=== PATIENT | female | born 1945 | race Caucasian/White ===

== ENCOUNTER → 2017-04-26 15:13 | Outpatient (CLI) | payer MEDICARE, SELFPAY ==
[2017-04-26 17:08] LABS: Absolute Lymphocyte Count 1.93 X10^3/ul (0.83-4.51); Absolute Neutrophil Count 3.6 X10^3/uL (2.0-7.7); Basophil# 0.02 X10^3/uL; Basophil% 0.3 % (0-1); Eosinophil# 0.12 X10^3/uL; Eosinophils% 1.9 % (0-5); Hematocrit 41.2 % (37-47); Hemoglobin 12.5 g/dl (12.0-15.0); Lymphocyte # 1.93 X10^3/ul (4.0); Lymphocyte % 31.1 % (19-41); Mean Corp Hgb Conc 30.3 g/gl (32-36); Mean Corpuscular Hgb 29.1 pg (27.0-32.0); Mean Platelet Vol. 11.1 fl (6.2-12.0); Monocyte# 0.49 X10^3/uL; Monocyte% 7.9 % (0-10); Neutrophil # 3.64 X10^3/uL (2.7-7.7); Neutrophil % 58.6 % (47-70); Platelet Count 147 K/mm3 (150-450); RBC Distribution Width CV 15.1 % (11.6-14.6); RBC Distribution Width SD 50.7 fl (35.1-43.9); Red Blood Count 4.29 M/mm3 (4.2-5.4); White Blood Count 6.2 K/mm3 (4.4-11.0)
[2017-04-26 17:11] LABS: POSITIVE COUNT NO; POSITIVE DIFFERENTIAL NO; POSITIVE MORPHOLOGY NO
[2017-04-26 17:18] LABS: ALB/GLOB Ratio 0.7 RATIO (0.9-2.4); AST(SGOT) 33 U/L (15-37); Alanine Aminotransfer ALT/SGPT 32 U/L (13-56); Albumin, Serum 3.1 g/dL (3.2-5.0); Alkaline Phosphatase 99 U/L (45-117); Anion Gap 5 (5-15); BUN 15 mg/dL (7-18); BUN/Creat Ratio 15.2 RATIO (10-20); Calcium,Total 9.4 mg/dL (8.5-10.1); Chloride 100 mmol/L (98-107); Creatinine, Serum 0.99 mg/dL (0.55-1.02); EST Glomerular Filtration Rate 59 mL/min (>60); Est Glom Filt Rate - Afr Amer 71 mL/min (>60); Globulin 4.3 g/dL (2.2-4.2); Glucose 192 mg/dL (74-106); Potassium 4.3 mmol/L (3.5-5.1); Protein, Total 7.4 g/dL (6.4-8.2); Sodium Level 142 mmol/L (136-145); Thyroid Stim Hormone (TSH) 2.28 uIU/mL (0.358-3.74)
[2017-04-27 10:31] LABS: Vitamin D,25 Hydroxy 27.3 ng/mL (19.95-100.01)
== END ==
PROVIDERS: Family Provider Family Medicine Geriatric Medicine; PCP Family Medicine Geriatric Medicine; Visit Provider Family Medicine Geriatric Medicine
DX: E87.6 Hypokalemia (principal); E11.9 Type 2 diabetes mellitus without complications; I10 Essential (primary) hypertension; E55.9 Vitamin D deficiency, unspecified
CPT/HCPCS: 36415; 80053; 82306; 84443; 85025

== ENCOUNTER → 2017-07-18 13:57 | Outpatient (CLI) | payer MEDICARE, SELFPAY ==
--- NOTE | 2017-07-18 14:20 | RAD_ITS ---
STUDY: X-RAY - CERVICAL SPINE REASON FOR EXAM: Female, 71 years old. Pain TECHNIQUE: 3 view(s) of the cervical spine were obtained. COMPARISON: None FINDINGS: Normal anterior atlantoaxial articulation. Normal odontoid process. There is straightening of the normal cervical lordosis. There is multi-level endplate spondylosis. There is multi-level degenerative disc disease with multilevel disc space narrowing. The soft tissue structures are unremarkable. There is no demonstrated fracture of the cervical spine. RAD/Cerv Spine 2 or 3 Views IMPRESSION: Degenerative changes. No acute abnormality. Electronically Signed: Antonio Man MD at 15:14 EDT , Service support ,
== END ==
LOC: RAD 13:59
PROVIDERS: Family Provider Family Medicine Geriatric Medicine; PCP Family Medicine Geriatric Medicine; Visit Provider Anesthesiology Pain Medicine
DX: M54.2 Cervicalgia (principal)
CPT/HCPCS: 72040

== ENCOUNTER 2017-07-26 11:26 | Inpatient (IN) | payer MEDICARE, SELFPAY ==
[2017-07-26] VITALS (20 sets, daily range): BP systolic 93–136; BP diastolic 39–109; PULSE 84–128; RESP 12–26; TEMP 36.6–37.9; O2SAT 94–100; BMI 52.8; BMI 50.8
--- NOTE | 2017-07-26 11:51 | EKG12_ITS ---
Test Reason : SOB Blood Pressure : / mmHG Vent. Rate : 111 BPM Atrial Rate : 111 BPM P-R Int : 182 ms QRS Dur : 112 ms QT Int : 344 ms P-R-T Axes : 074 -62 062 degrees QTc Int : 467 ms Sinus tachycardia Left axis deviation Incomplete left bundle branch block Abnormal ECG Confirmed by SANTIAGO RODRIGUEZ, ADELAIDE ([id number]), communications editor RUTH JUAREZ ([id number]) on 08/01/2017 1:38:34 PM Referred By: MANUEL/LOLA Confirmed By:ADELAIDE HENDERSON MD
--- NOTE | 2017-07-26 11:52 | CT_ITS ---
STUDY: CT ABDOMEN AND PELVIS WITHOUT CONTRAST REASON FOR EXAM: Female, 71 years old. Right upper quadrant pain. Dyspnea. RADIATION DOSAGE (If Supplied By Facility): CTDIvol = ( 24.18 ) mGy, DLP = ( 1189.94 ) mGycm TECHNIQUE: Transaxial images were obtained from the dome of the diaphragm to the symphysis pubis without oral contrast, and without intravenous contrast. Sagittal and coronal images were reconstructed. Individualized dose optimization techniques were used for this CT. COMPARISON: X-ray chest 07/26/2017. FINDINGS: Body wall soft tissues: There is a healed ventral midline abdominal wall incision, infraumbilical. There is morbid obesity. Osseous structures: Kyphoplasty T12. Old mild central superior plate compression deformities of T10 and T11. Old compression deformity of L3 and L5 with mild wedging. Generalized osteopenia. Thoracal lumbar junction kyphosis. Mild lumbar scoliosis. No apparent high-grade lumbar stenosis. Inferior chest: Mild bibasilar atelectasis slightly greater on the right. Lung bases otherwise clear. There is mild cardiomegaly. No pericardial effusion. Coronary calcifications are present. Distal esophagus is normal. Hepatobiliary: There is evidence of hepatic steatosis with no significant hepatomegaly. Post cystectomy. Nondilated intrahepatic biliary tree. Minimal chronic-appearing ectasia of the common bile duct. Pancreas: Mild atrophy. Spleen: Normal. Adrenal glands: Normal. Urogenital: Unremarkable kidneys, collecting systems, ureters, urinary bladder. Uterus absent. No adnexal mass or cyst. Pelvic floor and sidewalls and retroperitoneum: No mass or adenopathy. Vasculature: Mild atherosclerosis. Stomach: No acute process. Small bowel and mesentery: No acute process. Large bowel: The appendix is not clearly visible. There are no acute inflammatory features in the region of the cecum. There is a moderately prominent stool burden distributed throughout the large bowel, not extreme, unlikely to represent constipation. Clinically correlate. No acute inflammatory features of the large bowel or rectum. No evidence of large bowel malignancy. Free fluid or free air: None. CT/Abdomen/Pelvis without Cont IMPRESSION: 1. No definitive acute intra-abdominal process is identified. 2. Bibasilar pulmonary atelectasis is greater on the right, which may reflect splinting greater on the right in the setting of right upper quadrant pain. 3. There is evidence of hepatic steatosis although not severe, and there is no urbano enlargement of the liver. The gallbladder surgically absent. No acute biliary process is evident. Etiology of the patient's discomfort is not apparent on the study. 4. Multiple chronic appearing compression fractures of the lower thoracic and lumbar spine. If spinal pathology is suspected, consider follow-up spinal CT scan or MRI for additional characterization. Electronically Signed: Ridge Dominguez, at 13:16 EDT Tel , Service support ,
--- NOTE | 2017-07-26 12:02 | ED.VISSUMM ---
- ER Visit Summary Date of Service: 07/26/17 Chief Complaint: [] Weakness, shortness of breath, abdominal pain History of Present Illness: The patient is a 71 F [] morbidly obese female complaining of generalized weakness, right upper quadrant abdominal pain, shortness of breath. Patient has a history of COPD on 2.5 L of nasal cannula oxygen at all times. Denies cough. Denies fevers. Denies nausea/vomiting. Denies chest pain. Reports increased weakness with difficulty performing ADLs. Patient reports previous history of appendectomy, cholecystectomy, hysterectomy. Physical Examination: [] Afebrile, vital signs stable. Morbidly obese elderly female no acute distress cardiovascular exam is tachycardic with regular rhythm. Lungs are clear to auscultation with diminished breath sounds globally. Abdomen is large/obese, soft, mild right upper quadrant tenderness. No guarding or rebound. No significant lower extremity edema. Test Results: [] CT abdomen/pelvis: Negative. Chest x-ray: Right hilar infiltrate. Labs: Normal CBC, BMP. INR 1.1. Troponin negative. ABG reveals a pH of 7.342 with a PCO2 of 72 and a bicarbonate level of 39.2. EKG: Normal sinus rhythm with rate of 111 with 1 PVC. Emergency Department Course and Treatment: [] Patient was evaluated for shortness of breath and weakness. X-ray reveals committee acquired pneumonia. Patient was given intravenous Rocephin and intravenous azithromycin. Blood cultures ?2 were obtained. Patient did receive morphine and Zofran upon arrival for symptomatic treatment. She also received a small normal saline bolus of 500 cc. Case discussed with the hospitalist. Patient will be admitted to the general medical floor for further treatment and evaluation of community-acquired pneumonia. Treatment Plan: [] Admit for intravenous antibiotics and further respiratory treatment. Disposition: [] Admit, general medical floor. Stable. Impression: [] Community acquired pneumonia This note was generated with [employer] ([employer]) dictation software. It may contain incorrect words, spelling, and punctuation that were not noted in review of the chart prior to signing ED Disposition - Plan for ED Patient: Chief Complaint: Shortness of Breath Referrals: Stanley Page Chi, MD [Primary Care Provider] -
[2017-07-26] MEDS: Morphine 2 MG/ML Syringe IV (12:11)
[2017-07-26] MEDS: Ondansetron 4 MG/2 ML Vial IV (12:13)
[2017-07-26 12:17] LABS: Absolute Lymphocyte Count 2.73 X10^3/ul (0.83-4.51); Absolute Neutrophil Count 6.2 X10^3/uL (2.0-7.7); Basophil# 0.02 X10^3/uL; Basophil% 0.2 % (0-1); Eosinophil# 0.06 X10^3/uL; Eosinophils% 0.6 % (0-5); Hematocrit 48.9 % (37-47); Hemoglobin 14.8 g/dl (12.0-15.0); Lymphocyte # 2.73 X10^3/ul (4.0); Lymphocyte % 28.2 % (19-41); Mean Corp Hgb Conc 30.3 g/gl (32-36); Mean Corpuscular Hgb 28.3 pg (27.0-32.0); Mean Corpuscular Volume 93.5 fL (81-99); Mean Platelet Vol. 10.6 fl (6.2-12.0); Monocyte# 0.69 X10^3/uL; Monocyte% 7.1 % (0-10); Neutrophil # 6.17 X10^3/uL (2.7-7.7); Neutrophil % 63.8 % (47-70); Platelet Count 134 K/mm3 (150-450); RBC Distribution Width CV 14.5 % (11.6-14.6); RBC Distribution Width SD 48.9 fl (35.1-43.9); Red Blood Count 5.23 M/mm3 (4.2-5.4); White Blood Count 9.7 K/mm3 (4.4-11.0)
--- NOTE | 2017-07-26 12:25 | RAD_ITS ---
STUDY: X-RAY CHEST REASON FOR EXAM: Female, 71 years old. Shortness of breath/dyspnea. TECHNIQUE: Single AP portable view of the chest. COMPARISON: Comparison is made with prior study dated August 30, 2016. FINDINGS: EKG electrodes are seen. Limited inspiratory effort. Possible right infrahilar infiltrate and/or atelectasis. There is no demonstrated pleural abnormality. There is mild cardiac enlargement. Normal mediastinum and radha. Normal visualized pulmonary arteries. There is atherosclerotic calcification of the aortic arch with tortuosity. There are diffuse degenerative changes of the visualized thoracic spine. There is degenerative osteoarthritis of the bilateral shoulders. There is no demonstrated abnormality of the visualized soft tissue structures of the upper abdomen. RAD/Chest 1 View (Portable) IMPRESSION: Focal right infrahilar infiltrate and/or atelectasis. Electronically Signed: Jose Montenegro MD at 12:48 EDT Tel [phone], Service support ,
[2017-07-26 12:26] LABS: POSITIVE COUNT NO; POSITIVE DIFFERENTIAL NO; POSITIVE MORPHOLOGY NO
[2017-07-26 12:29] LABS: ALB/GLOB Ratio 0.6 RATIO (0.9-2.4); AST(SGOT) 75 U/L (15-37); Alanine Aminotransfer ALT/SGPT 43 U/L (13-56); Albumin, Serum 3.3 g/dL (3.2-5.0); Alkaline Phosphatase 109 U/L (45-117); Anion Gap 7 (5-15); BUN 11 mg/dL (7-18); BUN/Creat Ratio 9.5 RATIO (10-20); Calcium,Total 9.1 mg/dL (8.5-10.1); Chloride 95 mmol/L (98-107); Creatinine, Serum 1.16 mg/dL (0.55-1.02); EST Glomerular Filtration Rate 49 mL/min (>60); Est Glom Filt Rate - Afr Amer 59 mL/min (>60); Estimated Creatinine Clearance 31.95 ml/min; Globulin 5.3 g/dL (2.2-4.2); Glucose 213 mg/dL (74-106); Lipase 61 U/L (73-393); Potassium 5.3 mmol/L (3.5-5.1); Protein, Total 8.6 g/dL (6.4-8.2); Sodium Level 138 mmol/L (136-145)
[2017-07-26 12:51] LABS: Allen Test POS; Base Excess 13 mmol/L (-2 to +2); Bicarbonate 39.2 mmol/L (22-26); Blood Gas Specimen Type ART; O2 Delivery Device Nasal Can; PO2 89 mmHG (75-100); SITE R Radial; SO2 96 % (95-99); Time Given 1234; Total Carbon Dioxide 41 mmol/L; pCO2 72.3 mmHg (35-45); pH 7.34 (7.35-7.45)
[2017-07-26 12:53] LABS: International Normalized Ratio 1.1; Prothrombin Time (Protime)PT. 14.1 SECONDS (11.7-14.9)
[2017-07-26 13:01] LABS: BNP,B-Type NATRIURETIC PEPTIDE 45.4 pg/mL (0-100)
--- NOTE | 2017-07-26 13:49 | PCM.HP.STD ---
Problem List (1) Chronic neck pain Status: Chronic (2) Morbid obesity Status: Chronic (3) HTN (hypertension) Status: Chronic Qualifiers: Hypertension type: essential hypertension Qualified Code(s): I10 - Essential (primary) hypertension (4) HLD (hyperlipidemia) Status: Chronic Qualifiers: Hyperlipidemia type: unspecified Qualified Code(s): E78.5 - Hyperlipidemia, unspecified (5) COPD (chronic obstructive pulmonary disease) Status: Chronic Qualifiers: COPD type: unspecified COPD Qualified Code(s): J44.9 - Chronic obstructive pulmonary disease, unspecified (6) SARAH (obstructive sleep apnea) Status: Chronic (7) Diabetes mellitus, type II Status: Chronic Qualifiers: Diabetes mellitus jail insulin use: without tank terminal gauger use Diabetes mellitus complication status: with unspecified complications Qualified Code(s): E11.8 - Type 2 diabetes mellitus with unspecified complications (8) Anxiety and depression Status: Chronic (9) Chronic respiratory failure with hypoxia Status: Acute (10) Acute respiratory failure with hypoxia and hypercapnia Status: Acute (11) COPD exacerbation Status: Acute (12) Pneumonia Status: Acute Qualifiers: Pneumonia type: due to unspecified organism Laterality: right Lung location: unspecified part of lung Qualified Code(s): J18.9 - Pneumonia, unspecified organism History of Present Illness Date of Admission: 07/26/17 Chief Complaint: Dyspnea The patient is a 71 y/o F w/ PMHx: Chronic neck pain following w/ Dr. Galeano, Morbid Obesity, SARAH, HTN, HLD, Former Tobacco use, Chronic COPD w/ Chronic Hypoxic Respiratory Failure (2.5L NC), Diabetes mellitus type II, Anxiety and Depression who presents to the [facility] ED on 07/26/17 with shortness of breath, mild BL UQ abdominal pain, mildly increased cough, increased weakness x 24-48 hours. does note that she has been wheezing and also notes that she has become more fatigued and sleepy over the last several hours. In the ED work-up included T 98, heart rate 128, BP 93/53, respiratory rate 19, 96% on 5 L nasal cannula, CBC with WBC 9.7, hemoglobin 14.8, platelet 134 without shift, unremarkable coags, ABG with pH 7.34, bicarb 39.2, oxygen saturation 13, PCO2 72.3, PO2 89 on 4 L nasal cannula, CMP with potassium 5.3, chloride 95, CO2 36, BUN/creatinine 11/1.16, glucose 213, lactic acid 2, AST/ALT 75/43, troponin less than 0.015, BNP 45.4, EKG with tachycardic, chest x-ray focal right infrahilar infiltrate and or atelectasis, CT abdomen and pelvis with no acute definitive intra-abdominal process, bibasilar pulmonary atelectasis greater on the right which may reflect splinting greater on the right in the setting of right upper quadrant pain, evidence of hepatic steatosis although not severe with no urbano enlargement of the liver, no acute biliary process noted, multiple chronic appearing compression fractures of the lower thoracic and lumbar spine. In the ED patient administered normal saline, Zofran, morphine, Rocephin, azithromycin. Past Medical History Past Medical History (Chronic Problems): Chronic Problems Chronic neck pain (Chronic) Morbid obesity (Chronic) HTN (hypertension) (Chronic) HLD (hyperlipidemia) (Chronic) COPD (chronic obstructive pulmonary disease) (Chronic) SARAH (obstructive sleep apnea) (Chronic) Diabetes mellitus, type II (Chronic) Anxiety and depression (Chronic) Allergies No Known Allergies Allergy (Verified 07/26/17 11:29) Home Medications: Ambulatory Orders Medication Instructions Recorded Duloxetine HCl 60 mg PO BID 03/28/16 Furosemide 40 mg PO DAILY 03/28/16 Meclizine HCl [Antivert] 25 mg PO BID 03/28/16 Memantine HCl/Donepezil HCl 1 each PO DAILY 03/28/16 [Namzaric 28 mg-10 mg Capsule] Morphine Sulfate [Morphine Sulfate 15 mg PO BID 03/28/16 ER] Multivitamin [Multiple Vitamins] 1 each PO DAILY 03/28/16 Trazodone HCl 100 mg PO QHS 03/28/16 Colchicine 0.6 mg PO DAILY 07/26/17 Metformin HCl [Glucophage] 500 mg PO BID 07/26/17 Potassium Chloride [K-Dur] 20 meq PO BID 07/26/17 Pravastatin Sodium [Pravastatin 40 mg PO QHS 07/26/17 Sodium] Surgical History: - - Appendectomy, Cholecystectomy, Hysterectomy, BL TKR. 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 Tobacco Use: Non-smoker Alcohol: None Drugs: None - *Family History Maternal History Items: Cancer Paternal History Items: Cancer Review of Systems Constitutional: Reports: Malaise, Weakness, Fatigue. Denies: Chills, Fever, Weight Change HEENT: Denies: Head Aches, Sinus Congestion, Sinus Drainage Cardiovascular: Denies: Chest Pain, Palpitations Respiratory: Reports: Cough, Shortness of Breath, Shortness of breath at rest, Shortness of breath upon exertion, Sputum production, Wheezing Gastrointestinal: Reports: Abdominal Pain. Denies: Nausea, Vomiting Genitourinary: Denies: Dysuria Musculoskeletal: Reports: Back Pain, Neck Pain. Denies: Joint Pain, Joint Tenderness Skin: Denies: Rash, Wounds Neurological: Denies: Numbness, Tingling, Focal weakness Psychiatric: Reports: Anxiety, Depression. Denies: Homicidal Ideations, Suicidal Ideations Hematologic/ Lymphatic: Denies: Easy Bruising, Easy Bleeding VTE Information - Inpt Only VTE Present on Admission: No VTE Mechan Device Prophylaxis: SCD's VTE Pharm Prophylaxis ordered?: Yes Patient Problems: Active and Suspected Problems Chronic respiratory failure with hypoxia (Acute) Acute respiratory failure with hypoxia and hypercapnia (Acute) COPD exacerbation (Acute) Pneumonia (Acute) Subjective: Seated upright in the ED bed, lethargic, falling asleep easily. Objective: Physical Examination: General: awakens to stimuli, not markedly alert, oriented to person, place, time, sluggish responses, cooperative, seated upright in the ED bed, improved since initial presentation, still accessory muscle usage, still increased RR. Skin: normal color, turgor, no icterus, cyanosis. HEENT: AT/NC, EOMI but difficult to assess with lethargy, PERRLA, dry MM, no carotid bruits or JVD noted; although difficult to assess with thickened neck. Lungs: Severely diffusely diminished, distant BS, notably decreased bases, occasional soft end expiratory wheeze, poor effort, increased RR, accessory muscle usage, lethargic. Heart: Tachycardic with regular rhythm; no gallop, rub audible. Abdomen: soft, morbidly obese, BL UQ TTP, ND, distant and hypoactive BS, no HSM; although difficult to assess w/ discomfort and habitus. Extremities: no cyanosis, clubbing, or edema. Neurological: awakens to stimuli, not markedly alert, oriented to person, place, time, sluggish responses; cognitive function not baseline intact; pupils equally reactive to light and accomodation; cranial nerves II-XII grossly normal, moving all 4 extremities but severely globally decreased secondary to acute presentation. Psychiatric: affect appears flat, fatigued lethargic, no acute evidence of depressive or anxiety feelings. - Physical Exam Vital Signs Temp Pulse Resp BP Pulse Ox 98 F 128 H 19 H 93/53 L 95 07/26/17 11:27 07/26/17 13:02 07/26/17 13:02 07/26/17 13:02 07/26/17 13:02 Oxygen Flow Rate (L/min) 4 Oxygen Delivery Method Nasal Cannula Weight: 270 lb 8.115 oz Body Mass Index (BMI) 52.8 Laboratory Tests Past 24 Hrs 07/26/17 07/26/17 07/26/17 11:30 11:30 11:30 WBC 9.7 RBC 5.23 Hgb 14.8 Hct 48.9 H MCV 93.5 MCH 28.3 MCHC 30.3 L RDW 14.5 RDW Differential 48.9 H Plt Count 134 L MPV 10.6 Immature Gran % (Auto) 0.100 Neut % (Auto) 63.8 Lymph % (Auto) 28.2 Mcdonald % (Auto) 7.1 Eos % (Auto) 0.6 Baso % (Auto) 0.2 Absolute Neuts (auto) 6.2 Absolute Lymphs (auto) 2.73 Total Counted Not Reportable PT 14.1 INR 1.1 Specimen Type Sample Site pH Bicarbonate Actual POC Total CO2 Base Excess O2 Saturation ABG pCO2 ABG pO2 Jassi Test O2 Delivery Device Liter Flow Blood Gas Notified Whom Blood Gas Notified Time Sodium 138 Potassium 5.3 H Chloride 95 L Carbon Dioxide 36.0 H Anion Gap 7 BUN 11 Creatinine 1.16 H Estim Creat Clear Calc 31.95 Est GFR (MDRD) Af Amer 59 L Est GFR (MDRD) Non-Af 49 L BUN/Creatinine Ratio 9.5 L Glucose 213 H Lactic Acid Calcium 9.1 Total Bilirubin 0.80 AST 75 H ALT 43 Alkaline Phosphatase 109 Troponin I < 0.015 B-Natriuretic Peptide Total Protein 8.6 H Albumin 3.3 Globulin 5.3 H Albumin/Globulin Ratio 0.6 L Lipase 61 L 0507/26/17 07/26/17 11:30 12:29 12:40 WBC RBC Hgb Hct MCV MCH MCHC RDW RDW Differential Plt Count MPV Immature Gran % (Auto) Neut % (Auto) Lymph % (Auto) Mcdonald % (Auto) Eos % (Auto) Baso % (Auto) Absolute Neuts (auto) Absolute Lymphs (auto) Total Counted PT INR Specimen Type ART Sample Site R Radial pH 7.34 L Bicarbonate Actual 39.2 H POC Total CO2 41 Base Excess 13 H O2 Saturation 96 ABG pCO2 72.3 H* ABG pO2 89 Jassi Test POS O2 Delivery Device Nasal Can Liter Flow 4.0 Blood Gas Notified Whom ED Blood Gas Notified Time 1234 Sodium Potassium Chloride Carbon Dioxide Anion Gap BUN Creatinine Estim Creat Clear Calc Est GFR (MDRD) Af Amer Est GFR (MDRD) Non-Af BUN/Creatinine Ratio Glucose Lactic Acid 2.0 Calcium Total Bilirubin AST ALT Alkaline Phosphatase Troponin I B-Natriuretic Peptide 45.4 Total Protein Albumin Globulin Albumin/Globulin Ratio Lipase Assessment/Plan Active and Suspected Problems Chronic respiratory failure with hypoxia (Acute) Acute respiratory failure with hypoxia and hypercapnia (Acute) COPD exacerbation (Acute) Pneumonia (Acute) The patient is a 71 y/o F w/ PMHx: Chronic neck pain following w/ Dr. Galeano, Morbid Obesity, SARAH, HTN, HLD, Former Tobacco use, Chronic COPD w/ Chronic Hypoxic Respiratory Failure (2.5L NC), Diabetes mellitus type II, Anxiety and Depression who presents to the [facility] ED on 07/26/17 with shortness of breath, mild BL UQ abdominal pain, mildly increased cough, increased weakness x 24-48 hours. does note that she has been wheezing and also notes that she has become more fatigued and sleepy over the last several hours. (1) Acute Encephalopathy secondary to Acute Hypoxic and Hypercarbic Respiratory Failure on Chronic Hypoxic Respiratory Failure secondary to Community Acquired Pneumonia and Acute on Chronic COPD Exacerbation: Will admit to [facility] w/ Telemetry, initiate BIPAP therapy given sedate presentation and ABG w/ hypercarbia, transition to oxygen NC once appropriate w/ wean as tolerated to home oxygen supplementation, continue ATC duonebs, PRN albuterol, maintained on IV, HOB, IS parameters w/ pending sputum cultures and urine antigens. Bld cx x 2 obtained in the ED. (2) Hyperkalemia: Admission potassium 5.3, not markedly elevated, repeat level in a.m. Hold potassium supplementation. (3) Diabetes mellitus type II: Hold metformin, hemoglobin A1c pending, n.p.o. status until improved and then transition to ADA diet, accu checks w/ ISS. (4) Hypertension: Continue home regimen including Lasix, PRN hydralazine. (5) Hyperlipidemia: Continue home statin regimen. (6) Dementia, Alzheimer's disease without behavioral disturbance history: Maintain on home regimen, frequent re-orientation as needed. (7) Morbid Obesity: Weight loss and lifestyle changes encouraged, nutrition consulted. (8) Chronic neck pain: Fall precautions, PT/OT assessment once improved, following w/ Dr. Galeano, position changes. Hold morphine chronic BID regimen until status improves then restart to avoid withdrawal. (9) Former tobacco use: Encouraged continued cessation. (10) Anxiety and Depression: Maintain on home cymbalta regimen. Hold trazodone until status improves. (12) SARAH: BiPAP currently as noted above. (13) DVT Prophylaxis: SCDs, renally dosed lovenox. (14) CODE status: Discussed CODE status at length including difference between FULL code, DNR-CCA and DNR-CC status. Following discussions about the differences in these status, requested FULL CODE status. Advanced Care Planning Face to Face Time: 17 minutes. Code Visit Inpatient E&M: 89617 Init Hosp L3 Procedures: 56266 Advncd Care Plan 30 Min
--- NOTE | 2017-07-26 13:57 | HP.PCM_ITS ---
Problem List (1) Chronic neck pain Status: Chronic (2) Morbid obesity Status: Chronic (3) HTN (hypertension) Status: Chronic Qualifiers: Hypertension type: essential hypertension Qualified Code(s): I10 - Essential (primary) hypertension (4) HLD (hyperlipidemia) Status: Chronic Qualifiers: Hyperlipidemia type: unspecified Qualified Code(s): E78.5 - Hyperlipidemia , unspecified (5) COPD (chronic obstructive pulmonary disease) Status: Chronic Qualifiers: COPD type: unspecified COPD Qualified Code(s): J44.9 - Chronic obstructive pulmonary disease, unspecified (6) SARAH (obstructive sleep apnea) Status: Chronic (7) Diabetes mellitus, type II Status: Chronic Qualifiers: Diabetes mellitus retirement insulin use: without retirement use Diabetes mellitus complication status: with unspecified complications Qualified Code(s) : E11.8 - Type 2 diabetes mellitus with unspecified complications (8) Anxiety and depression Status: Chronic (9) Chronic respiratory failure with hypoxia Status: Acute (10) Acute respiratory failure with hypoxia and hypercapnia Status: Acute (11) COPD exacerbation Status: Acute (12) Pneumonia Status: Acute Qualifiers: Pneumonia type: due to unspecified organism Laterality: right Lung location: unspecified part of lung Qualified Code(s): J18.9 - Pneumonia, unspecified organism History of Present Illness Date of Admission: 07/26/17 Chief Complaint: Dyspnea The patient is a 71 y/o F w/ PMHx: Chronic neck pain following w/ Dr. Galeano, Morbid Obesity, SARAH, HTN, HLD, Former Tobacco use, Chronic COPD w/ Chronic Hypoxic Respiratory Failure (2.5L NC), Diabetes mellitus type II, Anxiety and Depression who presents to the [facility] ED on 07/26/17 with shortness of breath, mild BL UQ abdominal pain, mildly increased cough, increased weakness x 24-48 hours. does note that she has been wheezing and also notes that she has become more fatigued and sleepy over the last several hours. In the ED work-up included T 98, heart rate 128, BP 93/53, respiratory rate 19, 96% on 5 L nasal cannula, CBC with WBC 9.7, hemoglobin 14.8, platelet 134 without shift, unremarkable coags, ABG with pH 7.34, bicarb 39.2, oxygen saturation 13, PCO2 72.3, PO2 89 on 4 L nasal cannula, CMP with potassium 5.3, chloride 95, CO2 36, BUN/creatinine 11/1.16, glucose 213, lactic acid 2, AST/ALT 75/43, troponin less than 0.015, BNP 45.4, EKG with tachycardic, chest x-ray focal right infrahilar infiltrate and or atelectasis, CT abdomen and pelvis with no acute definitive intra-abdominal process, bibasilar pulmonary atelectasis greater on the right which may reflect splinting greater on the right in the setting of right upper quadrant pain, evidence of hepatic steatosis although not severe with no urbano enlargement of the liver, no acute biliary process noted, multiple chronic appearing compression fractures of the lower thoracic and lumbar spine. In the ED patient administered normal saline, Zofran, morphine, Rocephin, azithromycin. Past Medical History Past Medical History (Chronic Problems): Chronic Problems Chronic neck pain (Chronic) Morbid obesity (Chronic) HTN (hypertension) (Chronic) HLD (hyperlipidemia) (Chronic) COPD (chronic obstructive pulmonary disease) (Chronic) SARAH (obstructive sleep apnea) (Chronic) Diabetes mellitus, type II (Chronic) Anxiety and depression (Chronic) Allergies No Known Allergies Allergy (Verified 07/26/17 11:29) Home Medications: Ambulatory Orders Medication Instructions Recorded Duloxetine HCl 60 mg PO BID 03/28/16 Furosemide 40 mg PO DAILY 03/28/16 Meclizine HCl [Antivert] 25 mg PO BID 03/28/16 Memantine HCl/Donepezil HCl 1 each PO DAILY 03/28/16 [Namzaric 28 mg-10 mg Capsule] Morphine Sulfate [Morphine Sulfate 15 mg PO BID 03/28/16 ER] Multivitamin [Multiple Vitamins] 1 each PO DAILY 03/28/16 Trazodone HCl 100 mg PO QHS 03/28/16 Colchicine 0.6 mg PO DAILY 07/26/17 Metformin HCl [Glucophage] 500 mg PO BID 07/26/17 Potassium Chloride [K-Dur] 20 meq PO BID 07/26/17 Pravastatin Sodium [Pravastatin 40 mg PO QHS 07/26/17 Sodium] Surgical History: - - Appendectomy, Cholecystectomy, Hysterectomy, BL TKR. Psychiatric History: Anxiety, Depression PROCESS LEAD History: No pertinent PROCESS LEAD history Lives: Spouse/ Significant Other Smoking Status: Former smoker - Quit ~ 20 years prior, at least 1 ppd. Tobacco Use: Non-smoker Alcohol: None Drugs: None - *Family History Maternal History Items: Cancer Paternal History Items: Cancer Review of Systems Constitutional: Reports: Malaise, Weakness, Fatigue. Denies: Chills, Fever, Weight Change HEENT: Denies: Head Aches, Sinus Congestion, Sinus Drainage Cardiovascular: Denies: Chest Pain, Palpitations Respiratory: Reports: Cough, Shortness of Breath, Shortness of breath at rest, Shortness of breath upon exertion, Sputum production, Wheezing Gastrointestinal: Reports: Abdominal Pain. Denies: Nausea, Vomiting Genitourinary: Denies: Dysuria Musculoskeletal: Reports: Back Pain, Neck Pain. Denies: Joint Pain, Joint Tenderness Skin: Denies: Rash, Wounds Neurological: Denies: Numbness, Tingling, Focal weakness Psychiatric: Reports: Anxiety, Depression. Denies: Homicidal Ideations, Suicidal Ideations Hematologic/ Lymphatic: Denies: Easy Bruising, Easy Bleeding VTE Information - Inpt Only VTE Present on Admission: No VTE Mechan Device Prophylaxis: SCD's VTE Pharm Prophylaxis ordered?: Yes Patient Problems: Active and Suspected Problems Chronic respiratory failure with hypoxia (Acute) Acute respiratory failure with hypoxia and hypercapnia (Acute) COPD exacerbation (Acute) Pneumonia (Acute) Subjective: Seated upright in the ED bed, lethargic, falling asleep easily. Objective: Physical Examination: General: awakens to stimuli, not markedly alert, oriented to person, place, time , sluggish responses, cooperative, seated upright in the ED bed, improved since initial presentation, still accessory muscle usage, still increased RR. Skin: normal color, turgor, no icterus, cyanosis. HEENT: AT/NC, EOMI but difficult to assess with lethargy, PERRLA, dry MM, no carotid bruits or JVD noted; although difficult to assess with thickened neck. Lungs: Severely diffusely diminished, distant BS, notably decreased bases, occasional soft end expiratory wheeze, poor effort, increased RR, accessory muscle usage, lethargic. Heart: Tachycardic with regular rhythm; no gallop, rub audible. Abdomen: soft, morbidly obese, BL UQ TTP, ND, distant and hypoactive BS, no HSM ; although difficult to assess w/ discomfort and habitus. Extremities: no cyanosis, clubbing, or edema. Neurological: awakens to stimuli, not markedly alert, oriented to person, place , time, sluggish responses; cognitive function not baseline intact; pupils equally reactive to light and accomodation; cranial nerves II-XII grossly normal , moving all 4 extremities but severely globally decreased secondary to acute presentation. Psychiatric: affect appears flat, fatigued lethargic, no acute evidence of depressive or anxiety feelings. - Physical Exam Vital Signs Temp Pulse Resp BP Pulse Ox 98 F 128 H 19 H 93/53 L 95 07/26/17 11:27 07/26/17 13:02 07/26/17 13:02 07/26/17 13:02 07/26/17 13:02 Oxygen Flow Rate (L/min) 4 Oxygen Delivery Method Nasal Cannula Weight: 270 lb 8.115 oz Body Mass Index (BMI) 52.8 Laboratory Tests Past 24 Hrs 07/26/17 07/26/17 07/26/17 11:30 11:30 11:30 WBC 9.7 RBC 5.23 Hgb 14.8 Hct 48.9 H MCV 93.5 MCH 28.3 MCHC 30.3 L RDW 14.5 RDW Differential 48.9 H Plt Count 134 L MPV 10.6 Immature Gran % (Auto) 0.100 Neut % (Auto) 63.8 Lymph % (Auto) 28.2 [place] % (Auto) 7.1 Eos % (Auto) 0.6 Baso % (Auto) 0.2 Absolute Neuts (auto) 6.2 Absolute Lymphs (auto) 2.73 Total Counted Not Reportable PT 14.1 INR 1.1 Specimen Type Sample Site pH Bicarbonate Actual POC Total CO2 Base Excess O2 Saturation ABG pCO2 ABG pO2 Jassi Test O2 Delivery Device Liter Flow Blood Gas Notified Whom Blood Gas Notified Time Sodium 138 Potassium 5.3 H Chloride 95 L Carbon Dioxide 36.0 H Anion Gap 7 BUN 11 Creatinine 1.16 H Estim Creat Clear Calc 31.95 Est GFR (MDRD) Af Amer 59 L Est GFR (MDRD) Non-Af 49 L BUN/Creatinine Ratio 9.5 L Glucose 213 H Lactic Acid Calcium 9.1 Total Bilirubin 0.80 AST 75 H ALT 43 Alkaline Phosphatase 109 Troponin I < 0.015 B-Natriuretic Peptide Total Protein 8.6 H Albumin 3.3 Globulin 5.3 H Albumin/Globulin Ratio 0.6 L Lipase 61 L 0507/26/17 07/26/17 11:30 12:29 12:40 WBC RBC Hgb Hct MCV MCH MCHC RDW RDW Differential Plt Count MPV Immature Gran % (Auto) Neut % (Auto) Lymph % (Auto) [place] % (Auto) Eos % (Auto) Baso % (Auto) Absolute Neuts (auto) Absolute Lymphs (auto) Total Counted PT INR Specimen Type ART Sample Site R Radial pH 7.34 L Bicarbonate Actual 39.2 H POC Total CO2 41 Base Excess 13 H O2 Saturation 96 ABG pCO2 72.3 H* ABG pO2 89 Jassi Test POS O2 Delivery Device Nasal Can Liter Flow 4.0 Blood Gas Notified Whom ED Blood Gas Notified Time 1234 Sodium Potassium Chloride Carbon Dioxide Anion Gap BUN Creatinine Estim Creat Clear Calc Est GFR (MDRD) Af Amer Est GFR (MDRD) Non-Af BUN/Creatinine Ratio Glucose Lactic Acid 2.0 Calcium Total Bilirubin AST ALT Alkaline Phosphatase Troponin I B-Natriuretic Peptide 45.4 Total Protein Albumin Globulin Albumin/Globulin Ratio Lipase Assessment/Plan Active and Suspected Problems Chronic respiratory failure with hypoxia (Acute) Acute respiratory failure with hypoxia and hypercapnia (Acute) COPD exacerbation (Acute) Pneumonia (Acute) The patient is a 71 y/o F w/ PMHx: Chronic neck pain following w/ Dr. Galeano, Morbid Obesity, SARAH, HTN, HLD, Former Tobacco use, Chronic COPD w/ Chronic Hypoxic Respiratory Failure (2.5L NC), Diabetes mellitus type II, Anxiety and Depression who presents to the [facility] ED on 07/26/17 with shortness of breath, mild BL UQ abdominal pain, mildly increased cough, increased weakness x 24-48 hours. does note that she has been wheezing and also notes that she has become more fatigued and sleepy over the last several hours. (1) Acute Encephalopathy secondary to Acute Hypoxic and Hypercarbic Respiratory Failure on Chronic Hypoxic Respiratory Failure secondary to Community Acquired Pneumonia and Acute on Chronic COPD Exacerbation: Will admit to [facility] w/ Telemetry , initiate BIPAP therapy given sedate presentation and ABG w/ hypercarbia, transition to oxygen NC once appropriate w/ wean as tolerated to home oxygen supplementation, continue ATC duonebs, PRN albuterol, maintained on IV, HOB, IS parameters w/ pending sputum cultures and urine antigens. Bld cx x 2 obtained in the ED. (2) Hyperkalemia: Admission potassium 5.3, not markedly elevated, repeat level in a.m. Hold potassium supplementation. (3) Diabetes mellitus type II: Hold metformin, hemoglobin A1c pending, n.p.o. status until improved and then transition to ADA diet, accu checks w/ ISS. (4) Hypertension: Continue home regimen including Lasix, PRN hydralazine. (5) Hyperlipidemia: Continue home statin regimen. (6) Dementia, Alzheimer's disease without behavioral disturbance history: Maintain on home regimen, frequent re-orientation as needed. (7) Morbid Obesity: Weight loss and lifestyle changes encouraged, nutrition consulted. (8) Chronic neck pain: Fall precautions, PT/OT assessment once improved, following w/ Dr. Galeano, position changes. Hold morphine chronic BID regimen until status improves then restart to avoid withdrawal. (9) Former tobacco use: Encouraged continued cessation. (10) Anxiety and Depression: Maintain on home cymbalta regimen. Hold trazodone until status improves. (12) SARAH: BiPAP currently as noted above. (13) DVT Prophylaxis: SCDs, renally dosed lovenox. (14) CODE status: Discussed CODE status at length including difference between FULL code, DNR-CCA and DNR-CC status. Following discussions about the differences in these status, requested FULL CODE status. Advanced Care Planning Face to Face Time: 17 minutes. Code Visit Inpatient E&M: 82445 Init Hosp L3 Procedures: 58518 Advncd Care Plan 30 Min
[2017-07-26] MEDS: Ceftriaxone 1 GM/50 ML BAG IV (14:14)
[2017-07-26 15:16] LABS: Magnesium 2.1 mg/dL (1.6-2.6)
[2017-07-26] MEDS: Ipratropium/Albuterol Sulfate 3 ML AMPUL.NEB INHALATION ×3 (16:14→22:48)
[2017-07-26 16:23] LABS: Hemoglobin A1c 7.1 % (4.2-6.3)
[2017-07-26] MEDS: 0.9% Normal Saline 1,000 ML 100 ML IV (16:25)
[2017-07-26 16:34] LABS: Reflex Lactate? Y
--- NOTE | 2017-07-26 16:40 | NURSING ---
into pt's room as heard bipap alarming. pt found to be confused with legs over side of bed attempting to get up. pt uncooperative unable to reorient and had bipap off as well as attempting to pull iv out. workers compensation manager x2 to assist. attempted to reorient patient to place on bedpan and replace bipap. again pt restistant. called primary RN to room. shoeshiner to call family (unsure of baseline of confusion) spo2 checked 38% on ra, primary RN placed 6l up to 50's. pt hands held while placed back on bipap without o2. spo2 back up to 90's. Dr. melchor paged poly operator respiratory therapist paged. pt repositioned higher in bed. aware per shoeshiner stated pt is normally confused and that he's the only one that can calm her down so he is on his way in. see physician's notification charting. workers compensation manager now to be sitter. visual supervisor notified.
--- NOTE | 2017-07-26 16:48 | NURSING ---
Recieved call from TERRAZZO POLISHER who stated can you quickly come too room 325. Upon entering room, found pt attempting to crawl oob, pt was confusing, resisting care. x2 counterintelligence agent and [employer] ii inspector also in room. Pt appeared blue, did not appear to be in resp distress, pt refused to put bipap on was hitting at staff, x2 staff had to hold pts hands to check oxygen level which was 37% RA, pt again would not put bipap on. This RN quickly obtained 02 and while other 2 nurses help pts hands was able to place 6L via nasal canula on pt which brought 02 up to 56%, hairspring ii inspector called for Respiratory therapy and asked that TERRAZZO POLISHER obtain wrist restraints. Was able to get bipap on pt and 02 returned to 94% and was stable when resp therapy entered room. Call placed to to inquire abt pts baseline, he states pt is always confused and has dementia, he is usually the only person who can calm her down. on his way into hospital at this time. Continuous 02 monitor placed on pt and md notifed
[2017-07-26] MEDS: Haloperidol Lactate 5 MG/ML Vial IV (17:13)
--- NOTE | 2017-07-26 17:21 | NURSING ---
left another message for requesting his return call regarding transfer to icu and confusion
[2017-07-26 17:59] LABS: Lactic Acid 2.4 mmol/L (0.4-2.0)
[2017-07-26] MEDS: MethylPREDNISolone 125 MG/2 ML Vial IV (18:24)
[2017-07-26 18:26] LABS: Bedside Glucose 180 mg/dL (70-110)
[2017-07-26 19:01] LABS: Allen Test POS; Base Excess 16 mmol/L (-2 to +2); Bicarbonate 41.3 mmol/L (22-26); Blood Gas Specimen Type ART; EPAP 8; FI02 40; IPAP 12; PO2 78 mmHG (75-100); RR 12; SITE L Radial; SO2 94 % (95-99); Time Given 1845; Total Carbon Dioxide 44 mmol/L; pCO2 76.2 mmHg (35-45); pH 7.34 (7.35-7.45)
[2017-07-26] MEDS: Insulin Lispro 100 UNIT/ML INSULN.PEN SC (21:28)
[2017-07-26 21:31] LABS: Bedside Glucose 205 mg/dL (70-110)
[2017-07-27] VITALS (34 sets, daily range): BP systolic 91–152; BP diastolic 37–89; PULSE 83–131; RESP 11–26; TEMP 36.4–36.9; O2SAT 91–100
[2017-07-27] MEDS: Ipratropium/Albuterol Sulfate 3 ML AMPUL.NEB INHALATION ×6 (02:10→22:40)
--- NOTE | 2017-07-27 03:03 | CPS ---
decreased FIO2 to 35%
[2017-07-27] MEDS: 0.9% Normal Saline 1,000 ML 100 ML IV (03:59)
[2017-07-27] MEDS: CHLORHEXIDINE GLUC 2% CLOTH 1 EACH TOWELETTE TOPICAL (04:10)
[2017-07-27 04:25] LABS: Absolute Lymphocyte Count 0.54 X10^3/ul (0.83-4.51); Absolute Neutrophil Count 4.9 X10^3/uL (2.0-7.7); Basophil# 0.01 X10^3/uL; Basophil% 0.2 % (0-1); Hematocrit 41.1 % (37-47); Hemoglobin 12.4 g/dl (12.0-15.0); Lymphocyte # 0.54 X10^3/ul (4.0); Lymphocyte % 9.8 % (19-41); Mean Corp Hgb Conc 30.2 g/gl (32-36); Mean Corpuscular Hgb 28.4 pg (27.0-32.0); Mean Corpuscular Volume 94.1 fL (81-99); Mean Platelet Vol. 10.6 fl (6.2-12.0); Monocyte# 0.08 X10^3/uL; Monocyte% 1.5 % (0-10); Neutrophil # 4.86 X10^3/uL (2.7-7.7); Neutrophil % 88.3 % (47-70); Platelet Count 120 K/mm3 (150-450); RBC Distribution Width CV 14.3 % (11.6-14.6); RBC Distribution Width SD 47.1 fl (35.1-43.9); Red Blood Count 4.37 M/mm3 (4.2-5.4); White Blood Count 5.5 K/mm3 (4.4-11.0)
[2017-07-27 04:26] LABS: Differential Indicated SCAN CRITERIA MET; POSITIVE COUNT NO; POSITIVE DIFFERENTIAL YES; POSITIVE MORPHOLOGY NO
[2017-07-27 04:33] LABS: ALB/GLOB Ratio 0.6 RATIO (0.9-2.4); AST(SGOT) 26 U/L (15-37); Alanine Aminotransfer ALT/SGPT 28 U/L (13-56); Albumin, Serum 2.5 g/dL (3.2-5.0); Alkaline Phosphatase 84 U/L (45-117); Anion Gap 7 (5-15); BUN 13 mg/dL (7-18); BUN/Creat Ratio 12.9 RATIO (10-20); Calcium,Total 8.1 mg/dL (8.5-10.1); Chloride 99 mmol/L (98-107); Creatinine, Serum 1.01 mg/dL (0.55-1.02); EST Glomerular Filtration Rate 57 mL/min (>60); Est Glom Filt Rate - Afr Amer 69 mL/min (>60); Globulin 4.3 g/dL (2.2-4.2); Glucose 289 mg/dL (74-106); Potassium 4.1 mmol/L (3.5-5.1); Protein, Total 6.8 g/dL (6.4-8.2); Sodium Level 141 mmol/L (136-145)
[2017-07-27] MEDS: Insulin Lispro 100 UNIT/ML INSULN.PEN SC ×4 (06:04→21:54)
[2017-07-27 06:16] LABS: Bedside Glucose 288 mg/dL (70-110)
--- NOTE | 2017-07-27 07:04 | CON.PCM_ITS ---
Reason for Consult Date of Consultation: 07/27/17 Reason for Consultation: Respiratory failure History of Present Illness: The patient is a 71-year-old female, with a history as outlined below, who presented to the emergency department on July 26 with complaints of generalized weakness, cough, abdominal pain and shortness of breath. Only limited history could be obtained from the patient, she is a relatively poor historian and remains confused this morning. The patient does endorse a history of COPD and chronic hypoxemic respiratory failure, for which she utilizes 3 L/min of supplemental oxygen at her baseline. The patient also reportedly has a history of obstructive sleep apnea. However, it is unclear what her home Pap settings are or if she is compliant with the use of nocturnal Pap therapy at all. The patient does report a prior heavy smoking history, but states that she quit approximately 20 years ago. On presentation to the emergency department, the patient was noted to be afebrile hemodynamically stable. She was maintaining appropriate oxygen saturations on 5 L/min. Laboratory evaluation revealed no evidence of a leukocytosis. Coagulation profile is within normal limits. Chemistry profile was notable for a potassium of 5.3, chloride of 95 and serum bicarbonate of 36. There was evidence of acute kidney injury with a creatinine 1.16. Serum lactate was normal at 2.0. AST was mildly elevated at 75. CT abdomen/pelvis revealed bibasilar pulmonary atelectasis, hepatic steatosis along with multiple chronic appearing compression fractures of the lower thoracic and lumbar spine. Plain film chest x-ray revealed a focal right infrahilar infiltrate. The patient was placed on antibiotics. Due to the patient's tenuous respiratory status, BiPAP was initiated. The patient was subsequently transferred to the medical intensive care unit for ongoing management. Past Medical History Past Medical History (Chronic Problems): Chronic Problems Chronic neck pain (Chronic) Morbid obesity (Chronic) HTN (hypertension) (Chronic) HLD (hyperlipidemia) (Chronic) COPD (chronic obstructive pulmonary disease) (Chronic) SARAH (obstructive sleep apnea) (Chronic) Diabetes mellitus, type II (Chronic) Anxiety and depression (Chronic) Allergies No Known Allergies Allergy (Verified 07/26/17 11:29) Home Medications: Ambulatory Orders Medication Instructions Recorded Duloxetine HCl 60 mg PO BID 03/28/16 Furosemide 40 mg PO DAILY 03/28/16 Meclizine HCl [Antivert] 25 mg PO BID 03/28/16 Memantine HCl/Donepezil HCl 1 each PO DAILY 03/28/16 [Namzaric 28 mg-10 mg Capsule] Morphine Sulfate [Morphine Sulfate 15 mg PO BID 03/28/16 ER] Multivitamin [Multiple Vitamins] 1 each PO DAILY 03/28/16 Trazodone HCl 100 mg PO QHS 03/28/16 Colchicine 0.6 mg PO DAILY 07/26/17 Metformin HCl [Glucophage] 500 mg PO BID 07/26/17 Potassium Chloride [K-Dur] 20 meq PO BID 07/26/17 Pravastatin Sodium [Pravastatin 40 mg PO QHS 07/26/17 Sodium] Surgical History: - - Appendectomy, Cholecystectomy, Hysterectomy, BL TKR. Psychiatric History: Anxiety, Depression [employer] History: No pertinent [employer] history Lives: Spouse/ Significant Other Smoking Status: Former smoker - Quit ~ 20 years prior, at least 1 ppd. Tobacco Use: Non-smoker Alcohol: None Drugs: None - *Family History Maternal History Items: Cancer Paternal History Items: Cancer Review of Systems Constitutional: Reports: Malaise, Weakness. Denies: Chills, Fever Eyes: Denies: Blurred vision, Double vision HEENT: Denies: Head Aches, Sinus Congestion, Sinus Drainage Cardiovascular: Denies: Chest Pain, Palpitations Respiratory: Reports: Cough, Shortness of Breath, Wheezing Gastrointestinal: Reports: Abdominal Pain Genitourinary: Denies: Dysuria Musculoskeletal: Reports: Back Pain Skin: Denies: Rash, Wounds Neurological: Denies: Numbness, Tingling, Focal weakness Psychiatric: Reports: Anxiety, Depression Hematologic/ Lymphatic: Denies: Easy Bruising, Easy Bleeding Patient Problems: Active and Suspected Problems Chronic respiratory failure with hypoxia (Acute) Acute respiratory failure with hypoxia and hypercapnia (Acute) COPD exacerbation (Acute) Pneumonia (Acute) Objective: The patient's most recent lab work, culture data and imaging studies have all been personally reviewed. Strep and urine Legionella antigens were both negative. Blood cultures are pending. - Physical Exam General: Alert, Cooperative, No apparent distress, Confused, Disoriented, - - Currently tolerating BiPAP without issue. HEENT: Atraumatic, PERRLA, Normocephalic Oral: Dry Mucosa Neck: Supple, No Nodes, Trachea Midline, - - Large neck circumference with redundant soft tissue. Lungs: No rhonchi, No wheeze, No rales, Diminished Cardiovascular: Regular rate, Regular Rhythm, Normal S1, Normal S2, No murmurs Abdomen: Bowel Sounds Present, Soft, Hypoactive Bowel Sounds, Obese, Tender Extremities: No clubbing, No cyanosis, No edema Skin: No rashes, No breakdown Musculoskeletal: No Muscle Wasting Lymphatic: No Cervical, Supraclavicular, or Inguinal Adenopathy Neurological: - - No focal neurological deficits. Psych/Mental Status: Flat Affect, Restless Vital Signs Temp Pulse Resp BP Pulse Ox 97.5 F L 86 13 93/42 L 95 07/27/17 06:00 07/27/17 06:00 07/27/17 06:00 07/27/17 06:00 07/27/17 06:00 Oxygen Flow Rate (L/min) 4 Oxygen Delivery Method Bi-pap Weight: 261 lb 7.492 oz Body Mass Index (BMI) 50.8 Intake and Output for Last 24 Hours 07/25/17 07/26/17 07/27/17 23:59 23:59 23:59 Intake Total 992 / 992 553 / 553 Output Total 325 / 325 150 / 150 Balance 667 / 667 403 / 403 Microbiology Past 72 Hours 07/26/17 15:30 Streptococcus pneumoniae Antigen (M - Final Urine, Clean Catch 07/26/17 15:30 Legionella Antigen - Final Urine, Clean Catch Laboratory Tests Past 24 Hrs 07/26/17 07/26/17 07/26/17 15:10 17:09 18:49 WBC RBC Hgb Hct MCV MCH MCHC RDW RDW Differential Plt Count MPV Immature Gran % (Auto) Neut % (Auto) Lymph % (Auto) [place] % (Auto) Eos % (Auto) Baso % (Auto) Absolute Neuts (auto) Absolute Lymphs (auto) Total Counted Specimen Type ART Sample Site L Radial pH 7.34 L Bicarbonate Actual 41.3 H POC Total CO2 44 Base Excess 16 H O2 Saturation 94 L O2 % 40 ABG pCO2 76.2 H* ABG pO2 78 Jassi Test POS Respiration Rate 12 O2 Delivery Device Bi / C PAP EPAP 8 IPAP 12 Blood Gas Notified Whom HOSP Blood Gas Notified Time 1845 Sodium Potassium Chloride Carbon Dioxide Anion Gap BUN Creatinine Estim Creat Clear Calc Est GFR (MDRD) Af Amer Est GFR (MDRD) Non-Af BUN/Creatinine Ratio Glucose Hemoglobin A1c 7.1 H Lactic Acid 2.4 H Calcium Total Bilirubin AST ALT Alkaline Phosphatase Total Protein Albumin Globulin Albumin/Globulin Ratio 07/27/17 07/27/17 04:05 04:05 WBC 5.5 RBC 4.37 Hgb 12.4 Hct 41.1 MCV 94.1 MCH 28.4 MCHC 30.2 L RDW 14.3 RDW Differential 47.1 H Plt Count 120 L MPV 10.6 Immature Gran % (Auto) 0.200 Neut % (Auto) 88.3 H Lymph % (Auto) 9.8 L [place] % (Auto) 1.5 Eos % (Auto) 0.0 Baso % (Auto) 0.2 Absolute Neuts (auto) 4.9 Absolute Lymphs (auto) 0.54 L Total Counted Not Reportable Specimen Type Sample Site pH Bicarbonate Actual POC Total CO2 Base Excess O2 Saturation O2 % ABG pCO2 ABG pO2 Jassi Test Respiration Rate O2 Delivery Device EPAP IPAP Blood Gas Notified Whom Blood Gas Notified Time Sodium 141 Potassium 4.1 Chloride 99 Carbon Dioxide 35.0 H Anion Gap 7 BUN 13 Creatinine 1.01 Estim Creat Clear Calc 36.70 Est GFR (MDRD) Af Amer 69 Est GFR (MDRD) Non-Af 57 L BUN/Creatinine Ratio 12.9 Glucose 289 H Hemoglobin A1c Lactic Acid Calcium 8.1 L Total Bilirubin 0.50 AST 26 ALT 28 Alkaline Phosphatase 84 Total Protein 6.8 Albumin 2.5 L Globulin 4.3 H Albumin/Globulin Ratio 0.6 L POC Glucose 07/27/17 07/26/17 07/26/17 06:04 21:24 18:21 POC Glucose 288 H 205 H 180 H Clinical Impression(s) from Imaging Studies Abdomen/Pelvis CT 07/26/17 11:52 IMPRESSION: 1. No definitive acute intra-abdominal process is identified. 2. Bibasilar pulmonary atelectasis is greater on the right, which may reflect splinting greater on the right in the setting of right upper quadrant pain. 3. There is evidence of hepatic steatosis although not severe, and there is no urbano enlargement of the liver. The gallbladder surgically absent. No acute biliary process is evident. Etiology of the patient's discomfort is not apparent on the study. 4. Multiple chronic appearing compression fractures of the lower thoracic and lumbar spine. If spinal pathology is suspected, consider follow-up spinal CT scan or MRI for additional characterization. Electronically Signed: Ridge Angelica, at 13:16 EDT Tel , Service support , Chest X-Ray 07/26/17 12:25 IMPRESSION: Focal right infrahilar infiltrate and/or atelectasis. Electronically Signed: Jose Montenegro MD at 12:48 EDT Tel [phone], Service support , Assessment/Plan Active and Suspected Problems Chronic respiratory failure with hypoxia (Acute) Acute respiratory failure with hypoxia and hypercapnia (Acute) COPD exacerbation (Acute) Pneumonia (Acute) RECOMMENDATIONS: 1. Wean patient from BiPAP as tolerated. 2. Maintain oxygen saturations 88-92%, to prevent paradoxical CO2 retention. 3. Continue to hold sedating medications. 4. Continue scheduled aerosol treatments, along with antibiotics, pending finalized infectious workup. 5. Transition from IV steroids to prednisone 40 mg daily by mouth. 6. Encourage incentive spirometer use and mobilize patient as tolerated. IMPRESSIONS: 1. Acute on chronic hypoxemic and hypercarbic respiratory failure 2/2 presumed COPD with exacerbation due to CAP The patient presented to the hospital with CO2 retention, which appears to be chronic, requiring the initiation of BiPAP support. Her mentation has subsequently improved. She will remain on broad-spectrum antibiotics, pending infectious workup. Scheduled aerosol treatments along with steroids will be continued. 2. Hypercarbic encephalopathy The patient CO2 retention was likely the consequence of her underlying lung disease, in combination with #3 along with the use of multiple sedating medications in her home environment. Her mentation has improved with the use of BiPAP. Sedating medications are currently on hold. Her COPD exacerbation is being addressed as noted above. Recommend continuing BiPAP therapy with naps and nightly as ordered. 3. Obstructive sleep apnea/alveolar hypoventilation secondary to super morbid obesity The patient does endorse a history of SARAH. However, her compliance with use of nocturnal Pap therapy is not known. It is highly recommended that given her CO2 retention, that she be on BiPAP therapy with naps and nightly. She will be at high risk for future CO2 retention with the use of sedating medications, including opiate pain meds. 4. Chronic pain syndrome/diabetes/hypertension/hyperlipidemia/dementia/tobacco dependence in remission/anxiety and depression Complicates care, management, recovery and prognosis. Continue to hold pain medications at the current time. Okay to advance diet from my perspective. Recommend physical therapy evaluation. This note was generated with CME dictation software. It may contain incorrect words, spelling, and punctuation that were not noted in checking the note before signing. Code Visit Inpatient E&M: 84911 Init Hosp L3
--- NOTE | 2017-07-27 08:35 | PCM.PROGNOTE ---
Patient Problems: Active and Suspected Problems Chronic respiratory failure with hypoxia (Acute) Acute respiratory failure with hypoxia and hypercapnia (Acute) COPD exacerbation (Acute) Pneumonia (Acute) Subjective: She is somnolent, but arousable with tactile stimuli. Confused / disoriented still. - Physical Exam General: Confused, Disoriented, Lethargic HEENT: Atraumatic, PERRLA Oral: Moist Mucosa Neck: Supple, No JVD Lungs: Diminished Cardiovascular: Regular rate, Regular Rhythm, Normal S1, Normal S2, No murmurs, No Ectopic Activity Abdomen: Bowel Sounds Present, Soft, Non Tender, Non-Distended, No Hepato-splenomegaly, Obese Extremities: No clubbing, No cyanosis, No edema Skin: No rashes, No breakdown Musculoskeletal: No Tenderness to Palpation of Joints or Extremities, No Muscle Wasting Lymphatic: No Cervical, Supraclavicular, or Inguinal Adenopathy Neurological: Cranial nerves II-XII grossly intact, Neuro grossly intact Psych/Mental Status: - - Somnolent. Vital Signs Temp Pulse Resp BP Pulse Ox 97.5 F L 94 17 113/55 L 97 07/27/17 08:00 07/27/17 08:00 07/27/17 08:00 07/27/17 08:00 07/27/17 08:00 Oxygen Flow Rate (L/min) 4 Oxygen Delivery Method Bi-pap Weight: 261 lb 7.492 oz Body Mass Index (BMI) 50.8 Intake and Output for Last 24 Hours 07/25/17 07/26/17 07/27/17 23:59 23:59 23:59 Intake Total 992 / 992 553 / 553 Output Total 325 / 325 150 / 150 Balance 667 / 667 403 / 403 Microbiology Past 72 Hours 07/26/17 15:30 Streptococcus pneumoniae Antigen (M - Final Urine, Clean Catch 07/26/17 15:30 Legionella Antigen - Final Urine, Clean Catch Laboratory Tests Past 24 Hrs 07/26/17 07/26/17 07/26/17 15:10 17:09 18:49 WBC RBC Hgb Hct MCV MCH MCHC RDW RDW Differential Plt Count MPV Immature Gran % (Auto) Neut % (Auto) Lymph % (Auto) [place] % (Auto) Eos % (Auto) Baso % (Auto) Absolute Neuts (auto) Absolute Lymphs (auto) Total Counted Specimen Type ART Sample Site L Radial pH 7.34 L Bicarbonate Actual 41.3 H POC Total CO2 44 Base Excess 16 H O2 Saturation 94 L O2 % 40 ABG pCO2 76.2 H* ABG pO2 78 Jassi Test POS Respiration Rate 12 O2 Delivery Device Bi / C PAP EPAP 8 IPAP 12 Blood Gas Notified Whom [facility] Blood Gas Notified Time 1845 Sodium Potassium Chloride Carbon Dioxide Anion Gap BUN Creatinine Estim Creat Clear Calc Est GFR (MDRD) Af Amer Est GFR (MDRD) Non-Af BUN/Creatinine Ratio Glucose Hemoglobin A1c 7.1 H Lactic Acid 2.4 H Calcium Total Bilirubin AST ALT Alkaline Phosphatase Total Protein Albumin Globulin Albumin/Globulin Ratio 07/27/17 07/27/17 04:05 04:05 WBC 5.5 RBC 4.37 Hgb 12.4 Hct 41.1 MCV 94.1 MCH 28.4 MCHC 30.2 L RDW 14.3 RDW Differential 47.1 H Plt Count 120 L MPV 10.6 Immature Gran % (Auto) 0.200 Neut % (Auto) 88.3 H Lymph % (Auto) 9.8 L [place] % (Auto) 1.5 Eos % (Auto) 0.0 Baso % (Auto) 0.2 Absolute Neuts (auto) 4.9 Absolute Lymphs (auto) 0.54 L Total Counted Not Reportable Specimen Type Sample Site pH Bicarbonate Actual POC Total CO2 Base Excess O2 Saturation O2 % ABG pCO2 ABG pO2 Jassi Test Respiration Rate O2 Delivery Device EPAP IPAP Blood Gas Notified Whom Blood Gas Notified Time Sodium 141 Potassium 4.1 Chloride 99 Carbon Dioxide 35.0 H Anion Gap 7 BUN 13 Creatinine 1.01 Estim Creat Clear Calc 36.70 Est GFR (MDRD) Af Amer 69 Est GFR (MDRD) Non-Af 57 L BUN/Creatinine Ratio 12.9 Glucose 289 H Hemoglobin A1c Lactic Acid Calcium 8.1 L Total Bilirubin 0.50 AST 26 ALT 28 Alkaline Phosphatase 84 Total Protein 6.8 Albumin 2.5 L Globulin 4.3 H Albumin/Globulin Ratio 0.6 L POC Glucose 07/27/17 07/26/17 07/26/17 06:04 21:24 18:21 POC Glucose 288 H 205 H 180 H Diagnostic Data Abdomen/Pelvis CT 07/26/17 11:52 IMPRESSION: 1. No definitive acute intra-abdominal process is identified. 2. Bibasilar pulmonary atelectasis is greater on the right, which may reflect splinting greater on the right in the setting of right upper quadrant pain. 3. There is evidence of hepatic steatosis although not severe, and there is no urbano enlargement of the liver. The gallbladder surgically absent. No acute biliary process is evident. Etiology of the patient's discomfort is not apparent on the study. 4. Multiple chronic appearing compression fractures of the lower thoracic and lumbar spine. If spinal pathology is suspected, consider follow-up spinal CT scan or MRI for additional characterization. Electronically Signed: Ridge Dominguez, at 13:16 EDT Tel , Service support , Chest X-Ray 07/26/17 12:25 IMPRESSION: Focal right infrahilar infiltrate and/or atelectasis. Electronically Signed: Jose Montenegro MD at 12:48 EDT Tel [phone], Service support , Medical Necessity - Tobacco Use Smoking Status: Former smoker - Quit ~ 20 years prior, at least 1 ppd. Tobacco Use: Non-smoker Assessment/Plan Active and Suspected Problems Chronic respiratory failure with hypoxia (Acute) Acute respiratory failure with hypoxia and hypercapnia (Acute) COPD exacerbation (Acute) Pneumonia (Acute) Patient is a 71 years old female, who presents with increasing shortness of breath, admitted on 07/26/17. She presents with respiratory failure with hypoxia and hypercapnia with underling COPD and chronic respiratory failure with home oxygen. She was found to have right infrahilar infiltrate. WBC was normal and she was afebrile. Oxygen saturation was 96% with NC 5 liter. Her baseline is 2.5 liter at home. She was initially admitted to medical floor with BiPAP, but she became very agitated, unable to maintain BiPAP apparatus. She was transferred to ICU. #1 Acute on chronic combined hypoxic and hypercapnic respiratory failure. With underling pneumonia and COPD exacerbation. Started on BiPAP, continue. Bronchodilator: DuoNeb + albuterol [place]. Antibiotics: ceftriaxone / azithromycin. Solu-Medrol 40 mg IVP Q8. Pulmonary consultation appreciated. Patient is improving. Continue current care as above. #2 Pneumonia, bacterial. Antibiotics as above. Legionella / pneumococcus urine Ag negative. Blood culture negative to date. Continue current antibiotics. #3 Confusion with metabolic encephalopathy. Due to infectious process and acute respiratory failure. She has underling dementia. She is doing better today. #4 DM II. Hold oral hypoglycemic agent. Continue sliding scale insulin. #5 Hyperkalemia. Potassium 5.3. K+ supplement on hold. IVF hydration. Monitor BMP. #6 Chronic neck pain. Morphine on hold. Resume when she is more awake. #7 Dementia. Alzheimer type, chronic. #8 SARAH. #9 Morbid obesity. BMI 51.1. #10 Essential hypertension. Blood pressure is adequate. VTE prophylaxis: Lovenox / SCD. GI prophylaxis: PPI po. She is full code. Disposition: Home when stable. Code Visit Inpatient E&M: 08864 Subs Hosp L3
--- NOTE | 2017-07-27 08:38 | PN_ITS ---
Patient Problems: Active and Suspected Problems Chronic respiratory failure with hypoxia (Acute) Acute respiratory failure with hypoxia and hypercapnia (Acute) COPD exacerbation (Acute) Pneumonia (Acute) Subjective: She is somnolent, but arousable with tactile stimuli. Confused / disoriented still. - Physical Exam General: Confused, Disoriented, Lethargic HEENT: Atraumatic, PERRLA Oral: Moist Mucosa Neck: Supple, No JVD Lungs: Diminished Cardiovascular: Regular rate, Regular Rhythm, Normal S1, Normal S2, No murmurs, No Ectopic Activity Abdomen: Bowel Sounds Present, Soft, Non Tender, Non-Distended, No Hepato- splenomegaly, Obese Extremities: No clubbing, No cyanosis, No edema Skin: No rashes, No breakdown Musculoskeletal: No Tenderness to Palpation of Joints or Extremities, No Muscle Wasting Lymphatic: No Cervical, Supraclavicular, or Inguinal Adenopathy Neurological: Cranial nerves II-XII grossly intact, Neuro grossly intact Psych/Mental Status: - - Somnolent. Vital Signs Temp Pulse Resp BP Pulse Ox 97.5 F L 94 17 113/55 L 97 07/27/17 08:00 07/27/17 08:00 07/27/17 08:00 07/27/17 08:00 07/27/17 08:00 Oxygen Flow Rate (L/min) 4 Oxygen Delivery Method Bi-pap Weight: 261 lb 7.492 oz Body Mass Index (BMI) 50.8 Intake and Output for Last 24 Hours 07/25/17 07/26/17 07/27/17 23:59 23:59 23:59 Intake Total 992 / 992 553 / 553 Output Total 325 / 325 150 / 150 Balance 667 / 667 403 / 403 Microbiology Past 72 Hours 07/26/17 15:30 Streptococcus pneumoniae Antigen (M - Final Urine, Clean Catch 07/26/17 15:30 Legionella Antigen - Final Urine, Clean Catch Laboratory Tests Past 24 Hrs 07/26/17 07/26/17 07/26/17 15:10 17:09 18:49 WBC RBC Hgb Hct MCV MCH MCHC RDW RDW Differential Plt Count MPV Immature Gran % (Auto) Neut % (Auto) Lymph % (Auto) [place] % (Auto) Eos % (Auto) Baso % (Auto) Absolute Neuts (auto) Absolute Lymphs (auto) Total Counted Specimen Type ART Sample Site L Radial pH 7.34 L Bicarbonate Actual 41.3 H POC Total CO2 44 Base Excess 16 H O2 Saturation 94 L O2 % 40 ABG pCO2 76.2 H* ABG pO2 78 Jassi Test POS Respiration Rate 12 O2 Delivery Device Bi / C PAP EPAP 8 IPAP 12 Blood Gas Notified Whom [facility] Blood Gas Notified Time 1845 Sodium Potassium Chloride Carbon Dioxide Anion Gap BUN Creatinine Estim Creat Clear Calc Est GFR (MDRD) Af Amer Est GFR (MDRD) Non-Af BUN/Creatinine Ratio Glucose Hemoglobin A1c 7.1 H Lactic Acid 2.4 H Calcium Total Bilirubin AST ALT Alkaline Phosphatase Total Protein Albumin Globulin Albumin/Globulin Ratio 07/27/17 07/27/17 04:05 04:05 WBC 5.5 RBC 4.37 Hgb 12.4 Hct 41.1 MCV 94.1 MCH 28.4 MCHC 30.2 L RDW 14.3 RDW Differential 47.1 H Plt Count 120 L MPV 10.6 Immature Gran % (Auto) 0.200 Neut % (Auto) 88.3 H Lymph % (Auto) 9.8 L [place] % (Auto) 1.5 Eos % (Auto) 0.0 Baso % (Auto) 0.2 Absolute Neuts (auto) 4.9 Absolute Lymphs (auto) 0.54 L Total Counted Not Reportable Specimen Type Sample Site pH Bicarbonate Actual POC Total CO2 Base Excess O2 Saturation O2 % ABG pCO2 ABG pO2 Jassi Test Respiration Rate O2 Delivery Device EPAP IPAP Blood Gas Notified Whom Blood Gas Notified Time Sodium 141 Potassium 4.1 Chloride 99 Carbon Dioxide 35.0 H Anion Gap 7 BUN 13 Creatinine 1.01 Estim Creat Clear Calc 36.70 Est GFR (MDRD) Af Amer 69 Est GFR (MDRD) Non-Af 57 L BUN/Creatinine Ratio 12.9 Glucose 289 H Hemoglobin A1c Lactic Acid Calcium 8.1 L Total Bilirubin 0.50 AST 26 ALT 28 Alkaline Phosphatase 84 Total Protein 6.8 Albumin 2.5 L Globulin 4.3 H Albumin/Globulin Ratio 0.6 L POC Glucose 07/27/17 07/26/17 07/26/17 06:04 21:24 18:21 POC Glucose 288 H 205 H 180 H Diagnostic Data Abdomen/Pelvis CT 07/26/17 11:52 IMPRESSION: 1. No definitive acute intra-abdominal process is identified. 2. Bibasilar pulmonary atelectasis is greater on the right, which may reflect splinting greater on the right in the setting of right upper quadrant pain. 3. There is evidence of hepatic steatosis although not severe, and there is no urbano enlargement of the liver. The gallbladder surgically absent. No acute biliary process is evident. Etiology of the patient's discomfort is not apparent on the study. 4. Multiple chronic appearing compression fractures of the lower thoracic and lumbar spine. If spinal pathology is suspected, consider follow-up spinal CT scan or MRI for additional characterization. Electronically Signed: Ridge Dominguez, at 13:16 EDT Tel , Service support , Chest X-Ray 07/26/17 12:25 IMPRESSION: Focal right infrahilar infiltrate and/or atelectasis. Electronically Signed: Jose Montenegro MD at 12:48 EDT Tel [phone], Service support , Medical Necessity - Tobacco Use Smoking Status: Former smoker - Quit ~ 20 years prior, at least 1 ppd. Tobacco Use: Non-smoker Assessment/Plan Active and Suspected Problems Chronic respiratory failure with hypoxia (Acute) Acute respiratory failure with hypoxia and hypercapnia (Acute) COPD exacerbation (Acute) Pneumonia (Acute) Patient is a 71 years old female, who presents with increasing shortness of breath, admitted on 07/26/17. She presents with respiratory failure with hypoxia and hypercapnia with underling COPD and chronic respiratory failure with home oxygen. She was found to have right infrahilar infiltrate. WBC was normal and she was afebrile. Oxygen saturation was 96% with NC 5 liter. Her baseline is 2.5 liter at home. She was initially admitted to medical floor with BiPAP, but she became very agitated, unable to maintain BiPAP apparatus. She was transferred to ICU. #1 Acute on chronic combined hypoxic and hypercapnic respiratory failure. With underling pneumonia and COPD exacerbation. Started on BiPAP, continue. Bronchodilator: DuoNeb + albuterol MN. Antibiotics: ceftriaxone / azithromycin. Solu-Medrol 40 mg IVP Q8. Pulmonary consultation appreciated. Patient is improving. Continue current care as above. #2 Pneumonia, bacterial. Antibiotics as above. Legionella / pneumococcus urine Ag negative. Blood culture negative to date. Continue current antibiotics. #3 Confusion with metabolic encephalopathy. Due to infectious process and acute respiratory failure. She has underling dementia. She is doing better today. #4 DM II. Hold oral hypoglycemic agent. Continue sliding scale insulin. #5 Hyperkalemia. Potassium 5.3. K+ supplement on hold. IVF hydration. Monitor BMP. #6 Chronic neck pain. Morphine on hold. Resume when she is more awake. #7 Dementia. Alzheimer type, chronic. #8 SARAH. #9 Morbid obesity. BMI 51.1. #10 Essential hypertension. Blood pressure is adequate. VTE prophylaxis: Lovenox / SCD. GI prophylaxis: PPI po. She is full code. Disposition: Home when stable. Code Visit Inpatient E&M: 12080 Subs Hosp L3
--- NOTE | 2017-07-27 09:55 | CASEMGMT ---
Addendum entered by Jarad Hart 07/27/17 11:36: -Call to . He was able to clarify Home Health Agency and Oxygen company. [facility] (RN/AIDE, no PT/OT currently, but can be added through this agency on dc if needed) PH: [phone] FX: [phone] [facility] PH (weekend/holiday#) FX: -EDMUNDO ALAMO called to [facility]. Per Aline, oxygen script is for @ night only-no portability is available. IF continuous oxygen is needed, new oxygen testing and script will need to be sent to [facility]. See GREEN SHEET ON CHART Original Note: See EDMUNDO ALAMO Assessment Link. DC PLAN: undetermined PT is sleepy, answers questions, but unable to give details- unsure which oxygen company she uses, stated she has someone come into home to assist but could not give details re: home health vs private pay. -EDMUNDO ALAMO will attempt to speak with when he comes to see pt, or will call to further discuss DC planning needs. Zoila DARBY RN ACM
[2017-07-27] MEDS: Furosemide 40 MG Tablet PO (10:29)
[2017-07-27] MEDS: Memantine Hydrochloride 10 MG Tablet PO ×2 (10:29→21:55)
[2017-07-27] MEDS: Glucerna Shake 120 ML LIQUID PO ×3 (10:29→21:54)
[2017-07-27] MEDS: DULoxetine Hcl 60 MG Capsule PO ×2 (10:29→21:54)
[2017-07-27] MEDS: guaiFENesin 1,200 MG Tablet 1200 MG PO ×2 (10:30→21:55)
[2017-07-27] MEDS: Ceftriaxone 1 GM/50 ML BAG IV (11:26)
[2017-07-27] MEDS: Enoxaparin 30 MG/0.3 ML Syringe SC (11:26)
[2017-07-27] MEDS: Pantoprazole Sodium 20 MG Tablet PO (11:26)
[2017-07-27] MEDS: Senna/Docusate Sodium 1 Tablet 2 TABLET PO ×2 (11:26→21:55)
--- NOTE | 2017-07-27 11:54 | CASEMGMT ---
Intro role of CM to in room as he has arrived to visit pt. Discussed plan for home with hhs vs SNF on dc. would like to take pt home if possible. Discussed oxygen through [facility]- may need continuous oxygen and then portable tanks to be delivered, and resuming HHS if goes home. Recommend PT/OT be added to RN/aide for home. and pt are agreeable. Questions answered. -If SNF is recommended, would need prior authorization and pt would need to stay over weekend to have precert initiated on 07/30/17. Zoila CHRISTINEN RN AC
[2017-07-27 16:36] LABS: Bedside Glucose 325 mg/dL (70-110)
[2017-07-27 16:41] LABS: Bedside Glucose 435 mg/dL (70-110)
[2017-07-27 17:27] LABS: M R Staph aureus DNA By PCR Negative (Negative); Probe Check PASS; Specimen Processing Control PASS
[2017-07-27] MEDS: Donepezil HCl 10 MG Tablet PO (21:54)
[2017-07-27] MEDS: Pravastatin 40 MG Tablet PO (21:55)
[2017-07-27 22:26] LABS: Bedside Glucose 359 mg/dL (70-110)
[2017-07-28] VITALS (29 sets, daily range): BP systolic 106–141; BP diastolic 48–89; PULSE 84–103; RESP 12–21; TEMP 36.6–37.2; O2SAT 92–100
[2017-07-28 04:39] LABS: Absolute Lymphocyte Count 1.59 X10^3/ul (0.83-4.51); Absolute Neutrophil Count 8.4 X10^3/uL (2.0-7.7); Basophil# 0.01 X10^3/uL; Basophil% 0.1 % (0-1); Eosinophil# 0.01 X10^3/uL; Eosinophils% 0.1 % (0-5); Hematocrit 41.9 % (37-47); Hemoglobin 12.8 g/dl (12.0-15.0); Lymphocyte # 1.59 X10^3/ul (4.0); Lymphocyte % 14.8 % (19-41); Mean Corp Hgb Conc 30.5 g/gl (32-36); Mean Corpuscular Hgb 28.8 pg (27.0-32.0); Mean Corpuscular Volume 94.2 fL (81-99); Mean Platelet Vol. 10.5 fl (6.2-12.0); Monocyte# 0.76 X10^3/uL; Monocyte% 7.1 % (0-10); Neutrophil # 8.38 X10^3/uL (2.7-7.7); Neutrophil % 77.7 % (47-70); Platelet Count 133 K/mm3 (150-450); RBC Distribution Width CV 14.2 % (11.6-14.6); RBC Distribution Width SD 47.1 fl (35.1-43.9); Red Blood Count 4.45 M/mm3 (4.2-5.4); White Blood Count 10.8 K/mm3 (4.4-11.0)
[2017-07-28 04:42] LABS: POSITIVE COUNT NO; POSITIVE DIFFERENTIAL NO; POSITIVE MORPHOLOGY NO
[2017-07-28 04:52] LABS: Anion Gap 6 (5-15); BUN 27 mg/dL (7-18); BUN/Creat Ratio 27.6 RATIO (10-20); Calcium,Total 9.1 mg/dL (8.5-10.1); Chloride 100 mmol/L (98-107); Creatinine, Serum 0.98 mg/dL (0.55-1.02); EST Glomerular Filtration Rate 59 mL/min (>60); Est Glom Filt Rate - Afr Amer 72 mL/min (>60); Estimated Creatinine Clearance 37.82 ml/min; Glucose 194 mg/dL (74-106); Potassium 4.1 mmol/L (3.5-5.1); Sodium Level 142 mmol/L (136-145)
[2017-07-28] MEDS: Ipratropium/Albuterol Sulfate 3 ML AMPUL.NEB INHALATION ×4 (06:29→23:00)
[2017-07-28] MEDS: Insulin Lispro 100 UNIT/ML INSULN.PEN SC ×4 (06:32→21:06)
[2017-07-28 06:36] LABS: Bedside Glucose 170 mg/dL (70-110)
--- NOTE | 2017-07-28 06:37 | PN_ITS ---
Subjective: The patient was seen and examined at the bedside this morning. Events from the last 24 hours have been reviewed. The patient is currently afebrile, hemodynamically stable and maintaining appropriate oxygen saturations on 4 L/ min via nasal cannula. Patient did tolerate BiPAP overnight. She reports the presence of a mild cough, but denies shortness of breath. Objective: The patient's most recent lab work, culture data and imaging studies have all been personally reviewed. CT abdomen/pelvis revealed bibasilar pulmonary atelectasis, hepatic steatosis along with multiple chronic appearing compression fractures of the lower thoracic and lumbar spine. Plain film chest x-ray revealed a focal right infrahilar infiltrate. Strep and urine Legionella antigens were both negative. Blood cultures are pending. General: Alert, Cooperative, No apparent distress HEENT: Atraumatic, PERRLA, Normocephalic Oral: No Gingival or Mucosal Lesions/ Ulcerations Neck: Supple, No Nodes, Trachea Midline Lungs: No rhonchi, No wheeze, No rales, Diminished Cardiovascular: Regular rate, Regular Rhythm, Normal S1, Normal S2, No murmurs Abdomen: Bowel Sounds Present, Soft, Non Tender, Obese Extremities: No clubbing, No cyanosis, No edema Skin: No breakdown Musculoskeletal: No Muscle Wasting Lymphatic: No Cervical, Supraclavicular, or Inguinal Adenopathy Neurological: Neuro grossly intact Psych/Mental Status: Flat Affect Vital Signs Temp Pulse Resp BP Pulse Ox 98.0 F 84 18 129/67 H 100 07/28/17 06:00 07/28/17 06:29 07/28/17 06:29 07/28/17 06:00 07/28/17 06:00 Oxygen Flow Rate (L/min) 4 Oxygen Delivery Method Nasal Cannula Weight: 264 lb 15.93 oz Body Mass Index (BMI) 50.8 Intake and Output for Last 24 Hours 07/26/17 07/27/17 07/28/17 23:59 23:59 23:59 Intake Total 992 / 992 1193 / 1193 0 / 0 Output Total 325 / 325 1000 / 1000 250 / 250 Balance 667 / 667 193 / 193 -250 / -250 Labs (Last 48 Hours) 07/26/17 07/26/17 07/26/17 15:10 17:09 18:21 WBC RBC Hgb Hct MCV MCH MCHC RDW RDW Differential Plt Count MPV Immature Gran % (Auto) Neut % (Auto) Lymph % (Auto) [place] % (Auto) Eos % (Auto) Baso % (Auto) Absolute Neuts (auto) Absolute Lymphs (auto) Total Counted Specimen Type Sample Site pH Bicarbonate Actual POC Total CO2 Base Excess O2 Saturation O2 % ABG pCO2 ABG pO2 Jassi Test Respiration Rate O2 Delivery Device EPAP IPAP Blood Gas Notified Whom Blood Gas Notified Time Sodium Potassium Chloride Carbon Dioxide Anion Gap BUN Creatinine Estim Creat Clear Calc Est GFR (MDRD) Af Amer Est GFR (MDRD) Non-Af BUN/Creatinine Ratio Glucose Hemoglobin A1c 7.1 H Lactic Acid 2.4 H Calcium Total Bilirubin AST ALT Alkaline Phosphatase Total Protein Albumin Globulin Albumin/Globulin Ratio MRSA (PCR) POC Glucose 180 H 07/26/17 07/26/17 07/27/17 18:49 21:24 04:05 WBC 5.5 RBC 4.37 Hgb 12.4 Hct 41.1 MCV 94.1 MCH 28.4 MCHC 30.2 L RDW 14.3 RDW Differential 47.1 H Plt Count 120 L MPV 10.6 Immature Gran % (Auto) 0.200 Neut % (Auto) 88.3 H Lymph % (Auto) 9.8 L [place] % (Auto) 1.5 Eos % (Auto) 0.0 Baso % (Auto) 0.2 Absolute Neuts (auto) 4.9 Absolute Lymphs (auto) 0.54 L Total Counted Not Reportable Specimen Type ART Sample Site L Radial pH 7.34 L Bicarbonate Actual 41.3 H POC Total CO2 44 Base Excess 16 H O2 Saturation 94 L O2 % 40 ABG pCO2 76.2 H* ABG pO2 78 Jassi Test POS Respiration Rate 12 O2 Delivery Device Bi / C PAP EPAP 8 IPAP 12 Blood Gas Notified Whom [facility] Blood Gas Notified Time 1845 Sodium Potassium Chloride Carbon Dioxide Anion Gap BUN Creatinine Estim Creat Clear Calc Est GFR (MDRD) Af Amer Est GFR (MDRD) Non-Af BUN/Creatinine Ratio Glucose Hemoglobin A1c Lactic Acid Calcium Total Bilirubin AST ALT Alkaline Phosphatase Total Protein Albumin Globulin Albumin/Globulin Ratio MRSA (PCR) POC Glucose 205 H 07/27/17 07/27/17 07/27/17 04:05 06:04 11:40 WBC RBC Hgb Hct MCV MCH MCHC RDW RDW Differential Plt Count MPV Immature Gran % (Auto) Neut % (Auto) Lymph % (Auto) [place] % (Auto) Eos % (Auto) Baso % (Auto) Absolute Neuts (auto) Absolute Lymphs (auto) Total Counted Specimen Type Sample Site pH Bicarbonate Actual POC Total CO2 Base Excess O2 Saturation O2 % ABG pCO2 ABG pO2 Jassi Test Respiration Rate O2 Delivery Device EPAP IPAP Blood Gas Notified Whom Blood Gas Notified Time Sodium 141 Potassium 4.1 Chloride 99 Carbon Dioxide 35.0 H Anion Gap 7 BUN 13 Creatinine 1.01 Estim Creat Clear Calc 36.70 Est GFR (MDRD) Af Amer 69 Est GFR (MDRD) Non-Af 57 L BUN/Creatinine Ratio 12.9 Glucose 289 H Hemoglobin A1c Lactic Acid Calcium 8.1 L Total Bilirubin 0.50 AST 26 ALT 28 Alkaline Phosphatase 84 Total Protein 6.8 Albumin 2.5 L Globulin 4.3 H Albumin/Globulin Ratio 0.6 L MRSA (PCR) POC Glucose 288 H 325 H 07/27/17 07/27/17 07/27/17 16:00 16:32 21:53 WBC RBC Hgb Hct MCV MCH MCHC RDW RDW Differential Plt Count MPV Immature Gran % (Auto) Neut % (Auto) Lymph % (Auto) [place] % (Auto) Eos % (Auto) Baso % (Auto) Absolute Neuts (auto) Absolute Lymphs (auto) Total Counted Specimen Type Sample Site pH Bicarbonate Actual POC Total CO2 Base Excess O2 Saturation O2 % ABG pCO2 ABG pO2 Jassi Test Respiration Rate O2 Delivery Device EPAP IPAP Blood Gas Notified Whom Blood Gas Notified Time Sodium Potassium Chloride Carbon Dioxide Anion Gap BUN Creatinine Estim Creat Clear Calc Est GFR (MDRD) Af Amer Est GFR (MDRD) Non-Af BUN/Creatinine Ratio Glucose Hemoglobin A1c Lactic Acid Calcium Total Bilirubin AST ALT Alkaline Phosphatase Total Protein Albumin Globulin Albumin/Globulin Ratio MRSA (PCR) Negative POC Glucose 435 H 359 H 07/28/17 07/28/17 07/28/17 04:15 04:15 06:30 WBC 10.8 RBC 4.45 Hgb 12.8 Hct 41.9 MCV 94.2 MCH 28.8 MCHC 30.5 L RDW 14.2 RDW Differential 47.1 H Plt Count 133 L MPV 10.5 Immature Gran % (Auto) 0.200 Neut % (Auto) 77.7 H Lymph % (Auto) 14.8 L Cameron % (Auto) 7.1 Eos % (Auto) 0.1 Baso % (Auto) 0.1 Absolute Neuts (auto) 8.4 H Absolute Lymphs (auto) 1.59 Total Counted Not Reportable Specimen Type Sample Site pH Bicarbonate Actual POC Total CO2 Base Excess O2 Saturation O2 % ABG pCO2 ABG pO2 Jassi Test Respiration Rate O2 Delivery Device EPAP IPAP Blood Gas Notified Whom Blood Gas Notified Time Sodium 142 Potassium 4.1 Chloride 100 Carbon Dioxide 36.0 H Anion Gap 6 BUN 27 H Creatinine 0.98 Estim Creat Clear Calc 37.82 Est GFR (MDRD) Af Amer 72 Est GFR (MDRD) Non-Af 59 L BUN/Creatinine Ratio 27.6 H Glucose 194 H Hemoglobin A1c Lactic Acid Calcium 9.1 Total Bilirubin AST ALT Alkaline Phosphatase Total Protein Albumin Globulin Albumin/Globulin Ratio MRSA (PCR) POC Glucose Pending Microbiology 07/26/17 15:30 Urine, Clean Catch Streptococcus pneumoniae Antigen (M - Final 07/26/17 15:30 Urine, Clean Catch Legionella Antigen - Final Clinical Impression(s) from Imaging Studies Abdomen/Pelvis CT 07/26/17 11:52 IMPRESSION: 1. No definitive acute intra-abdominal process is identified. 2. Bibasilar pulmonary atelectasis is greater on the right, which may reflect splinting greater on the right in the setting of right upper quadrant pain. 3. There is evidence of hepatic steatosis although not severe, and there is no urbano enlargement of the liver. The gallbladder surgically absent. No acute biliary process is evident. Etiology of the patient's discomfort is not apparent on the study. 4. Multiple chronic appearing compression fractures of the lower thoracic and lumbar spine. If spinal pathology is suspected, consider follow-up spinal CT scan or MRI for additional characterization. Electronically Signed: Ridge Dominguez, at 13:16 EDT Tel , Service support , Chest X-Ray 07/26/17 12:25 IMPRESSION: Focal right infrahilar infiltrate and/or atelectasis. Electronically Signed: Jose Montenegro MD at 12:48 EDT Tel [phone], Service support , Medical Necessity - Tobacco Use Smoking Status: Former smoker - Quit ~ 20 years prior, at least 1 ppd. Tobacco Use: Non-smoker Assessment/Plan Active and Suspected Problems Chronic respiratory failure with hypoxia (Acute) Acute respiratory failure with hypoxia and hypercapnia (Acute) COPD exacerbation (Acute) Pneumonia (Acute) RECOMMENDATIONS: 1. Continue BiPAP with naps and nightly 2. Maintain oxygen saturations 88-92%, to prevent paradoxical CO2 retention. 3. Continue to hold sedating medications. 4. Continue scheduled aerosol treatments, along with antibiotics. 5. Continue prednisone 40 mg daily by mouth. 6. Encourage incentive spirometer use and mobilize patient as tolerated. IMPRESSIONS: 1. Acute on chronic hypoxemic and hypercarbic respiratory failure 2/2 presumed COPD with exacerbation due to CAP The patient presented to the hospital with CO2 retention, which appears to be chronic, requiring the initiation of BiPAP support. Her mentation has subsequently improved. She will remain on broad-spectrum antibiotics, pending infectious workup. Scheduled aerosol treatments along with steroids will be continued. 2. Hypercarbic encephalopathy The patient CO2 retention was likely the consequence of her underlying lung disease, in combination with #3 along with the use of multiple sedating medications in her home environment. Her mentation has improved with the use of BiPAP. Sedating medications are currently on hold. Her COPD exacerbation is being addressed as noted above. Recommend continuing BiPAP therapy with naps and nightly as ordered. 3. Obstructive sleep apnea/alveolar hypoventilation secondary to super morbid obesity The patient does endorse a history of SARAH. However, her compliance with use of nocturnal Pap therapy is not known. It is highly recommended that given her CO2 retention, that she be on BiPAP therapy with naps and nightly. She will be at high risk for future CO2 retention with the use of sedating medications, including opiate pain meds. 4. Chronic pain syndrome/diabetes/hypertension/hyperlipidemia/dementia/tobacco dependence in remission/anxiety and depression Complicates care, management, recovery and prognosis. Continue to hold pain medications at the current time. Okay to advance diet from my perspective. Recommend physical therapy evaluation. This note was generated with [employer] software. It may contain incorrect words, spelling, and punctuation that were not noted in checking the note before signing. DISPOSITION: Patient is medically stable for transfer out of the intensive care unit. Code Visit Inpatient E&M: 50612 Subs Hosp L3
[2017-07-28] MEDS: Memantine Hydrochloride 10 MG Tablet PO ×2 (09:14→21:06)
[2017-07-28] MEDS: predniSONE 20 MG Tablet 40 MG PO (09:14)
[2017-07-28] MEDS: Senna/Docusate Sodium 1 Tablet 2 TABLET PO ×2 (09:15→21:06)
[2017-07-28] MEDS: DULoxetine Hcl 60 MG Capsule PO ×2 (09:15→21:06)
[2017-07-28] MEDS: Furosemide 40 MG Tablet PO (09:16)
[2017-07-28] MEDS: Pantoprazole Sodium 20 MG Tablet PO (09:16)
[2017-07-28] MEDS: Enoxaparin 30 MG/0.3 ML Syringe SC (09:16)
[2017-07-28] MEDS: guaiFENesin 1,200 MG Tablet 1200 MG PO ×2 (09:16→21:06)
[2017-07-28] MEDS: CHLORHEXIDINE GLUC 2% CLOTH 1 EACH TOWELETTE TOPICAL (09:31)
[2017-07-28] MEDS: Ceftriaxone 1 GM/50 ML BAG IV (09:31)
[2017-07-28] MEDS: Glucerna Shake 120 ML LIQUID PO ×2 (09:31→21:06)
[2017-07-28 12:00] LABS: Bedside Glucose 322 mg/dL (70-110)
[2017-07-28 16:26] LABS: Bedside Glucose 334 mg/dL (70-110)
--- NOTE | 2017-07-28 19:26 | PN_ITS ---
Patient Problems: Active and Suspected Problems Chronic respiratory failure with hypoxia (Acute) Acute respiratory failure with hypoxia and hypercapnia (Acute) COPD exacerbation (Acute) Pneumonia (Acute) Subjective: She is doing well this morning with NC only. Awake, Alert, oriented. Objective: - Physical Exam General: Awake, alert, oriented. HEENT: Atraumatic, PERRLA Oral: Moist Mucosa Neck: Supple, No JVD Lungs: Diminished Cardiovascular: Regular rate, Regular Rhythm, Normal S1, Normal S2, No murmurs, No Ectopic Activity Abdomen: Bowel Sounds Present, Soft, Non Tender, Non-Distended, No Hepato- splenomegaly, Obese Extremities: No clubbing, No cyanosis, No edema Skin: No rashes, No breakdown Musculoskeletal: No Tenderness to Palpation of Joints or Extremities, No Muscle Wasting Lymphatic: No Cervical, Supraclavicular, or Inguinal Adenopathy Neurological: Cranial nerves II-XII grossly intact, Neuro grossly intact Psych/Mental Status: - Normal affect. - Physical Exam Vital Signs Temp Pulse Resp BP Pulse Ox 98.0 F 91 16 121/58 H 95 07/28/17 16:10 07/28/17 16:40 07/28/17 16:10 07/28/17 16:10 07/28/17 16:10 Oxygen Flow Rate (L/min) 2 Oxygen Delivery Method Nasal Cannula Weight: 264 lb 15.93 oz Body Mass Index (BMI) 50.8 Intake and Output for Last 24 Hours 07/26/17 07/27/17 07/28/17 23:59 23:59 23:59 Intake Total 992 / 992 1193 / 1193 630 / 630 Output Total 325 / 325 1000 / 1000 1500 / 1500 Balance 667 / 667 193 / 193 -870 / -870 Microbiology Past 72 Hours 07/26/17 14:05 Blood Culture - Preliminary Blood Culture (Wb) - Anticubital Left No growth in 48 hours. 07/26/17 15:30 Streptococcus pneumoniae Antigen (M - Final Urine, Clean Catch 07/26/17 15:30 Legionella Antigen - Final Urine, Clean Catch Laboratory Tests Past 24 Hrs 07/28/17 07/28/17 04:15 04:15 WBC 10.8 RBC 4.45 Hgb 12.8 Hct 41.9 MCV 94.2 MCH 28.8 MCHC 30.5 L RDW 14.2 RDW Differential 47.1 H Plt Count 133 L MPV 10.5 Immature Gran % (Auto) 0.200 Neut % (Auto) 77.7 H Lymph % (Auto) 14.8 L [place] % (Auto) 7.1 Eos % (Auto) 0.1 Baso % (Auto) 0.1 Absolute Neuts (auto) 8.4 H Absolute Lymphs (auto) 1.59 Total Counted Not Reportable Sodium 142 Potassium 4.1 Chloride 100 Carbon Dioxide 36.0 H Anion Gap 6 BUN 27 H Creatinine 0.98 Estim Creat Clear Calc 37.82 Est GFR (MDRD) Af Amer 72 Est GFR (MDRD) Non-Af 59 L BUN/Creatinine Ratio 27.6 H Glucose 194 H Calcium 9.1 POC Glucose 07/28/17 07/28/17 07/28/17 16:06 11:47 06:30 POC Glucose 334 H 322 H 170 H 07/27/17 21:53 POC Glucose 359 H Medical Necessity - Tobacco Use Smoking Status: Former smoker - Quit ~ 20 years prior, at least 1 ppd. Tobacco Use: Non-smoker Assessment/Plan Active and Suspected Problems Chronic respiratory failure with hypoxia (Acute) Acute respiratory failure with hypoxia and hypercapnia (Acute) COPD exacerbation (Acute) Pneumonia (Acute) Patient is a 71 years old female, who presents with increasing shortness of breath, admitted on 07/26/17. She presents with respiratory failure with hypoxia and hypercapnia with underling COPD and chronic respiratory failure with home oxygen. She was found to have right infrahilar infiltrate. WBC was normal and she was afebrile. Oxygen saturation was 96% with NC 5 liter. Her baseline is 2.5 liter at home. She was initially admitted to medical floor with BiPAP, but she became very agitated, unable to maintain BiPAP apparatus. She was transferred to ICU. #1 Acute on chronic combined hypoxic and hypercapnic respiratory failure. With underling pneumonia and COPD exacerbation. Started on BiPAP, continue. Bronchodilator: DuoNeb + albuterol MN. Antibiotics: ceftriaxone / azithromycin. Solu-Medrol 40 mg IVP Q8. Pulmonary consultation appreciated. Patient is improving. She is out of ICU on 07/28/17. #2 Pneumonia, bacterial. Antibiotics as above. Legionella / pneumococcus urine Ag negative. Blood culture negative to date. Continue current antibiotics. #3 Confusion with metabolic encephalopathy. Due to infectious process and acute respiratory failure. She has underling dementia. She is doing better today. #4 DM II. Hold oral hypoglycemic agent. Continue sliding scale insulin. #5 Hyperkalemia. Potassium 5.3. K+ supplement on hold. IVF hydration. Monitor BMP. #6 Chronic neck pain. Morphine on hold. Resume when she is more awake. #7 Dementia. Alzheimer type, chronic. #8 SARAH. #9 Morbid obesity. BMI 51.1. #10 Essential hypertension. Blood pressure is adequate. VTE prophylaxis: Lovenox / SCD. GI prophylaxis: PPI po. She is full code. Disposition: Home when stable. Code Visit Inpatient E&M: 50333 Subs Hosp L2
[2017-07-28] MEDS: Pravastatin 40 MG Tablet PO (21:06)
[2017-07-28] MEDS: Donepezil HCl 10 MG Tablet PO (21:06)
[2017-07-28 21:16] LABS: Bedside Glucose 347 mg/dL (70-110)
[2017-07-29] VITALS (14 sets, daily range): BP systolic 135–139; BP diastolic 60–88; PULSE 78–105; RESP 12–22; TEMP 36.6–36.8; O2SAT 91–98
--- NOTE | 2017-07-29 00:28 | NURSING ---
PATIENT REFUSING BIPAP, WORE IT FOR ABOUT AN HOUR. TRY TO EDUCATE PATIENT ON WEARING IT, GET FRUSTRATED AND STILL REFUSING
[2017-07-29] MEDS: oxyCODONE 5 MG Tablet PO (00:54)
--- NOTE | 2017-07-29 00:57 | NURSING ---
WAS ABLE TO GET PATIENT TO PUT BIPAP BACK ON FOR NOW, WILL CONTINUE TO MONITOR.
[2017-07-29] MEDS: Ipratropium/Albuterol Sulfate 3 ML AMPUL.NEB INHALATION ×4 (02:58→15:18)
[2017-07-29 06:55] LABS: Bedside Glucose 194 mg/dL (70-110)
[2017-07-29] MEDS: Insulin Lispro 100 UNIT/ML INSULN.PEN SC ×2 (07:39→11:33)
[2017-07-29] MEDS: predniSONE 20 MG Tablet 40 MG PO (07:40)
--- NOTE | 2017-07-29 08:48 | PCM.PROGNOTE ---
Patient Problems: Active and Suspected Problems Chronic respiratory failure with hypoxia (Acute) Acute respiratory failure with hypoxia and hypercapnia (Acute) COPD exacerbation (Acute) Pneumonia (Acute) Subjective: The patient was seen and examined at the bedside this morning. Events from the last 24 hours have been reviewed. The patient is currently afebrile, hemodynamically stable and maintaining appropriate oxygen saturations on 1 L/min via nasal cannula. The patient reports interval improvement in both her shortness of breath and cough related complaints. She has been tolerant of nocturnal BiPAP utilization. Objective: The patient's most recent lab work, culture data and imaging studies have all been personally reviewed. CT abdomen/pelvis revealed bibasilar pulmonary atelectasis, hepatic steatosis along with multiple chronic appearing compression fractures of the lower thoracic and lumbar spine. Plain film chest x-ray revealed a focal right infrahilar infiltrate. Strep and urine Legionella antigens were both negative. Blood cultures have been unrevealing to date. - Physical Exam General: Alert, Cooperative, No apparent distress HEENT: Atraumatic, PERRLA, Normocephalic Oral: No Gingival or Mucosal Lesions/ Ulcerations Neck: Supple, No Nodes, Trachea Midline Lungs: No rhonchi, No wheeze, No rales, Diminished Cardiovascular: Regular rate, Regular Rhythm, Normal S1, Normal S2, No murmurs Abdomen: Bowel Sounds Present, Soft, Non Tender, Obese Extremities: No clubbing, No cyanosis, No edema Skin: No breakdown Musculoskeletal: No Muscle Wasting Lymphatic: No Cervical, Supraclavicular, or Inguinal Adenopathy Neurological: Neuro grossly intact Psych/Mental Status: Normal Affect, Appropriate Vital Signs Temp Pulse Resp BP Pulse Ox 97.9 F 88 20 H 135/60 H 96 07/29/17 05:00 07/29/17 07:03 07/29/17 07:03 07/29/17 05:00 07/29/17 07:03 Oxygen Flow Rate (L/min) 1 Oxygen Delivery Method Nasal Cannula Weight: 263 lb 0.183 oz Body Mass Index (BMI) 50.8 Intake and Output for Last 24 Hours 07/27/17 07/28/17 07/29/17 23:59 23:59 23:59 Intake Total 1193 / 1193 630 / 630 340 / 340 Output Total 1000 / 1000 1500 / 1500 900 / 900 Balance 193 / 193 -870 / -870 -560 / -560 Microbiology Past 72 Hours 07/26/17 14:05 Blood Culture - Preliminary Blood Culture (Wb) - Anticubital Left No growth in 48 hours. 07/26/17 15:30 Streptococcus pneumoniae Antigen (M - Final Urine, Clean Catch 07/26/17 15:30 Legionella Antigen - Final Urine, Clean Catch POC Glucose 07/29/17 07/28/17 07/28/17 06:49 21:02 16:06 POC Glucose 194 H 347 H 334 H 07/28/17 11:47 POC Glucose 322 H Clinical Impression(s) from Imaging Studies Abdomen/Pelvis CT 07/26/17 11:52 IMPRESSION: 1. No definitive acute intra-abdominal process is identified. 2. Bibasilar pulmonary atelectasis is greater on the right, which may reflect splinting greater on the right in the setting of right upper quadrant pain. 3. There is evidence of hepatic steatosis although not severe, and there is no urbano enlargement of the liver. The gallbladder surgically absent. No acute biliary process is evident. Etiology of the patient's discomfort is not apparent on the study. 4. Multiple chronic appearing compression fractures of the lower thoracic and lumbar spine. If spinal pathology is suspected, consider follow-up spinal CT scan or MRI for additional characterization. Electronically Signed: Ridge Dominguez at 13:16 EDT Tel , Service support , Chest X-Ray 07/26/17 12:25 IMPRESSION: Focal right infrahilar infiltrate and/or atelectasis. Electronically Signed: Jose Montenegro MD at 12:48 EDT Tel [phone], Service support , Medical Necessity - Tobacco Use Smoking Status: Former smoker - Quit ~ 20 years prior, at least 1 ppd. Tobacco Use: Non-smoker Assessment/Plan Active and Suspected Problems Chronic respiratory failure with hypoxia (Acute) Acute respiratory failure with hypoxia and hypercapnia (Acute) COPD exacerbation (Acute) Pneumonia (Acute) RECOMMENDATIONS: 1. Continue BiPAP with naps and nightly 2. Maintain oxygen saturations 88-92%, to prevent paradoxical CO2 retention. 3. Continue to hold sedating medications. 4. Continue scheduled aerosol treatments, along with antibiotics (plan to complete 7 day treatment course) 5. Continue prednisone 40 mg daily by mouth. Recommend taper at discharge. 6. Encourage incentive spirometer use and mobilize patient as tolerated. IMPRESSIONS: 1. Acute on chronic hypoxemic and hypercarbic respiratory failure 2/2 presumed COPD with exacerbation due to CAP The patient presented to the hospital with CO2 retention, which appears to be chronic, requiring the initiation of BiPAP support. Her mentation subsequently improved. She will complete a 7 day treatment course in treatment for community-acquired pneumonia. Scheduled aerosol treatments along with steroids will be continued. Wean supplemental oxygen as tolerated. Encourage incentive spirometer use and mobilize patient as tolerated. 2. Hypercarbic encephalopathy Resolved. The patient CO2 retention was likely the consequence of her underlying lung disease, in combination with #3 along with the use of multiple sedating medications in her home environment. Her mentation has improved with the use of BiPAP. Sedating medications are currently on hold. Her COPD exacerbation is being addressed as noted above. Recommend continuing BiPAP therapy with naps and nightly as ordered. 3. Obstructive sleep apnea/alveolar hypoventilation secondary to super morbid obesity The patient does endorse a history of SARAH. However, her compliance with use of nocturnal Pap therapy is not known. It is highly recommended that given her CO2 retention, that she be on BiPAP therapy with naps and nightly. She will be at high risk for future CO2 retention with the use of sedating medications, including opiate pain medications. 4. Chronic pain syndrome/diabetes/hypertension/hyperlipidemia/dementia/tobacco dependence in remission/anxiety and depression Complicates care, management, recovery and prognosis. Continue to hold pain medications at the current time. Continue work with physical therapy. This note was generated with [employer] dictation software. It may contain incorrect words, spelling, and punctuation that were not noted in checking the note before signing. Code Visit Inpatient E&M: 77803 Subs Hosp L2
--- NOTE | 2017-07-29 08:53 | PN_ITS ---
Patient Problems: Active and Suspected Problems Chronic respiratory failure with hypoxia (Acute) Acute respiratory failure with hypoxia and hypercapnia (Acute) COPD exacerbation (Acute) Pneumonia (Acute) Subjective: The patient was seen and examined at the bedside this morning. Events from the last 24 hours have been reviewed. The patient is currently afebrile, hemodynamically stable and maintaining appropriate oxygen saturations on 1 L/ min via nasal cannula. The patient reports interval improvement in both her shortness of breath and cough related complaints. She has been tolerant of nocturnal BiPAP utilization. Objective: The patient's most recent lab work, culture data and imaging studies have all been personally reviewed. CT abdomen/pelvis revealed bibasilar pulmonary atelectasis, hepatic steatosis along with multiple chronic appearing compression fractures of the lower thoracic and lumbar spine. Plain film chest x-ray revealed a focal right infrahilar infiltrate. Strep and urine Legionella antigens were both negative. Blood cultures have been unrevealing to date. - Physical Exam General: Alert, Cooperative, No apparent distress HEENT: Atraumatic, PERRLA, Normocephalic Oral: No Gingival or Mucosal Lesions/ Ulcerations Neck: Supple, No Nodes, Trachea Midline Lungs: No rhonchi, No wheeze, No rales, Diminished Cardiovascular: Regular rate, Regular Rhythm, Normal S1, Normal S2, No murmurs Abdomen: Bowel Sounds Present, Soft, Non Tender, Obese Extremities: No clubbing, No cyanosis, No edema Skin: No breakdown Musculoskeletal: No Muscle Wasting Lymphatic: No Cervical, Supraclavicular, or Inguinal Adenopathy Neurological: Neuro grossly intact Psych/Mental Status: Normal Affect, Appropriate Vital Signs Temp Pulse Resp BP Pulse Ox 97.9 F 88 20 H 135/60 H 96 07/29/17 05:00 07/29/17 07:03 07/29/17 07:03 07/29/17 05:00 07/29/17 07:03 Oxygen Flow Rate (L/min) 1 Oxygen Delivery Method Nasal Cannula Weight: 263 lb 0.183 oz Body Mass Index (BMI) 50.8 Intake and Output for Last 24 Hours 07/27/17 07/28/17 07/29/17 23:59 23:59 23:59 Intake Total 1193 / 1193 630 / 630 340 / 340 Output Total 1000 / 1000 1500 / 1500 900 / 900 Balance 193 / 193 -870 / -870 -560 / -560 Microbiology Past 72 Hours 07/26/17 14:05 Blood Culture - Preliminary Blood Culture (Wb) - Anticubital Left No growth in 48 hours. 07/26/17 15:30 Streptococcus pneumoniae Antigen (M - Final Urine, Clean Catch 07/26/17 15:30 Legionella Antigen - Final Urine, Clean Catch POC Glucose 07/29/17 07/28/17 07/28/17 06:49 21:02 16:06 POC Glucose 194 H 347 H 334 H 07/28/17 11:47 POC Glucose 322 H Clinical Impression(s) from Imaging Studies Abdomen/Pelvis CT 07/26/17 11:52 IMPRESSION: 1. No definitive acute intra-abdominal process is identified. 2. Bibasilar pulmonary atelectasis is greater on the right, which may reflect splinting greater on the right in the setting of right upper quadrant pain. 3. There is evidence of hepatic steatosis although not severe, and there is no urbano enlargement of the liver. The gallbladder surgically absent. No acute biliary process is evident. Etiology of the patient's discomfort is not apparent on the study. 4. Multiple chronic appearing compression fractures of the lower thoracic and lumbar spine. If spinal pathology is suspected, consider follow-up spinal CT scan or MRI for additional characterization. Electronically Signed: Ridge Dominguez at 13:16 EDT Tel , Service support , Chest X-Ray 07/26/17 12:25 IMPRESSION: Focal right infrahilar infiltrate and/or atelectasis. Electronically Signed: Jose Montenegro MD at 12:48 EDT Tel [phone], Service support , Medical Necessity - Tobacco Use Smoking Status: Former smoker - Quit ~ 20 years prior, at least 1 ppd. Tobacco Use: Non-smoker Assessment/Plan Active and Suspected Problems Chronic respiratory failure with hypoxia (Acute) Acute respiratory failure with hypoxia and hypercapnia (Acute) COPD exacerbation (Acute) Pneumonia (Acute) RECOMMENDATIONS: 1. Continue BiPAP with naps and nightly 2. Maintain oxygen saturations 88-92%, to prevent paradoxical CO2 retention. 3. Continue to hold sedating medications. 4. Continue scheduled aerosol treatments, along with antibiotics (plan to complete 7 day treatment course) 5. Continue prednisone 40 mg daily by mouth. Recommend taper at discharge. 6. Encourage incentive spirometer use and mobilize patient as tolerated. IMPRESSIONS: 1. Acute on chronic hypoxemic and hypercarbic respiratory failure 2/2 presumed COPD with exacerbation due to CAP The patient presented to the hospital with CO2 retention, which appears to be chronic, requiring the initiation of BiPAP support. Her mentation subsequently improved. She will complete a 7 day treatment course in treatment for community -acquired pneumonia. Scheduled aerosol treatments along with steroids will be continued. Wean supplemental oxygen as tolerated. Encourage incentive spirometer use and mobilize patient as tolerated. 2. Hypercarbic encephalopathy Resolved. The patient CO2 retention was likely the consequence of her underlying lung disease, in combination with #3 along with the use of multiple sedating medications in her home environment. Her mentation has improved with the use of BiPAP. Sedating medications are currently on hold. Her COPD exacerbation is being addressed as noted above. Recommend continuing BiPAP therapy with naps and nightly as ordered. 3. Obstructive sleep apnea/alveolar hypoventilation secondary to super morbid obesity The patient does endorse a history of SARAH. However, her compliance with use of nocturnal Pap therapy is not known. It is highly recommended that given her CO2 retention, that she be on BiPAP therapy with naps and nightly. She will be at high risk for future CO2 retention with the use of sedating medications, including opiate pain medications. 4. Chronic pain syndrome/diabetes/hypertension/hyperlipidemia/dementia/tobacco dependence in remission/anxiety and depression Complicates care, management, recovery and prognosis. Continue to hold pain medications at the current time. Continue work with physical therapy. This note was generated with [employer] dictation software. It may contain incorrect words, spelling, and punctuation that were not noted in checking the note before signing. Code Visit Inpatient E&M: 57704 Subs Hosp L2
[2017-07-29] MEDS: Ceftriaxone 1 GM/50 ML BAG IV (10:04)
[2017-07-29] MEDS: 0.9% NaCl Peripheral Flush Adult/Peds IV (10:05)
[2017-07-29] MEDS: Enoxaparin 30 MG/0.3 ML Syringe SC (10:17)
[2017-07-29] MEDS: Pantoprazole Sodium 20 MG Tablet PO (10:17)
[2017-07-29] MEDS: DULoxetine Hcl 60 MG Capsule PO (10:18)
[2017-07-29] MEDS: Memantine Hydrochloride 10 MG Tablet PO (10:18)
[2017-07-29] MEDS: Furosemide 40 MG Tablet PO (10:18)
[2017-07-29] MEDS: guaiFENesin 1,200 MG Tablet 1200 MG PO (10:18)
[2017-07-29 11:47] LABS: Bedside Glucose 354 mg/dL (70-110)
--- NOTE | 2017-07-29 16:25 | PCM.DC ---
- Discharge Diagnoses Current Active Problems: Current Active and Chronic Problems Chronic neck pain (Chronic) Morbid obesity (Chronic) HTN (hypertension) (Chronic) HLD (hyperlipidemia) (Chronic) COPD (chronic obstructive pulmonary disease) (Chronic) SARAH (obstructive sleep apnea) (Chronic) Diabetes mellitus, type II (Chronic) Anxiety and depression (Chronic) Chronic respiratory failure with hypoxia (Acute) Acute respiratory failure with hypoxia and hypercapnia (Acute) COPD exacerbation (Acute) Pneumonia (Acute) You will use the following diet at home:: Calorie/Carbohydrate Controlled (specify 1200, 1400, etc) Your food should be the consistency of: Regular Discharge Activity: Return to Normal Activity - as tolerated. Allergies/Adverse Reactions: Allergies No Known Allergies Allergy (Verified 07/26/17 11:29) Medications to take at Discharge Duloxetine HCl 60 mg PO BID 03/28/16 Furosemide 40 mg PO DAILY 03/28/16 Meclizine HCl [Antivert] 25 mg PO BID 03/28/16 Memantine HCl/Donepezil HCl [Namzaric 28 mg-10 mg Capsule] 1 each PO DAILY 03/28/16 Morphine Sulfate [Morphine Sulfate ER] 15 mg PO BID 03/28/16 Multivitamin [Multiple Vitamins] 1 each PO DAILY 03/28/16 Trazodone HCl 100 mg PO QHS 03/28/16 Colchicine 0.6 mg PO DAILY 07/26/17 Metformin HCl [Glucophage] 500 mg PO BID 07/26/17 Potassium Chloride [K-Dur] 20 meq PO BID 07/26/17 Pravastatin Sodium 40 mg PO QHS 07/26/17 Cefdinir 600 mg PO DAILY #10 cap 07/29/17 Prednisone 10 mg PO DAILY #30 tab 07/29/17 The following prescriptions were given: Cefdinir 600 mg PO DAILY #10 cap Prednisone 10 mg PO DAILY #30 tab Primary Care Physician: Stanley Page Chi, MD [Primary Care Provider] - Please follow up with your Primary Care Physician in: 5 to 7 days. Please Follow Up With: Subhash Flores DO When: in 2 to 3 weeks
--- NOTE | 2017-07-29 16:28 | DCINST_ITS ---
- Discharge Diagnoses Current Active Problems: Current Active and Chronic Problems Chronic neck pain (Chronic) Morbid obesity (Chronic) HTN (hypertension) (Chronic) HLD (hyperlipidemia) (Chronic) COPD (chronic obstructive pulmonary disease) (Chronic) SARAH (obstructive sleep apnea) (Chronic) Diabetes mellitus, type II (Chronic) Anxiety and depression (Chronic) Chronic respiratory failure with hypoxia (Acute) Acute respiratory failure with hypoxia and hypercapnia (Acute) COPD exacerbation (Acute) Pneumonia (Acute) You will use the following diet at home:: Calorie/Carbohydrate Controlled ( specify 1200, 1400, etc) Your food should be the consistency of: Regular Discharge Activity: Return to Normal Activity - as tolerated. Allergies/Adverse Reactions: Allergies No Known Allergies Allergy (Verified 07/26/17 11:29) Medications to take at Discharge Duloxetine HCl 60 mg PO BID 03/28/16 Furosemide 40 mg PO DAILY 03/28/16 Meclizine HCl [Antivert] 25 mg PO BID 03/28/16 Memantine HCl/Donepezil HCl [Namzaric 28 mg-10 mg Capsule] 1 each PO DAILY 03/28 Morphine Sulfate [Morphine Sulfate ER] 15 mg PO BID 03/28/16 Multivitamin [Multiple Vitamins] 1 each PO DAILY 03/28/16 Trazodone HCl 100 mg PO QHS 03/28/16 Colchicine 0.6 mg PO DAILY 07/26/17 Metformin HCl [Glucophage] 500 mg PO BID 07/26/17 Potassium Chloride [K-Dur] 20 meq PO BID 07/26/17 Pravastatin Sodium 40 mg PO QHS 07/26/17 Cefdinir 600 mg PO DAILY #10 cap 07/29/17 Prednisone 10 mg PO DAILY #30 tab 07/29/17 The following prescriptions were given: Cefdinir 600 mg PO DAILY #10 cap Prednisone 10 mg PO DAILY #30 tab Primary Care Physician: Stanley Page Chi, MD [Primary Care Provider] - Please follow up with your Primary Care Physician in: 5 to 7 days. Please Follow Up With: Subhash Flores DO When: in 2 to 3 weeks
--- NOTE | 2017-07-29 16:28 | PCM.DC.SUM ---
Discharge Date and Diagnosis - Problem List Patient Problems: Active and Suspected Problems Chronic respiratory failure with hypoxia (Acute) Acute respiratory failure with hypoxia and hypercapnia (Acute) COPD exacerbation (Acute) Pneumonia (Acute) Date of Admission: 07/26/17 Date of Discharge: 07/29/17 - Primary Discharge Diagnosis Active and Suspected Problems Chronic respiratory failure with hypoxia (Acute) Acute respiratory failure with hypoxia and hypercapnia (Acute) COPD exacerbation (Acute) Pneumonia (Acute) - Secondary Discharge Diagnosis Chronic Problems Chronic neck pain (Chronic) Morbid obesity (Chronic) HTN (hypertension) (Chronic) HLD (hyperlipidemia) (Chronic) COPD (chronic obstructive pulmonary disease) (Chronic) SARAH (obstructive sleep apnea) (Chronic) Diabetes mellitus, type II (Chronic) Anxiety and depression (Chronic) Hospital Course and Treatment Imaging Results: Diagnostic Data Abdomen/Pelvis CT 07/26/17 11:52 IMPRESSION: 1. No definitive acute intra-abdominal process is identified. 2. Bibasilar pulmonary atelectasis is greater on the right, which may reflect splinting greater on the right in the setting of right upper quadrant pain. 3. There is evidence of hepatic steatosis although not severe, and there is no urbano enlargement of the liver. The gallbladder surgically absent. No acute biliary process is evident. Etiology of the patient's discomfort is not apparent on the study. 4. Multiple chronic appearing compression fractures of the lower thoracic and lumbar spine. If spinal pathology is suspected, consider follow-up spinal CT scan or MRI for additional characterization. Electronically Signed: Ridge Dominguez at 13:16 EDT Tel , Service support , Chest X-Ray 07/26/17 12:25 IMPRESSION: Focal right infrahilar infiltrate and/or atelectasis. Electronically Signed: Jose Montenegro MD at 12:48 EDT Tel [phone], Service support , [facility]UM [facility]ENENS: Dr. Flores, critical care / pulmonary. Operations: None Procedures: None Summary of Care Provided: Patient is a 71 years old female, who presents with increasing shortness of breath, admitted on 07/26/17. She presents with respiratory failure with hypoxia and hypercapnia with underling COPD and chronic respiratory failure with home oxygen. She was found to have right infrahilar infiltrate. WBC was normal and she was afebrile. Oxygen saturation was 96% with NC 5 liter. Her baseline is 2.5 liter at home. She was initially admitted to medical floor with BiPAP, but she became very agitated, unable to maintain BiPAP apparatus. She was transferred to ICU. #1 Acute on chronic combined hypoxic and hypercapnic respiratory failure. With underling pneumonia and COPD exacerbation. Started on BiPAP, continue. Bronchodilator: DuoNeb + albuterol MN. Antibiotics: ceftriaxone / azithromycin. Solu-Medrol 40 mg IVP Q8. Pulmonary consultation appreciated. Patient is improving. She is out of ICU on 07/28/17. She is doing well. OK to discharge with prednisone tapering dose, 40 mg po qd x 3d, 30 mg po qd x 3d, 20 mg po qd x 3d, then 10 mg po qd for 3d. #2 Pneumonia, bacterial. Antibiotics as above. Legionella / pneumococcus urine Ag negative. Blood culture negative to date. Continue abx for 7 days total. Discharge with Cefdinir 600 mg po qd for 5 more dahs. #3 Confusion with metabolic encephalopathy. Due to infectious process and acute respiratory failure. She has underling dementia. She is doing better today. #4 DM II. Hold oral hypoglycemic agent. Continue sliding scale insulin. #5 Hyperkalemia. Potassium 5.3. K+ supplement on hold. IVF hydration. Monitor BMP. #6 Chronic neck pain. Morphine on hold. Resume when she is more awake. #7 Dementia. Alzheimer type, chronic. #8 SARAH. #9 Morbid obesity. BMI 51.1. #10 Essential hypertension. Blood pressure is adequate. VTE prophylaxis: Lovenox / SCD. GI prophylaxis: PPI po. She is full code. Disposition: Home with home care. Discharge Diet: - - Cardiac Discharge Activity: Return to Normal Activity - as tolerated. Home Medications: Medications to take at Discharge Duloxetine HCl 60 mg PO BID 03/28/16 Furosemide 40 mg PO DAILY 03/28/16 Meclizine HCl [Antivert] 25 mg PO BID 03/28/16 Memantine HCl/Donepezil HCl [Namzaric 28 mg-10 mg Capsule] 1 each PO DAILY 03/28/16 Morphine Sulfate [Morphine Sulfate ER] 15 mg PO BID 03/28/16 Multivitamin [Multiple Vitamins] 1 each PO DAILY 03/28/16 Trazodone HCl 100 mg PO QHS 03/28/16 Colchicine 0.6 mg PO DAILY 07/26/17 Metformin HCl [Glucophage] 500 mg PO BID 07/26/17 Potassium Chloride [K-Dur] 20 meq PO BID 07/26/17 Pravastatin Sodium 40 mg PO QHS 07/26/17 Cefdinir 600 mg PO DAILY #10 cap 07/29/17 Prednisone 10 mg PO DAILY #30 tab 07/29/17 Following Prescrptions Were Given to Patient: Cefdinir 600 mg PO DAILY #10 cap Prednisone 10 mg PO DAILY #30 tab Primary Care Physician: Stanley Page Chi, MD [Primary Care Provider] - Please follow up with your Primary Care Physician in: 5 to 7 days. Please Follow Up With: Subhash Flores DO When: in 2 to 3 weeks Disposition: Home with Home Health Patient Condition:: Good Medical Necessity - Tobacco Use Smoking Status: Former smoker - Quit ~ 20 years prior, at least 1 ppd. Tobacco Use: Non-smoker Meaningful Use Info Meaningful Use Diagnoses (Choose all that apply): None applicable Code Visit Inpatient E&M: 93150 Disch Hosp
--- NOTE | 2017-07-29 16:32 | DS.PCM_ITS ---
Discharge Date and Diagnosis - Problem List Patient Problems: Active and Suspected Problems Chronic respiratory failure with hypoxia (Acute) Acute respiratory failure with hypoxia and hypercapnia (Acute) COPD exacerbation (Acute) Pneumonia (Acute) Date of Admission: 07/26/17 Date of Discharge: 07/29/17 - Primary Discharge Diagnosis Active and Suspected Problems Chronic respiratory failure with hypoxia (Acute) Acute respiratory failure with hypoxia and hypercapnia (Acute) COPD exacerbation (Acute) Pneumonia (Acute) - Secondary Discharge Diagnosis Chronic Problems Chronic neck pain (Chronic) Morbid obesity (Chronic) HTN (hypertension) (Chronic) HLD (hyperlipidemia) (Chronic) COPD (chronic obstructive pulmonary disease) (Chronic) SARAH (obstructive sleep apnea) (Chronic) Diabetes mellitus, type II (Chronic) Anxiety and depression (Chronic) Hospital Course and Treatment Imaging Results: Diagnostic Data Abdomen/Pelvis CT 07/26/17 11:52 IMPRESSION: 1. No definitive acute intra-abdominal process is identified. 2. Bibasilar pulmonary atelectasis is greater on the right, which may reflect splinting greater on the right in the setting of right upper quadrant pain. 3. There is evidence of hepatic steatosis although not severe, and there is no urbano enlargement of the liver. The gallbladder surgically absent. No acute biliary process is evident. Etiology of the patient's discomfort is not apparent on the study. 4. Multiple chronic appearing compression fractures of the lower thoracic and lumbar spine. If spinal pathology is suspected, consider follow-up spinal CT scan or MRI for additional characterization. Electronically Signed: Ridge Dominguez at 13:16 EDT Tel , Service support , Chest X-Ray 07/26/17 12:25 IMPRESSION: Focal right infrahilar infiltrate and/or atelectasis. Electronically Signed: Jose Montenegro MD at 12:48 EDT Tel [phone], Service support , JAPANESE TUTOR: Dr. Flores, critical care / pulmonary. Operations: None Procedures: None Summary of Care Provided: Patient is a 71 years old female, who presents with increasing shortness of breath, admitted on 07/26/17. She presents with respiratory failure with hypoxia and hypercapnia with underling COPD and chronic respiratory failure with home oxygen. She was found to have right infrahilar infiltrate. WBC was normal and she was afebrile. Oxygen saturation was 96% with NC 5 liter. Her baseline is 2.5 liter at home. She was initially admitted to medical floor with BiPAP, but she became very agitated, unable to maintain BiPAP apparatus. She was transferred to ICU. #1 Acute on chronic combined hypoxic and hypercapnic respiratory failure. With underling pneumonia and COPD exacerbation. Started on BiPAP, continue. Bronchodilator: DuoNeb + albuterol MN. Antibiotics: ceftriaxone / azithromycin. Solu-Medrol 40 mg IVP Q8. Pulmonary consultation appreciated. Patient is improving. She is out of ICU on 07/28/17. She is doing well. OK to discharge with prednisone tapering dose, 40 mg po qd x 3d, 30 mg po qd x 3d, 20 mg po qd x 3d, then 10 mg po qd for 3d. #2 Pneumonia, bacterial. Antibiotics as above. Legionella / pneumococcus urine Ag negative. Blood culture negative to date. Continue abx for 7 days total. Discharge with Cefdinir 600 mg po qd for 5 more dahs. #3 Confusion with metabolic encephalopathy. Due to infectious process and acute respiratory failure. She has underling dementia. She is doing better today. #4 DM II. Hold oral hypoglycemic agent. Continue sliding scale insulin. #5 Hyperkalemia. Potassium 5.3. K+ supplement on hold. IVF hydration. Monitor BMP. #6 Chronic neck pain. Morphine on hold. Resume when she is more awake. #7 Dementia. Alzheimer type, chronic. #8 SARAH. #9 Morbid obesity. BMI 51.1. #10 Essential hypertension. Blood pressure is adequate. VTE prophylaxis: Lovenox / SCD. GI prophylaxis: PPI po. She is full code. Disposition: Home with home care. Discharge Diet: - - Cardiac Discharge Activity: Return to Normal Activity - as tolerated. Home Medications: Medications to take at Discharge Duloxetine HCl 60 mg PO BID 03/28/16 Furosemide 40 mg PO DAILY 03/28/16 Meclizine HCl [Antivert] 25 mg PO BID 03/28/16 Memantine HCl/Donepezil HCl [Namzaric 28 mg-10 mg Capsule] 1 each PO DAILY 03/28 Morphine Sulfate [Morphine Sulfate ER] 15 mg PO BID 03/28/16 Multivitamin [Multiple Vitamins] 1 each PO DAILY 03/28/16 Trazodone HCl 100 mg PO QHS 03/28/16 Colchicine 0.6 mg PO DAILY 07/26/17 Metformin HCl [Glucophage] 500 mg PO BID 07/26/17 Potassium Chloride [K-Dur] 20 meq PO BID 07/26/17 Pravastatin Sodium 40 mg PO QHS 07/26/17 Cefdinir 600 mg PO DAILY #10 cap 07/29/17 Prednisone 10 mg PO DAILY #30 tab 07/29/17 Following Prescrptions Were Given to Patient: Cefdinir 600 mg PO DAILY #10 cap Prednisone 10 mg PO DAILY #30 tab Primary Care Physician: Stanley Page Chi, MD [Primary Care Provider] - Please follow up with your Primary Care Physician in: 5 to 7 days. Please Follow Up With: Subhash Flores DO When: in 2 to 3 weeks Disposition: Home with Home Health Patient Condition:: Good Medical Necessity - Tobacco Use Smoking Status: Former smoker - Quit ~ 20 years prior, at least 1 ppd. Tobacco Use: Non-smoker Meaningful Use Info Meaningful Use Diagnoses (Choose all that apply): None applicable Code Visit Inpatient E&M: 93262 Disch Hosp
== END 2017-07-29 17:50 | disposition home health service (06) | DRG 193 ==
LOC: ED 13:34 → MS3 14:39 → ICU 17:30 → PCU 07-28 15:56
PROVIDERS: Internal Medicine Critical Care Medicine; Admitting Provider Family Medicine; Emergency Provider Emergency Medicine; Family Provider Family Medicine Geriatric Medicine; PCP Family Medicine Geriatric Medicine; Visit Provider Hospitalist
DX: J15.9 Unspecified bacterial pneumonia (principal); J96.21 Acute and chronic respiratory failure with hypoxia; J96.22 Acute and chronic respiratory failure with hypercapnia; G93.41 Metabolic encephalopathy; J44.0 Chronic obstructive pulmonary disease with (acute) lower respiratory infection; J44.1 Chronic obstructive pulmonary disease with (acute) exacerbation; Z68.43 Body mass index [BMI] 50.0-59.9, adult; E87.2 Acidosis; E66.2 Morbid (severe) obesity with alveolar hypoventilation; E87.5 Hyperkalemia; G30.9 Alzheimer's disease, unspecified; F02.80 Dementia in other diseases classified elsewhere, unspecified severity, without behavioral disturbance, psychotic disturbance, mood disturbance, and anxiety; E11.9 Type 2 diabetes mellitus without complications; I10 Essential (primary) hypertension; E78.5 Hyperlipidemia, unspecified; M54.2 Cervicalgia; G89.4 Chronic pain syndrome; F32.9 Major depressive disorder, single episode, unspecified; F41.9 Anxiety disorder, unspecified; Z96.653 Presence of artificial knee joint, bilateral; Z78.1 Physical restraint status; Z99.81 Dependence on supplemental oxygen; Z79.84 Long term (current) use of oral hypoglycemic drugs; Z79.899 Other long term (current) drug therapy; Z87.891 Personal history of nicotine dependence
CPT/HCPCS: 36600; 71045; 74176; 80048; 80053; 82803; 82962; 83036; 83605; 83690; 83735; 83880; 84484; 85025; 85610; 87040; 87449; 87641; 93005; 94002; 94003; 94640; 97110; 97116; 97162; 97165; 97530; 97535; 97802; 99285; J7030; J7040; A4216; J2405

== ENCOUNTER 2017-10-09 12:12 | Emergency (ER) | payer MEDICARE, SELFPAY ==
[2017-10-09 12:14] VITALS: BP 123/91; PULSE 99; RESP 22; TEMP 35.9; O2SAT 87; BMI 50.5
[2017-10-09 12:30] VITALS: BP 103/56; PULSE 97; RESP 17; O2SAT 87
--- NOTE | 2017-10-09 12:42 | CT_ITS ---
STUDY: CT ABDOMEN AND PELVIS WITHOUT CONTRAST REASON FOR EXAM: Female, 72 years old. Lower abdominal pain. History of cholecystectomy, appendectomy, hysterectomy. RADIATION DOSAGE (If Supplied By Facility): CTDIvol = ( 24.07 ) mGy, DLP = ( 1244.76 ) mGycm TECHNIQUE: Transaxial images were obtained from the dome of the diaphragm to the symphysis pubis without oral contrast, and without intravenous contrast. Sagittal and coronal images were reconstructed. Individualized dose optimization techniques were used for this CT. COMPARISON: CT abdomen and pelvis 07/26/2017 FINDINGS: Body wall soft tissues: Healed ventral midline abdominal wall incision. Osseous structures: Scoliosis, osteopenia, kyphoplasty T12, chronic-appearing wedge compression deformity superior endplate L3. Stable compared to recent prior imaging. Mild symmetric endplate compression deformity of L5 also stable. Multilevel lumbar spondylosis. Inferior chest: Lung bases are clear. The distal esophagus is normal. Cardiac base is normal in size without effusion. Coronary calcifications are present. Hepatobiliary: Hepatic steatosis without significant hepatomegaly, greatest craniocaudal dimension of the liver approximately 18 cm. Very minimally nodular contour the liver. Hypertrophy of the caudate lobe of the liver. Potentially reflecting cirrhosis but not entirely convincing. Cholecystectomy with normal biliary tree. Pancreas: Moderate pancreatic atrophy. Spleen: Borderline splenomegaly, craniocaudal 13.2 cm. Adrenal glands: Normal. Urogenital: Normal kidneys, collecting systems, ureters, urinary bladder. Hysterectomy. Ovaries not visible. No adnexal mass or cyst. Pelvic floor and sidewalls and retroperitoneum: No mass or adenopathy. Vasculature: No acute process. Stomach: No acute process. Small bowel and mesentery: No acute process. Large bowel: No acute process. Free fluid or free air: None. CT/Abdomen/Pelvis without Cont IMPRESSION: No definitive acute intra-abdominal process is evident. Electronically Signed: Ridge Dominguez, at 13:46 EDT Tel , Service support ,
--- NOTE | 2017-10-09 12:50 | RAD_ITS ---
STUDY: X-RAY CHEST REASON FOR EXAM: Female, 72 years old. Chest pain, cough, dyspnea. TECHNIQUE: Portable upright AP chest COMPARISON: 07/26/2017. FINDINGS: No significant cardiac Madeley. Normal mediastinal silhouette, radha and pleural margins. Low inspiratory volume with consequent compressive hypoventilatory changes of the interstitium. Accounting for this, no infiltrate is suspected. No significant vascular congestion. There is no effusion or pneumothorax. RAD/Chest 1 View (Portable) IMPRESSION: Low inspiratory effort. No acute cardiac pulmonary process is otherwise evident. Electronically Signed: Ridge Dominguez, at 13:31 EDT Tel , Service support ,
[2017-10-09 13:19] LABS: Absolute Lymphocyte Count 1.72 X10^3/ul (0.83-4.51); Absolute Neutrophil Count 5.5 X10^3/uL (2.0-7.7); Basophil# 0.01 X10^3/uL; Basophil% 0.1 % (0-1); Eosinophil# 0.07 X10^3/uL; Eosinophils% 0.9 % (0-5); Hematocrit 42.1 % (37-47); Lymphocyte # 1.72 X10^3/ul (4.0); Lymphocyte % 21.7 % (19-41); Mean Corp Hgb Conc 30.9 g/gl (32-36); Mean Corpuscular Hgb 28.7 pg (27.0-32.0); Mean Corpuscular Volume 92.9 fL (81-99); Mean Platelet Vol. 10.2 fl (6.2-12.0); Monocyte# 0.63 X10^3/uL; Neutrophil # 5.48 X10^3/uL (2.7-7.7); Neutrophil % 69.2 % (47-70); POSITIVE COUNT NO; POSITIVE DIFFERENTIAL NO; POSITIVE MORPHOLOGY NO; Platelet Count 131 K/mm3 (150-450); RBC Distribution Width CV 14.9 % (11.6-14.6); RBC Distribution Width SD 50.5 fl (35.1-43.9); Red Blood Count 4.53 M/mm3 (4.2-5.4); White Blood Count 7.9 K/mm3 (4.4-11.0)
[2017-10-09 13:36] LABS: Anion Gap 2 (5-15); BUN 16 mg/dL (7-18); BUN/Creat Ratio 14.3 RATIO (10-20); Calcium,Total 9.1 mg/dL (8.5-10.1); Chloride 99 mmol/L (98-107); Creatinine, Serum 1.12 mg/dL (0.55-1.02); EST Glomerular Filtration Rate 51 mL/min (>60); Est Glom Filt Rate - Afr Amer 62 mL/min (>60); Estimated Creatinine Clearance 81.28 ml/min; Glucose 219 mg/dL (74-106); Potassium 4.1 mmol/L (3.5-5.1); Sodium Level 138 mmol/L (136-145)
[2017-10-09] MEDS: Morphine 4 MG/ML Syringe IV (14:35)
[2017-10-09 14:36] VITALS: BP 132/52; PULSE 91; RESP 18; O2SAT 97
[2017-10-09] MEDS: Ondansetron 4 MG/2 ML Vial IV (14:36)
[2017-10-09 15:08] LABS: Bacteria 0 SEEN /hpf (None Seen); Mucous, Urine 0 SEEN /hpf (<or=2+); Red Blood Cells-Urine 0 SEEN /hpf (0-5)
[2017-10-09 15:10] LABS: Color, Urine Yellow (Yellow); Glucose, Dipstick Normal (Normal); Ketone-Dipstick Negative (Negative); Leukocyte Esterase-Dipstick 25 /ul (Negative); Nitrite-Dipstick Negative (Negative); Occult Blood-Urine Negative /ul (Negative); Protein-Dipstick 15 mg/dl (Negative); Urine Bilirubin Dipstick Negative (Negative); Urine Clarity Sl. Cloudy (Clear); Urine Urobilinogen Normal (Normal)
[2017-10-09 15:23] LABS: Squamous Epithelial Cells - UA 0-5 SEEN /hpf (5-10); White Blood Cells 0-5 SEEN /hpf (0-5)
[2017-10-09 16:52] VITALS: BP 100/54; PULSE 94; RESP 16; O2SAT 95
--- NOTE | 2017-10-09 17:16 | ED.VISSUMM ---
- ER Visit Summary Date of Service: 10/09/17 Chief Complaint: Pain all over History of Present Illness: The patient is a 72 F with pain all over that started today. It came on gradually. She complains of pain in her head, chest, back, abdomen, arms and legs. She denies any injury. She does have chronic back pain and takes morphine and hydrocodone at home. She has been taking that with no relief. She denies any other symptoms like fever, nausea, vomiting, shortness of breath. Physical Examination: Vital signs are unremarkable. Patient was triaged as 87% on room air. She was sleeping at the time. Head and neck atraumatic. HEENT exam unremarkable. Heart regular. Lungs clear. Abdomen diffusely tender to palpation. Back is diffusely tender to palpation with light touch. Skin appears normal. No focal or lateralizing neurologic abnormalities. Test Results: EKG showed sinus rhythm at a rate of 98. Left anterior fascicular block. No acute changes. Platelets 131, otherwise CBC normal. CO2 37, glucose 219, creatinine 1.12. Urinalysis unremarkable. Troponin normal. Chest x-ray normal. CT abdomen pelvis normal. Emergency Department Course and Treatment: Patient presents with nonspecific and diffuse pain. She was triaged as hypoxic. I evaluated her several times in the room. She had a normal pulse ox on room air during my evaluations. She was awake. Workup is unremarkable. Vitals are otherwise unremarkable. Nothing to explain diffuse pain over her whole body. Some of this may be from tolerance due to her chronic opioid use. She requested discharge. She did receive an additional dose of fentanyl before discharge. She was instructed to follow-up with her doctors. Return for any new or worsening issues. Treatment Plan: As above Disposition: Discharged Impression: 1. Chronic pain This note was generated with [employer] dictation software. It may contain incorrect words, spelling, and punctuation that were not noted in review of the chart prior to signing ED Disposition - Plan for ED Patient: Chief Complaint: General Illness Referrals: Stanley Page Chi, MD [Primary Care Provider] -
[2017-10-09] MEDS: fentaNYL 100 MCG/2 ML Ampul 25 MCG IV (17:28)
--- NOTE | 2017-10-09 17:29 | ED.RN ---
PT WAS SLEEPING AND HAD TO BE AWAKENED TO MEDICATE THEN PT REPORTED PAIN BETWEEN 8-10 AND MY LEFT ARM HURTS, I HAVE A HEADACHE
--- NOTE | 2017-10-09 17:30 | ED.DCSUM_ITS ---
- ER Visit Summary Date of Service: 10/09/17 Chief Complaint: Pain all over History of Present Illness: The patient is a 72 F with pain all over that started today. It came on gradually. She complains of pain in her head, chest , back, abdomen, arms and legs. She denies any injury. She does have chronic back pain and takes morphine and hydrocodone at home. She has been taking that with no relief. She denies any other symptoms like fever, nausea, vomiting, shortness of breath. Physical Examination: Vital signs are unremarkable. Patient was triaged as 87% on room air. She was sleeping at the time. Head and neck atraumatic. HEENT exam unremarkable. Heart regular. Lungs clear. Abdomen diffusely tender to palpation. Back is diffusely tender to palpation with light touch. Skin appears normal. No focal or lateralizing neurologic abnormalities. Test Results: EKG showed sinus rhythm at a rate of 98. Left anterior fascicular block. No acute changes. Platelets 131, otherwise CBC normal. CO2 37, glucose 219, creatinine 1.12. Urinalysis unremarkable. Troponin normal. Chest x-ray normal. CT abdomen pelvis normal. Emergency Department Course and Treatment: Patient presents with nonspecific and diffuse pain. She was triaged as hypoxic. I evaluated her several times in the room. She had a normal pulse ox on room air during my evaluations. She was awake. Workup is unremarkable. Vitals are otherwise unremarkable. Nothing to explain diffuse pain over her whole body. Some of this may be from tolerance due to her chronic opioid use. She requested discharge. She did receive an additional dose of fentanyl before discharge. She was instructed to follow-up with her doctors. Return for any new or worsening issues. Treatment Plan: As above Disposition: Discharged Impression: 1. Chronic pain This note was generated with [employer] dictation software. It may contain incorrect words, spelling, and punctuation that were not noted in review of the chart prior to signing ED Disposition - Plan for ED Patient: Chief Complaint: General Illness Referrals: Stanley Page Chi, MD [Primary Care Provider] -
--- NOTE | 2017-10-09 17:30 | ED.DEP ---
ED Disposition - Plan for ED Patient: Chief Complaint: General Illness Instructions: ED Chronic Pain Management Referrals: Stanley Page Chi, MD [Primary Care Provider] -
[2017-10-09 17:31] VITALS: BP 98/60; PULSE 91; RESP 16; O2SAT 96
[2017-10-09 18:03] VITALS: BP 121/76; PULSE 88; RESP 20; O2SAT 96
== END 2017-10-09 18:10 | disposition home or self-care (01) ==
PROVIDERS: Emergency Provider Emergency Medicine; Family Provider Family Medicine Geriatric Medicine; PCP Family Medicine Geriatric Medicine
DX: G89.29 Other chronic pain (principal); M54.2 Cervicalgia; R07.9 Chest pain, unspecified; R10.9 Unspecified abdominal pain; M79.1 Myalgia; R51 Headache; M54.9 Dorsalgia, unspecified; J44.9 Chronic obstructive pulmonary disease, unspecified; I44.4 Left anterior fascicular block; E11.9 Type 2 diabetes mellitus without complications; E66.9 Obesity, unspecified; Z87.891 Personal history of nicotine dependence; Z79.84 Long term (current) use of oral hypoglycemic drugs; Z79.891 Long term (current) use of opiate analgesic; Z79.899 Other long term (current) drug therapy
CPT/HCPCS: 71045; 74176; 80048; 81001; 84484; 85025; 93005; 96361; 96374; 96375; 99284; J7030; J7040; P9612; A4216; J2405

== ENCOUNTER → 2017-11-01 15:14 | Outpatient (CLI) | payer MEDICARE, SELFPAY ==
[2017-11-01 17:52] LABS: ALB/GLOB Ratio 0.8 RATIO (0.9-2.4); AST(SGOT) 53 U/L (15-37); Alanine Aminotransfer ALT/SGPT 47 U/L (13-56); Albumin, Serum 3.4 g/dL (3.2-5.0); Alkaline Phosphatase 106 U/L (45-117); Anion Gap 9 (5-15); BUN 15 mg/dL (7-18); BUN/Creat Ratio 11.5 RATIO (10-20); Calcium,Total 9.5 mg/dL (8.5-10.1); Chloride 101 mmol/L (98-107); Creatinine, Serum 1.31 mg/dL (0.55-1.02); EST Glomerular Filtration Rate 42 mL/min (>60); Est Glom Filt Rate - Afr Amer 51 mL/min (>60); Globulin 4.2 g/dL (2.2-4.2); Glucose 146 mg/dL (74-106); Potassium 4.8 mmol/L (3.5-5.1); Protein, Total 7.6 g/dL (6.4-8.2); Sodium Level 141 mmol/L (136-145); Thyroid Stim Hormone (TSH) 1.61 uIU/mL (0.358-3.74)
[2017-11-01 18:00] LABS: Absolute Lymphocyte Count 2.31 X10^3/ul (0.83-4.51); Absolute Neutrophil Count 3.5 X10^3/uL (2.0-7.7); Basophil# 0.02 X10^3/uL; Basophil% 0.3 % (0-1); Differential Indicated SCAN CRITERIA MET; Eosinophil# 0.13 X10^3/uL; Eosinophils% 2.1 % (0-5); Hematocrit 45.3 % (37-47); Lymphocyte # 2.31 X10^3/ul (4.0); Lymphocyte % 37.2 % (19-41); Mean Corp Hgb Conc 30.9 g/gl (32-36); Mean Corpuscular Hgb 28.8 pg (27.0-32.0); Mean Corpuscular Volume 93.2 fL (81-99); Mean Platelet Vol. 11.2 fl (6.2-12.0); Monocyte# 0.29 X10^3/uL; Monocyte% 4.7 % (0-10); Neutrophil # 3.46 X10^3/uL (2.7-7.7); Neutrophil % 55.7 % (47-70); POSITIVE COUNT YES; POSITIVE DIFFERENTIAL NO; POSITIVE MORPHOLOGY YES; Platelet Count 141 K/mm3 (150-450); RBC Distribution Width CV 13.9 % (11.6-14.6); RBC Distribution Width SD 47.3 fl (35.1-43.9); Red Blood Count 4.86 M/mm3 (4.2-5.4); White Blood Count 6.2 K/mm3 (4.4-11.0)
[2017-11-01 18:13] LABS: Platelet Estimate ADEQUATE (ADEQ)
[2017-11-02 09:10] LABS: Vitamin D,25 Hydroxy 17.9 ng/mL (29.95-100.01)
== END ==
LOC: POLAB3 15:15
PROVIDERS: Family Provider Family Medicine Geriatric Medicine; PCP Family Medicine Geriatric Medicine; Visit Provider Family Medicine Geriatric Medicine
DX: E11.9 Type 2 diabetes mellitus without complications (principal); I10 Essential (primary) hypertension; E55.9 Vitamin D deficiency, unspecified
CPT/HCPCS: 36415; 80053; 82306; 84443; 85025

== ENCOUNTER → 2017-12-31 14:44 | Outpatient (CLI) | payer MEDICARE, SELFPAY ==
--- NOTE | 2017-12-31 14:49 | RAD_ITS ---
STUDY: X-RAY CHEST REASON FOR EXAM: Female, 72 years old. Chronic bronchitis and shortness of breath TECHNIQUE: PA and lateral views of the chest. COMPARISON: 10/09/2017 FINDINGS: Metallic ring noted in the upper abdominal region, likely overlapping artifact. The lungs are mildly hypoinflated. Lungs are essentially clear. There is no demonstrated pleural abnormality. Normal size heart. Normal mediastinum and radha. Normal visualized pulmonary arteries. There is atherosclerotic tortuosity of the aortic arch and descending thoracic aorta. There are diffuse degenerative changes of the visualized thoracic spine. Normal visualized ribs, clavicles, and shoulders. There is no demonstrated abnormality of the visualized soft tissue structures of the upper abdomen. RAD/Chest PA and Lateral IMPRESSION: No acute cardiopulmonary disease. Electronically Signed: Kamlesh Castelan DO at 15:11 EDT Tel , Service support ,
== END ==
PROVIDERS: Family Provider Family Medicine Geriatric Medicine; PCP Family Medicine Geriatric Medicine; Referring Provider Family Medicine Geriatric Medicine; Visit Provider Family Medicine Geriatric Medicine
DX: J41.0 Simple chronic bronchitis (principal); R68.83 Chills (without fever)
CPT/HCPCS: 71046; 87633

== ENCOUNTER → 2018-01-21 14:34 | Outpatient (CLI) | payer MEDICARE, SELFPAY ==
[2018-01-21 17:33] LABS: AST(SGOT) 45 U/L (15-37); Alanine Aminotransfer ALT/SGPT 46 U/L (13-56); Albumin, Serum 3.3 g/dL (3.2-5.0); Alkaline Phosphatase 102 U/L (45-117); Anion Gap 12 (5-15); BUN 20 mg/dL (7-18); BUN/Creat Ratio 16.1 RATIO (10-20); Calcium,Total 9.4 mg/dL (8.5-10.1); Chloride 100 mmol/L (98-107); Creatinine, Serum 1.24 mg/dL (0.55-1.02); EST Glomerular Filtration Rate 45 mL/min (>60); Est Glom Filt Rate - Afr Amer 55 mL/min (>60); Globulin 3.4 g/dL (2.2-4.2); Glucose 300 mg/dL (74-106); Potassium 4.2 mmol/L (3.5-5.1); Protein, Total 6.7 g/dL (6.4-8.2); Sodium Level 144 mmol/L (136-145); Thyroid Stim Hormone (TSH) 1.08 uIU/mL (0.358-3.74)
[2018-01-21 18:36] LABS: Absolute Lymphocyte Count 2.08 X10^3/ul (0.83-4.51); Absolute Neutrophil Count 3.8 X10^3/uL (2.0-7.7); Basophil# 0.02 X10^3/uL; Basophil% 0.3 % (0-1); Eosinophil# 0.16 X10^3/uL; Eosinophils% 2.5 % (0-5); Hematocrit 43.6 % (37-47); Hemoglobin 13.5 g/dl (12.0-15.0); Lymphocyte # 2.08 X10^3/ul (4.0); Lymphocyte % 32.4 % (19-41); Mean Corpuscular Volume 93.8 fL (81-99); Mean Platelet Vol. 11.4 fl (6.2-12.0); Monocyte% 6.2 % (0-10); Neutrophil # 3.75 X10^3/uL (2.7-7.7); Neutrophil % 58.4 % (47-70); Platelet Count 108 K/mm3 (150-450); RBC Distribution Width CV 14.3 % (11.6-14.6); RBC Distribution Width SD 48.4 fl (35.1-43.9); Red Blood Count 4.65 M/mm3 (4.2-5.4); White Blood Count 6.4 K/mm3 (4.4-11.0)
[2018-01-21 18:40] LABS: Differential Indicated SCAN CRITERIA MET; POSITIVE COUNT YES; POSITIVE DIFFERENTIAL NO; POSITIVE MORPHOLOGY YES
[2018-01-21 22:12] LABS: Differential Comment SCANNED
== END ==
LOC: POLAB3 14:34
PROVIDERS: Family Provider Family Medicine Geriatric Medicine; PCP Family Medicine Geriatric Medicine; Visit Provider Family Medicine Geriatric Medicine
DX: E11.9 Type 2 diabetes mellitus without complications (principal); I10 Essential (primary) hypertension; E55.9 Vitamin D deficiency, unspecified
CPT/HCPCS: 36415; 80053; 82306; 84443; 85025

== ENCOUNTER → 2018-03-14 11:08 | Outpatient (CLI) | payer MEDICARE, SELFPAY ==
--- NOTE | 2018-03-14 11:13 | BI_ITS ---
MAMMOGRAPHY - BILATERAL SCREENING REASON FOR EXAM: Female, 72 years old. Routine annual screening examination. PERTINENT HISTORY: Daughter with breast cancer. TECHNIQUE: Digital bilateral breast efren (3D mammographic acquisition) in the CC and MLO projections. 2-D mediolateral oblique (MLO) and craniocaudad (CC) views of both breasts were obtained. CAD: Full Field Digital Mammography with Computer Added Detection was performed. COMPARISON: Comparison is made with prior study dated February 03, 2015 and February 17, 2016. FINDINGS: Breast Composition: The breasts are almost entirely fatty. There are no dominant masses or suspicious calcifications. No other significant abnormalities are identified. There has been no significant change since the prior study. BI/SCREENING MAMM (CAD), BILAT IMPRESSION: Stable bilateral screening mammogram. Yearly follow-up mammogram recommended. (A) ASSESSMENT CATEGORY: BIRADS Category 1: Negative. A letter regarding these results will be sent to the patient by the facility within 30 days. Approximately 10% of breast cancers are not detected by mammography. A normal mammogram should not delay biopsy of a clinically suspicious abnormality. [id number] Electronically Signed: Jose Montenegro MD at 14:07 EST Tel [phone], Service support ,
== END ==
PROVIDERS: Family Provider Family Medicine Geriatric Medicine; PCP Family Medicine Geriatric Medicine; Referring Provider Family Medicine Geriatric Medicine; Visit Provider Family Medicine Geriatric Medicine
DX: Z12.31 Encounter for screening mammogram for malignant neoplasm of breast (principal); R68.83 Chills (without fever)
CPT/HCPCS: 77063; 77067; 87633

== ENCOUNTER → 2018-04-22 14:51 | Outpatient (CLI) | payer MEDICARE, SELFPAY ==
[2018-04-22 17:21] LABS: AST(SGOT) 31 U/L (15-37); Alanine Aminotransfer ALT/SGPT 31 U/L (13-56); Albumin, Serum 3.5 g/dL (3.2-5.0); Alkaline Phosphatase 75 U/L (45-117); Anion Gap 11 (5-15); BUN 14 mg/dL (7-18); BUN/Creat Ratio 14.5 RATIO (10-20); Calcium,Total 9.3 mg/dL (8.5-10.1); Chloride 103 mmol/L (98-107); Creatinine, Serum 0.97 mg/dL (0.55-1.02); EST Glomerular Filtration Rate 60 mL/min (>60); Est Glom Filt Rate - Afr Amer 73 mL/min (>60); Globulin 3.5 g/dL (2.2-4.2); Glucose 110 mg/dL (74-106); Sodium Level 142 mmol/L (136-145); Uric Acid 7.8 mg/dL (2.6-6.0)
== END ==
LOC: POLAB3 14:52
PROVIDERS: Family Provider Family Medicine Geriatric Medicine; PCP Family Medicine Geriatric Medicine; Visit Provider Family Medicine Geriatric Medicine
DX: E11.9 Type 2 diabetes mellitus without complications (principal); E55.9 Vitamin D deficiency, unspecified; I10 Essential (primary) hypertension; M10.9 Gout, unspecified
CPT/HCPCS: 36415; 80053; 82306; 84443; 84550

== ENCOUNTER → 2018-07-23 14:53 | Outpatient (CLI) | payer MEDICARE, SELFPAY ==
[2018-07-23 17:35] LABS: Absolute Lymphocyte Count 1.95 X10^3/ul (0.83-4.51); Absolute Neutrophil Count 3.8 X10^3/uL (2.0-7.7); Basophil# 0.02 X10^3/uL; Basophil% 0.3 % (0-1); Eosinophil# 0.12 X10^3/uL; Eosinophils% 1.9 % (0-5); Hematocrit 43.6 % (37-47); Hemoglobin 13.4 g/dl (12.0-15.0); Lymphocyte # 1.95 X10^3/ul (4.0); Lymphocyte % 31.2 % (19-41); Mean Corp Hgb Conc 30.7 g/gl (32-36); Mean Corpuscular Hgb 27.6 pg (27.0-32.0); Mean Corpuscular Volume 89.7 fL (81-99); Mean Platelet Vol. 11.2 fl (6.2-12.0); Monocyte# 0.38 X10^3/uL; Monocyte% 6.1 % (0-10); Neutrophil # 3.77 X10^3/uL (2.7-7.7); Neutrophil % 60.3 % (47-70); Platelet Count 155 K/mm3 (150-450); RBC Distribution Width SD 45.4 fl (35.1-43.9); Red Blood Count 4.86 M/mm3 (4.2-5.4); White Blood Count 6.3 K/mm3 (4.4-11.0)
[2018-07-23 18:00] LABS: POSITIVE COUNT NO; POSITIVE DIFFERENTIAL NO; POSITIVE MORPHOLOGY NO
[2018-07-23 18:01] LABS: Vitamin D,25 Hydroxy 38.2 ng/mL (29.95-100.01)
[2018-07-23 18:13] LABS: ALB/GLOB Ratio 0.8 RATIO (0.9-2.4); AST(SGOT) 46 U/L (15-37); Alanine Aminotransfer ALT/SGPT 36 U/L (13-56); Albumin, Serum 3.4 g/dL (3.2-5.0); Alkaline Phosphatase 70 U/L (45-117); Anion Gap 10 (5-15); BUN 15 mg/dL (7-18); BUN/Creat Ratio 10.2 RATIO (10-20); Calcium,Total 9.5 mg/dL (8.5-10.1); Chloride 103 mmol/L (98-107); Creatinine, Serum 1.47 mg/dL (0.55-1.02); EST Glomerular Filtration Rate 37 mL/min (>60); Est Glom Filt Rate - Afr Amer 45 mL/min (>60); Globulin 4.3 g/dL (2.2-4.2); Glucose 140 mg/dL (74-106); Potassium 3.7 mmol/L (3.5-5.1); Protein, Total 7.7 g/dL (6.4-8.2); Sodium Level 143 mmol/L (136-145); Thyroid Stim Hormone (TSH) 2.64 uIU/mL (0.358-3.74); Uric Acid 9.2 mg/dL (2.6-6.0)
== END ==
LOC: POLAB3 14:54
PROVIDERS: Family Provider Family Medicine Geriatric Medicine; PCP Family Medicine Geriatric Medicine; Visit Provider Family Medicine Geriatric Medicine
DX: E11.9 Type 2 diabetes mellitus without complications (principal); I10 Essential (primary) hypertension; E55.9 Vitamin D deficiency, unspecified; M10.9 Gout, unspecified
CPT/HCPCS: 36415; 80053; 82306; 84443; 84550; 85025

== ENCOUNTER → 2018-10-22 09:10 | Outpatient (CLI) | payer MEDICARE, SELFPAY ==
[2018-10-22 16:16] LABS: Absolute Lymphocyte Count 2.25 X10^3/uL (0.83-4.51); Absolute Neutrophil Count 4.3 X10^3/uL (2.0-7.7); Basophil# 0.03 X10^3/uL; Basophil% 0.4 % (0-1); Eosinophil# 0.15 X10^3/uL; Eosinophils% 2.1 % (0-5); Hematocrit 42.4 % (37-47); Hemoglobin 13.1 g/dL (12.0-15.0); Lymphocyte # 2.25 X10^3/ul (4.0); Lymphocyte % 31.1 % (19-41); Mean Corp Hgb Conc 30.9 g/dL (32-36); Mean Corpuscular Hgb 28.4 pg (27.0-32.0); Mean Corpuscular Volume 91.8 fL (81-99); Mean Platelet Vol. 10.2 fl (6.2-12.0); Monocyte# 0.49 X10^3/uL; Monocyte% 6.8 % (0-10); NRBC Flagged by Analyzer 0 % (0-5); Neutrophil # 4.29 X10^3/uL (2.7-7.7); Neutrophil % 59.3 % (47-70); Platelet Count 159 K/mm3 (150-450); RBC Distribution Width CV 13.5 % (11.6-14.6); RBC Distribution Width SD 45.3 fl (35.1-43.9); Red Blood Count 4.62 M/mm3 (4.2-5.4); White Blood Count 7.2 K/mm3 (4.4-11.0)
[2018-10-22 16:36] LABS: Vitamin D,25 Hydroxy 23.8 ng/mL (29.95-100.01)
[2018-10-22 16:39] LABS: ALB/GLOB Ratio 0.8 RATIO (0.9-2.4); AST(SGOT) 38 U/L (15-37); Alanine Aminotransfer ALT/SGPT 37 U/L (13-56); Albumin, Serum 3.3 g/dL (3.2-5.0); Alkaline Phosphatase 91 U/L (45-117); Anion Gap 6 (5-15); BUN 14 mg/dL (7-18); BUN/Creat Ratio 10.1 RATIO (10-20); Calcium,Total 9.5 mg/dL (8.5-10.1); Chloride 103 mmol/L (98-107); Creatinine, Serum 1.38 mg/dL (0.55-1.02); EST Glomerular Filtration Rate 40 mL/min (>60); Est Glom Filt Rate - Afr Amer 48 mL/min (>60); Globulin 4.4 g/dL (2.2-4.2); Glucose 181 mg/dL (74-106); Protein, Total 7.7 g/dL (6.4-8.2); Sodium Level 141 mmol/L (136-145); Thyroid Stim Hormone (TSH) 1.78 uIU/mL (0.358-3.74); Uric Acid 7.6 mg/dL (2.6-6.0)
== END ==
LOC: POLAB3 09:11
PROVIDERS: Family Provider Family Medicine Geriatric Medicine; PCP Family Medicine Geriatric Medicine; Visit Provider Family Medicine Geriatric Medicine
DX: E11.9 Type 2 diabetes mellitus without complications (principal); I10 Essential (primary) hypertension; E55.9 Vitamin D deficiency, unspecified; M10.9 Gout, unspecified
CPT/HCPCS: 36415; 80053; 82306; 84443; 84550; 85025

== ENCOUNTER 2019-01-15 09:36 | Observation (INO) | payer MEDICARE, SELFPAY ==
[2019-01-15] VITALS (7 sets, daily range): BP systolic 109–137; BP diastolic 59–94; PULSE 82–96; RESP 16–18; TEMP 36.7–37.2; O2SAT 89–98; BMI 39.0; BMI 47.1
--- NOTE | 2019-01-15 09:57 | CT_ITS ---
STUDY: CT CERVICAL SPINE WITHOUT CONTRAST REASON FOR EXAM: Female, 73 years old. Fall secondary to a syncopal episode. RADIATION DOSAGE (If Supplied By Facility): CTDIvol = ( 42.91 ) mGy, DLP = ( 860.00 ) mGycm TECHNIQUE: High resolution transaxial imaging was performed without contrast material. Sagittal and coronal images were reconstructed. Individualized dose optimization techniques were used for this CT. COMPARISON: None FINDINGS: Normal craniovertebral junction. There are degenerative changes of the anterior atlantoaxial articulation. Normal odontoid process. There is straightening of the normal cervical lordosis. Normal vertebral bodies and posterior osseous elements. C2-3: Normal endplates. Normal disc height and morphology. Normal central canal and intervertebral neuroforamina. C3-4: Facet joint osteoarthritis and hypertrophy worse on the right side. No significant stenosis is seen. C4-5: Moderate degree of disc space narrowing and spondylosis. Uncovertebral arthrosis. Mild degree of bilateral neural foraminal stenosis. C5-6: Moderate degree of disc space narrowing with spondylosis. Uncovertebral arthrosis. No significant stenosis seen. C6-7: Moderate degree of disc space narrowing with spondylosis and uncovertebral arthrosis. No fracture is seen. Normal visualized soft tissue structures. CT/Spine Cervical without Contras IMPRESSION: Multilevel degenerative changes, as described above. Electronically Signed: Jose Montenegro, at 12:34 EST , Service support ,
--- NOTE | 2019-01-15 09:57 | CT_ITS ---
STUDY: CT BRAIN WITHOUT CONTRAST REASON FOR EXAM: Female, 73 years old. Syncopal episode. Left periorbital hematoma. RADIATION DOSAGE (If Supplied By Facility): CTDIvol = ( 44.99 ) mGy, DLP = ( 812.98 ) mGycm TECHNIQUE: Transaxial CT imaging of the brain was performed without administration of intravenous contrast material. Individualized dose optimization techniques were used for this CT. COMPARISON: Comparison is made with prior study dated May 05, 2014. FINDINGS: There is evidence of a moderate-sized hematoma overlying the left periorbital region. There is hyperostosis frontalis internus. There is mild cerebral atrophy with widening of the extra-axial spaces and ventricular dilatation. There are areas of decreased attenuation within the white matter tracts of the supratentorial brain, consistent with microvascular disease changes. Normal basal ganglia and thalami. Normal brainstem. Normal cerebellum. There is no intracranial hemorrhage. There are no findings of an acute ischemic infarction. Atherosclerotic calcification of the vertebral arteries and cavernous portions of the internal carotid arteries bilaterally. Mild degree of mucosal thickening along the medial wall of the right maxillary sinus. CT/Brain/Head without Contrast IMPRESSION: Soft tissue hematoma overlying the left orbital region. Electronically Signed: Jose Montenegro, at 12:31 EST , Service support ,
--- NOTE | 2019-01-15 09:57 | CT_ITS ---
STUDY: CT FACIAL BONES WITHOUT CONTRAST REASON FOR EXAM: Female, 73 years old. Fall secondary to a syncopal episode. Left periorbital hematoma. RADIATION DOSAGE (If Supplied By Facility): CTDIvol = ( 29.38 ) mGy, DLP = ( 569.49 ) mGycm TECHNIQUE: The patient was scanned in a multi detector CT scanner. Sagittal and coronal images were reconstructed. Individualized dose optimization techniques were used for this CT. COMPARISON: None. FINDINGS: Left periorbital hematoma. Normal orbital crump and orbital contents. Normal nasal bones and anterior nasal spine. Normal facial bones. There is no demonstrated fracture. Nodular mucosal thickening along the medial wall of the right maxillary sinus. CT/Sinus/Facial Bone IMPRESSION: Moderate sized left periorbital hematoma. Electronically Signed: Jose Montenegro, at 12:30 EST , Service support ,
--- NOTE | 2019-01-15 09:57 | CT_ITS ---
STUDY: CT ABDOMEN AND PELVIS WITHOUT CONTRAST REASON FOR EXAM: Female, 73 years old. History of fall due to syncopal episode. RADIATION DOSAGE (If Supplied By Facility): CTDIvol = ( 33.90 ) mGy, DLP = ( 1676.98 ) mGycm TECHNIQUE: Transaxial images were obtained from the dome of the diaphragm to the symphysis pubis without oral contrast, and without intravenous contrast. Sagittal and coronal images were reconstructed. Individualized dose optimization techniques were used for this CT. COMPARISON: Comparison is made with prior study dated October 09, 2017. FINDINGS: Minimal increased markings at the lung bases suggestive of atelectasis. The visualized portions of the heart are within normal limits. There is decreased attenuation of the liver consistent with steatosis. There are surgical clips in the gallbladder fossa consistent with a prior cholecystectomy. Normal spleen. Normal pancreas. Normal bilateral adrenal glands. Normal right kidney. Normal left kidney. There is a small hiatal hernia. Normal small intestine. Normal colon. The appendix is visualized and appears normal. There is diffuse atherosclerotic calcification of the abdominal aorta, without a demonstrated aneurysm. Normal inferior vena cava. Normal retroperitoneum. Normal urinary bladder. There is absence of the uterus consistent with a prior hysterectomy. Normal abdominal wall. There are diffuse degenerative changes of the visualized lumbar spine. Prior vertebroplasty of the T12 vertebrae with loss of height. Old compression fracture of the L3 vertebrae. CT/Abdomen/Pelvis without Cont IMPRESSION: Stable examination. No acute abnormality is seen. Electronically Signed: Jose Moni, at 12:27 EST , Service support ,
--- NOTE | 2019-01-15 09:57 | RAD_ITS ---
STUDY: X-RAY CHEST REASON FOR EXAM: Female, 73 years old. Status post fall. TECHNIQUE: Single AP portable view of the chest. COMPARISON: None. FINDINGS: The lungs are clear and expanded. There is no demonstrated pleural abnormality. Normal size heart. Normal mediastinum and radha. Normal visualized pulmonary arteries. There is atherosclerotic calcification of the aortic arch with tortuosity. Normal visualized thoracic spine. There is degenerative osteoarthritis of the bilateral shoulders. There is no demonstrated abnormality of the visualized soft tissue structures of the upper abdomen. RAD/Chest 1 View (Portable) IMPRESSION: No acute cardiopulmonary disease. Electronically Signed: Lashaun Villa MD at 7:49 EST , Service support ,
--- NOTE | 2019-01-15 09:59 | EKG12_ITS ---
Test Reason : FALL Blood Pressure : / mmHG Vent. Rate : 081 BPM Atrial Rate : 081 BPM P-R Int : 174 ms QRS Dur : 118 ms QT Int : 394 ms P-R-T Axes : 063 -56 072 degrees QTc Int : 457 ms Normal sinus rhythm Left axis deviation Incomplete left bundle branch block Abnormal ECG Confirmed by DAREN RODRIGUEZ, TATA ([id number]), editor continuity and script RUTH JUAREZ ([id number]) on 01/21/2019 1:05:43 PM Referred By: Devan Molina Confirmed By:LINSEY MERCEDES MD
--- NOTE | 2019-01-15 10:04 | ED.DCSUM_ITS ---
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 She was awake when he found her. She had evidence of obvious maxillofacial trauma. She does not have any spe cific complaints as she is very confused at this time, limiting history as she does not remember anything. The son states that he and the got her out of the house for the last few days and did some errands, some walking, she has been prone to falls after doing this in the past because of being tired. No known recent illnesses. Tetanus Immunization: Unknown - Past Medical History (1) Alzheimer's dementia Status: Chronic (2) Anxiety and depression Status: Chronic (3) COPD (chronic obstructive pulmonary disease) Status: Chronic (4) Chronic neck pain Status: Chronic (5) Diabetes mellitus, type II Status: Chronic (6) HLD (hyperlipidemia) Status: Chronic (7) HTN (hypertension) Status: Chronic (8) Morbid obesity Status: Chronic (9) SARAH (obstructive sleep apnea) Status: Chronic Past Medical History - Allergies and Home Meds Allergies/Adverse Reactions: Allergies No Known Allergies Allergy (Verified 01/15/19 09:37) Primary Care Physician: Stanley Page Chi, MD [Primary Care Provider] - Surgical History: - - Appendectomy, Cholecystectomy, Hysterectomy, BL TKR. Lives: Spouse/ Significant Other Smoking Status: Former smoker - Family History Maternal Family History: Reports: Cancer Paternal Family History: Reports: Cancer Review of Systems ROS: Unable to Obtain - limited ROS due to severe dementia Physical Exam Vital Signs/Narrative: Vital Signs Temp Pulse Resp BP Pulse Ox 01/15/19 09:37 98.1 F 82 16 137/88 H 92 Inital Vital Signs reviewed: Yes General: Well nourished, Well developed Head: Normocephalic, Trauma, Tenderness - mostly to left upper face Eyes: Perrl - cannot eval left eye due to severe eyelid swelling/ecchymosis/trauma, EOMI - cannot eval left eye due to severe eyelid swelling/ecchymosis/trauma ENT: TM's clear, No hemotympanum or drainage, - - See below. Significant left maxillofacial trauma, mostly around the orbit. Also tender in the mid face and grabs examiner's hand multiple times limiting the exam, but I do not palpate any instability. There is no epistaxis or nasal trauma evidence.. Negative for: Otorrhea, Nasal trauma Neck: Spinal Tenderness - mid-c-spine; no step off or outward signs of trauma Cardiovascular: Regular rate, Regular rhythm, No murmurs Respiratory: No distress, CTA bilaterally, Chest nontender Abdomen: Soft, Nondistended, Normal bowel sounds, Tender - epigastric, Guarding - vol. Negative for: Rebound tenderness Back: Nontender. Negative for: Spinal Tenderness Extremeties: Small contusion left dorsal mid forearm, nontender, no lacerations. Pain full range of motion of left shoulder, son states that is chronic. Otherwise, full range of motion throughout all other extremity joints without apparent pain or injury. Skin: Normal color, Trauma - 2 forehead lacerations, one is 1 cm superficial partial-thickness, just right of midline, the other is around the area of the left eyebrow, blood is dried, presently 4 cm, depth to be determined. Appears clean but there is significant trauma to this area with eyelid swelling/ecchymosis to the point of not being able to evaluate the globe/eye at all. Patient withdraws and grabs my hand when I attempt to examine this area at all. Neurological: Alert, Cranial nerves II-XII grossly intact, Normal Strength, Normal Sensation, Confused, Disoriented - oriented to person only. Negative for: Oriented x3 Psychological: Normal affect, Normal Mood Diagnostic/Tx/Re-eval Chest X-Ray - ED: 1 View, Read by ED Physician, No Acute Disease Impressions Abdomen/Pelvis CT 01/15/19 09:57 IMPRESSION: Stable examination. No acute abnormality is seen. Electronically Signed: Jose Montenegro, at 12:27 EST , Service support , Brain CT 01/15/19 09:57 IMPRESSION: Soft tissue hematoma overlying the left orbital region. Electronically Signed: Jose Montenegro, at 12:31 EST , Service support , Cervical Spine CT 01/15/19 09:57 IMPRESSION: Multilevel degenerative changes, as described above. Electronically Signed: Jose Montenegro, at 12:34 EST , Service support , Facial/Sinus 01/15/19 09:57 IMPRESSION: Moderate sized left periorbital hematoma. Electronically Signed: Jose Montenegro, at 12:30 EST , Service support , 01/15/19 09:57 Brain/Head without Contrast [CT] Stat CT Abd [Abdomen/Pelvis without Cont] [CT] Stat Chest 1 View (Portable) [RAD] Stat Sinus/Facial Bone [CT] Stat Spine Cervical without Contras [CT] Stat Laboratory Results 01/15/19 01/15/19 01/15/19 10:15 10:15 10:15 WBC 4.9 RBC 4.56 Hgb 12.5 Hct 41.9 MCV 91.9 MCH 27.4 MCHC 29.8 L RDW Std Deviation 46.7 H RDW Coeff of Keenan 13.8 Plt Count 126 L MPV 9.8 Immature Gran % (Auto) 0.200 Neut % (Auto) 61.3 Lymph % (Auto) 29.6 [place] % (Auto) 6.5 Eos % (Auto) 2.0 Baso % (Auto) 0.4 Absolute Neuts (auto) 3.0 Absolute Lymphs (auto) 1.45 Nucleated RBC % 0 Sodium 141 Potassium 4.3 Chloride 104 Carbon Dioxide 34.0 H Anion Gap 3 L BUN 20 H Creatinine 1.28 H Estim Creat Clear Calc 28.12 Est GFR (MDRD) Af Amer 53 L Est GFR (MDRD) Non-Af 43 L BUN/Creatinine Ratio 15.6 Glucose 124 H Lactic Acid 1.8 Calcium 9.5 Total Bilirubin 0.40 AST 37 ALT 30 Alkaline Phosphatase 79 Troponin I < 0.015 Total Protein 7.4 Albumin 3.5 Globulin 3.9 Albumin/Globulin Ratio 0.9 Lipase 119 Urine Color Urine Clarity Urine pH Ur Specific [place] Urine Protein Urine Glucose (UA) Urine Ketones Urine Occult Blood Urine Nitrite Urine Bilirubin Urine Urobilinogen Ur Leukocyte Esterase Urine RBC Urine WBC Ur Squamous Epith Cells Urine Bacteria Urine Mucus 01/15/19 10:25 WBC RBC Hgb Hct MCV MCH MCHC RDW Std Deviation RDW Coeff of Keenan Plt Count MPV Immature Gran % (Auto) Neut % (Auto) Lymph % (Auto) [place] % (Auto) Eos % (Auto) Baso % (Auto) Absolute Neuts (auto) Absolute Lymphs (auto) Nucleated RBC % Sodium Potassium Chloride Carbon Dioxide Anion Gap BUN Creatinine Estim Creat Clear Calc Est GFR (MDRD) Af Amer Est GFR (MDRD) Non-Af BUN/Creatinine Ratio Glucose Lactic Acid Calcium Total Bilirubin AST ALT Alkaline Phosphatase Troponin I Total Protein Albumin Globulin Albumin/Globulin Ratio Lipase Urine Color Straw Urine Clarity Clear Urine pH 6.5 Ur Specific [place] 1.010 Urine Protein Negative Urine Glucose (UA) Normal Urine Ketones Negative Urine Occult Blood Negative Urine Nitrite Negative Urine Bilirubin Negative Urine Urobilinogen Normal Ur Leukocyte Esterase Negative Urine RBC 0 SEEN Urine WBC 0 SEEN Ur Squamous Epith Cells 0-5 SEEN Urine Bacteria 0 SEEN Urine Mucus 0 SEEN - Rhythm Strip Rhythm Strip: Sinus Rhythm Rate: 80 Ectopy: None - EKG Initial EKG Interpretation: Sinus Rhythm, No Acute Injury Pattern, LBBB - incomplete Prior: Unchanged - Medical Decision Making Was able to evaluate the patient's left eye. The cornea appears to be intact in the anterior chamber grossly is deep and quiet, there does appear to be subconjunctival hemorrhage that is inferior, CT shows no fractures or retrobulbar hemorrhage. She has limited vision out of the left eye, she can see hand wave. She is not having a lot of eye pain. Normal vision for her out of the right. Will get visual acuities.The laceration was cleansed, anesthetized, and repaired. See the procedure note. She cannot see out of the side because she can barely open it and I can barely open it for her. Family is concerned that she may have another fall at home, and asked that she be rehab in order to get back home for her spouse to care for as he has been. Procedures - Lacerations left forehead Length: 4 cm Depth: Sub Q Shape: Flap - V-shaped Prep: Sterile Conditions, Betadine, Chlorhexadine Laceration Repair: Lidocaine with epi - 2% w/ epi, 4cc Irrigated (ml): 40 Number of Sutures/Steph: 6 Suture Information: Ethilon, Simple, 6-0 ED Disposition - Plan for ED Patient: Disposition: Acute Care Hospital [facility] Diagnosis: Forehead laceration, Closed head injury, Alzheimer's dementia, Periorbital hematoma of left eye Referrals: Stanley Page Chi, MD [Primary Care Provider] -
[2019-01-15 10:29] LABS: Absolute Lymphocyte Count 1.45 X10^3/uL (0.83-4.51); Basophil# 0.02 X10^3/uL; Basophil% 0.4 % (0-1); Hematocrit 41.9 % (37-47); Hemoglobin 12.5 g/dL (12.0-15.0); Lymphocyte # 1.45 X10^3/ul (4.0); Lymphocyte % 29.6 % (19-41); Mean Corp Hgb Conc 29.8 g/dL (32-36); Mean Corpuscular Hgb 27.4 pg (27.0-32.0); Mean Corpuscular Volume 91.9 fL (81-99); Mean Platelet Vol. 9.8 fl (6.2-12.0); Monocyte# 0.32 X10^3/uL; Monocyte% 6.5 % (0-10); NRBC Flagged by Analyzer 0 % (0-5); Neutrophil % 61.3 % (47-70); Platelet Count 126 K/mm3 (150-450); RBC Distribution Width CV 13.8 % (11.6-14.6); RBC Distribution Width SD 46.7 fl (35.1-43.9); Red Blood Count 4.56 M/mm3 (4.2-5.4); White Blood Count 4.9 K/mm3 (4.4-11.0)
[2019-01-15 10:36] LABS: Bacteria 0 SEEN /hpf (None Seen); Mucous, Urine 0 SEEN /hpf (<or=2+); Red Blood Cells-Urine 0 SEEN /hpf (0-5); White Blood Cells 0 SEEN /hpf (0-5)
[2019-01-15 10:37] LABS: Color, Urine Straw (Yellow); Glucose, Dipstick Normal (Normal); Ketone-Dipstick Negative (Negative); Leukocyte Esterase-Dipstick Negative /ul (Negative); Nitrite-Dipstick Negative (Negative); Occult Blood-Urine Negative /ul (Negative); Protein-Dipstick Negative (Negative); Urine Bilirubin Dipstick Negative (Negative); Urine Clarity Clear (Clear); Urine Urobilinogen Normal (Normal); Urine pH 6.5 (5.0 - 8.0)
[2019-01-15 10:45] LABS: Squamous Epithelial Cells - UA 0-5 SEEN /hpf (5-10)
[2019-01-15 10:47] LABS: ALB/GLOB Ratio 0.9 RATIO (0.9-2.4); AST(SGOT) 37 U/L (15-37); Alanine Aminotransfer ALT/SGPT 30 U/L (13-56); Albumin, Serum 3.5 g/dL (3.2-5.0); Alkaline Phosphatase 79 U/L (45-117); Anion Gap 3 (5-15); BUN 20 mg/dL (7-18); BUN/Creat Ratio 15.6 RATIO (10-20); Calcium,Total 9.5 mg/dL (8.5-10.1); Chloride 104 mmol/L (98-107); Creatinine, Serum 1.28 mg/dL (0.55-1.02); EST Glomerular Filtration Rate 43 mL/min (>60); Est Glom Filt Rate - Afr Amer 53 mL/min (>60); Estimated Creatinine Clearance 28.12 ml/min; Globulin 3.9 g/dL (2.2-4.2); Glucose 124 mg/dL (74-106); Lipase 119 U/L (73-393); Potassium 4.3 mmol/L (3.5-5.1); Protein, Total 7.4 g/dL (6.4-8.2); Sodium Level 141 mmol/L (136-145)
[2019-01-15 10:48] LABS: Lactic Acid 1.8 mmol/L (0.4-2.0)
[2019-01-15] MEDS: Morphine 2 MG/ML Syringe IV (10:49)
[2019-01-15] MEDS: 0.9% Normal Saline 1,000 ML 150 ML IV (10:49)
[2019-01-15] MEDS: Ondansetron 4 MG/2 ML Vial IV (10:49)
--- NOTE | 2019-01-15 13:38 | NURSING ---
MED SURG OBS CLOSED HEAD INJURY, DEMENTIA RONY
[2019-01-15] MEDS: LORazepam 1 MG Tablet PO (17:21)
--- NOTE | 2019-01-15 17:26 | PCM.HP.STD ---
Problem List (1) Left periorbital and orbital contusion Status: Acute History of Present Illness Date of Admission: 01/15/19 Chief Complaint: Left periorbital and orbital contusion secondary to a fall The patient is a 73 year old F who was seen in the emergency room at [facility] after being brought in by her due to a fall at home. Patient has dementia and is unable to provide history. Patient's states that she was in the bathroom and he believes she went to sit down on the commode and missed the commode falling forward and striking her left periorbital and orbital area. Work-up in the emergency room included labs-CBC was unremarkable, chemistry panel was remarkable for BUN of 20 and a creatinine of 1.28. Urinalysis was unremarkable. Imaging studies were performed including cervical spine CT, brain CT, abdomen and pelvis CT, and a chest x-ray as well as facial and sinus x-rays. Other than a moderate sized left periorbital hematoma, no acute abnormalities were noted on any of the imaging studies. Patient will be placed in observation status on [place] [id number] and she will be seen by PT and OT. Patient's wants the patient to go home tomorrow if possible rather than go to a nursing facility. Past Medical History Past Medical History (Chronic Problems): Chronic Problems Chronic neck pain (Chronic) Morbid obesity (Chronic) HTN (hypertension) (Chronic) HLD (hyperlipidemia) (Chronic) COPD (chronic obstructive pulmonary disease) (Chronic) SARAH (obstructive sleep apnea) (Chronic) Diabetes mellitus, type II (Chronic) Anxiety and depression (Chronic) Alzheimer's dementia (Chronic) Allergies No Known Allergies Allergy (Verified 01/15/19 09:37) Home Medications: Ambulatory Orders Medication Instructions Recorded Duloxetine HCl 60 mg PO BID 03/28/16 Furosemide 40 mg PO DAILY 03/28/16 Meclizine HCl [Antivert] 25 mg PO Q6H PRN PRN 03/28/16 Memantine HCl/Donepezil HCl 1 capsule PO DAILY 03/28/16 [Namzaric 28 mg-10 mg Capsule] Trazodone HCl 100 mg PO QHS 03/28/16 Colchicine 0.6 mg PO DAILY 07/26/17 Potassium Chloride [K-Dur] 20 meq PO BID 07/26/17 Pravastatin Sodium 40 mg PO QHS 07/26/17 metFORMIN HCl [Glucophage] 1,000 mg PO BID 07/26/17 Multivit-Min/Iron/Folic/Lutein 1 tablet PO DAILY 10/09/17 [Centrum Silver Women Tablet] Surgical History: - - Appendectomy, Cholecystectomy, Hysterectomy, BL TKR. Psychiatric History: Anxiety, Depression [employer] History: No pertinent [employer] history Lives: Spouse/ Significant Other Smoking Status: Former smoker Tobacco Use: Cigarettes Alcohol: None Drugs: None - *Family History Maternal History Items: Cancer Paternal History Items: Cancer Review of Systems Comment: Review of systems was unobtainable from the patient due to dementia, medical information was obtained from the and her son who were present during the time of my examination VTE Information - Inpt Only VTE Present on Admission: No VTE Mechan Device Prophylaxis: None VTE Pharm Prophylaxis ordered?: Yes Patient Problems: Active and Suspected Problems Forehead laceration (Acute) Closed head injury (Acute) Periorbital hematoma of left eye (Acute) Left periorbital and orbital contusion (Acute) - Physical Exam Vitals/I&O's: Vital Signs Temp Pulse Resp BP Pulse Ox 98.1 F 84 16 128/94 H 93 01/15/19 14:41 01/15/19 14:41 01/15/19 14:41 01/15/19 14:41 01/15/19 15:05 Oxygen Flow Rate (L/min) 2 Oxygen Delivery Method Nasal Cannula Weight: 108.862 kg Body Mass Index (BMI) 47.1 Intake and Output for Last 24 Hours 01/13/19 01/14/19 01/15/19 23:59 23:59 23:59 Intake Total 477.5 / 477.5 Balance 477.5 / 477.5 General: Alert, Cooperative, No apparent distress, Well developed, Well nourished, Confused HEENT: PERRLA, EOMI, Normocephalic, - - There is a large left periorbital hematoma present, there is also hematoma of the conjunctiva noted on the left, patient has a sutured laceration above her left eyebrow Oral: Moist Mucosa Neck: Supple, No JVD, Negative Carotid Bruits, Trachea Midline, Thyroid Normal Size and Texture Lungs: Clear to auscultation, Normal air movement, No rhonchi, No wheeze Cardiovascular: Regular rate, Regular Rhythm, Normal S1, Normal S2, No murmurs, No Ectopic Activity, PMI Normal, No rub noted Abdomen: Bowel Sounds Present, Soft, Non Tender, Non-Distended, Obese, No hernias noted Extremities: No clubbing, No cyanosis, No edema, Capillary Refill Less than 3 Seconds Skin: No rashes, No breakdown Musculoskeletal: No Tenderness to Palpation of Joints or Extremities Neurological: Cranial nerves II-XII grossly intact, Neuro grossly intact, Sensory exam intact to light touch and pain Psych/Mental Status: Flat Affect, - - Patient is alert but confused, she follows simple commands at times, she does not appear agitated Laboratory Results 01/15/19 10:15: WBC 4.9, RBC 4.56, Hgb 12.5, Hct 41.9, MCV 91.9, MCH 27.4, MCHC 29.8 L, RDW Std Deviation 46.7 H, RDW Coeff of Keenan 13.8, Plt Count 126 L, MPV 9.8, Immature Gran % (Auto) 0.200, Neut % (Auto) 61.3, Lymph % (Auto) 29.6, [place] % (Auto) 6.5, Eos % (Auto) 2.0, Baso % (Auto) 0.4, Absolute Neuts (auto) 3.0, Absolute Lymphs (auto) 1.45, Nucleated RBC % 0 01/15/19 10:15: Sodium 141, Potassium 4.3, Chloride 104, Carbon Dioxide 34.0 H, Anion Gap 3 L, BUN 20 H, Creatinine 1.28 H, Estim Creat Clear Calc 28.12, Est GFR (MDRD) Af Amer 53 L, Est GFR (MDRD) Non-Af 43 L, BUN/Creatinine Ratio 15.6, Glucose 124 H, Calcium 9.5, Total Bilirubin 0.40, AST 37, ALT 30, Alkaline Phosphatase 79, Troponin I < 0.015, Total Protein 7.4, Albumin 3.5, Globulin 3.9, Albumin/Globulin Ratio 0.9, Lipase 119 01/15/19 10:15: Lactic Acid 1.8 01/15/19 10:25: Urine Color Straw, Urine Clarity Clear, Urine pH 6.5, Ur Specific [place] 1.010, Urine Protein Negative, Urine Glucose (UA) Normal, Urine Ketones Negative, Urine Occult Blood Negative, Urine Nitrite Negative, Urine Bilirubin Negative, Urine Urobilinogen Normal, Ur Leukocyte Esterase Negative, Urine RBC 0 SEEN, Urine WBC 0 SEEN, Ur Squamous Epith Cells 0-5 SEEN, Urine Bacteria 0 SEEN, Urine Mucus 0 SEEN Current Medications Sodium Chloride () 1,000 mls @ 150 mls/hr IV .Q6H40M [facility] Last Infusion: 01/15/19 14:00 Dose: 150 mls/hr Documented by: Lorazepam (Ativan) 1 mg IV Q4H PRN PRN PRN Reason: ANXIETY/AGITATION Lorazepam (Ativan) 1 mg PO Q4H PRN PRN PRN Reason: ANXIETY/AGITATION Sodium Chloride () 10 - 40 ml IV UD PRN PRN Reason: SALINE FLUSH Assessment/Plan All Active Problems Chronic respiratory failure with hypoxia (Resolved) Acute respiratory failure with hypoxia and hypercapnia (Resolved) COPD exacerbation (Resolved) Pneumonia (Resolved) Forehead laceration (Acute) Closed head injury (Acute) Periorbital hematoma of left eye (Acute) Left periorbital and orbital contusion (Acute) Fecal occult blood test positive (Resolved) #1 left periorbital/orbital contusion with ecchymosis secondary to mechanical fall-patient will be placed in observation status on [facility] 3, she will be seen by PT and OT, the plan is for the patient to return home if possible tomorrow #2 Alzheimer's dementia #3 type 2 diabetes-I do not feel the patient needs fingerstick blood sugars monitored while she is here overnight #4 morbid obesity #5 chronic obstructive pulmonary disease #6 left forehead laceration #7 hyperlipidemia #8 chronic anxiety/depression Code Visit OBSV E&M: 11815 Initial observation care L3
[2019-01-15] MEDS: traZODone 100 MG Tablet PO (20:18)
[2019-01-15] MEDS: Pravastatin 40 MG Tablet PO (20:18)
[2019-01-15] MEDS: DULoxetine Hcl 60 MG Capsule PO (20:20)
[2019-01-15] MEDS: Heparin Injection (Vial) 5,000 UNIT/ML VIAL 5000 UNIT SC (20:20)
[2019-01-16] VITALS (8 sets, daily range): BP systolic 102–142; BP diastolic 50–66; PULSE 83–100; RESP 16–18; TEMP 36.7–37.3; O2SAT 93–100
[2019-01-16] MEDS: LORazepam 1 MG Tablet PO (04:51)
--- NOTE | 2019-01-16 08:15 | NURSING ---
Dr. Whitaker came to nurses' station and requested to see if cash management officer is available for a consult and if so to let him know so order can be placed. This RN called Dr. Steele subway train operator to notify of potential consult and to see if DrPk would come to hospital. Dr. Steele came on the line and spoke with this RN. He states that there would be no acute treatment but that he would be more than willing to see her outpatient. Dr. Steele states that if the hospitalist would like to speak with him that they could contact him when they are available. Dr. Whitaker cortexted information.
[2019-01-16] MEDS: metFORMIN HCl 1,000 MG Tablet 1000 MG PO ×2 (08:38→16:35)
--- NOTE | 2019-01-16 09:14 | NURSING ---
, Lakhwinder Francisco called in to see if he needed to come to hospital right away for discharge. Notified that there is no current discharge ordered. Lakhwinder states he has some chores to do and will be in to see patient later this morning.
[2019-01-16] MEDS: Furosemide 40 MG Tablet PO (09:27)
[2019-01-16] MEDS: DULoxetine Hcl 60 MG Capsule PO ×2 (09:27→21:22)
[2019-01-16] MEDS: Heparin Injection (Vial) 5,000 UNIT/ML VIAL 5000 UNIT SC ×2 (09:27→21:22)
--- NOTE | 2019-01-16 13:25 | CASEMGMT ---
RN JASMEET NOTE: PT/OT notes have been reviewd. SNF is recommended. RN CM to room at this time. Pt sitting up in recliner chair at this time. Pt has Alzheimer's type Dementia and is oriented to name and place at this time. , Des, just arrived to room at this time. Introduced self and role of EDMUNDO ALAMO. Discussed PT/OT recommendations with and he is agreeable to SNF. Given list of SNF's in network with pt's insurance. states 1st choice is [facility] and 2nd choice is [facility]. CESAR Escobar, made aware. Reviewed PUGA form with at this time and he denies having any questions. PUGA form signed by , copy made and placed on chart, and original given to . He was made aware to ask for CM if he has any questions. He voices understanding. Alen DARBY RN, CM
--- NOTE | 2019-01-16 13:27 | PN_ITS ---
Patient Problems: Active and Suspected Problems Forehead laceration (Acute) Closed head injury (Acute) Periorbital hematoma of left eye (Acute) Left periorbital and orbital contusion (Acute) Subjective: Chief complaint: Follow-up after admission for mechanical fall, forehead laceration, closed head injury, left periorbital hematoma and subconjunctival hemorrhage. Patient seen and examined today no acute events overnight. This morning, she complained of headache. She was not able to open her left eye. I was able to open her left eye and she was able to see. She denied dizziness or lightheadedness. Denies chest pain or shortness of breath. Her vital signs are stable. - Physical Exam Vitals/I&O's: Vital Signs Temp Pulse Resp BP Pulse Ox 98.8 F 92 18 113/66 94 01/16/19 08:31 01/16/19 09:30 01/16/19 08:31 01/16/19 08:31 01/16/19 09:30 Oxygen Flow Rate (L/min) 3 Oxygen Delivery Method Nasal Cannula Weight: 240 lb Body Mass Index (BMI) 47.1 Intake and Output for Last 24 Hours 01/14/19 01/15/19 01/16/19 23:59 23:59 23:59 Intake Total 1492.5 / 1492.5 240 / 240 Balance 1492.5 / 1492.5 240 / 240 General: Alert, Oriented x3, Cooperative, No apparent distress HEENT: PERRLA, Normocephalic, - - Traumatic, forehead laceration, no bleeding. Left periorbital hematoma, subconjunctival hemorrhage. Oral: Moist Mucosa, No Gingival or Mucosal Lesions/ Ulcerations Neck: Supple, No JVD, Negative Carotid Bruits, Trachea Midline, Thyroid Normal Size and Texture Lungs: Clear to auscultation, Normal air movement, No rhonchi, No wheeze, No rales, Diminished Cardiovascular: Regular rate, Regular Rhythm, Normal S1, Normal S2, PMI Normal Abdomen: Bowel Sounds Present, Soft, Non Tender, Non-Distended, No Hepato- splenomegaly, Obese Extremities: No clubbing, No cyanosis, Edema Skin: No rashes, No breakdown Lymphatic: No Cervical, Supraclavicular, or Inguinal Adenopathy Neurological: Cranial nerves II-XII grossly intact, Motor Exam 5/5 strength throughout Psych/Mental Status: Appropriate, Flat Affect Clinical Impression(s) from Imaging Studies Abdomen/Pelvis CT 01/15/19 09:57 IMPRESSION: Stable examination. No acute abnormality is seen. Electronically Signed: Jose Moni, at 12:27 EST , Service support , Brain CT 01/15/19 09:57 IMPRESSION: Soft tissue hematoma overlying the left orbital region. Electronically Signed: Jose Montenegro, at 12:31 EST , Service support , Cervical Spine CT 01/15/19 09:57 IMPRESSION: Multilevel degenerative changes, as described above. Electronically Signed: Jose Montenegro, at 12:34 EST , Service support , Chest X-Ray 01/15/19 09:57 IMPRESSION: No acute cardiopulmonary disease. Electronically Signed: Lashaun Villa MD at 7:49 EST , Service support , Facial/Sinus 01/15/19 09:57 IMPRESSION: Moderate sized left periorbital hematoma. Electronically Signed: Jose Montenegro, at 12:30 EST , Service support , Current Medications Hydrocodone Bitart/Acetaminophen ([place]oper 5mg-325mg) 1 tablet PO Q6H PRN PRN PRN Reason: Pain Score 4-10/10 Duloxetine HCl (Cymbalta) 60 mg PO BID [facility] Last Admin: 01/16/19 09:27 Dose: 60 mg Documented by: Furosemide (Lasix) 40 mg PO DAILY [facility] Last Admin: 01/16/19 09:27 Dose: 40 mg Documented by: Heparin Sodium (Porcine) (Heparin Na) 5,000 unit SC Q12 [facility] Last Admin: 01/16/19 09:27 Dose: 5,000 unit Documented by: Lorazepam (Ativan) 1 mg IV Q4H PRN PRN PRN Reason: ANXIETY/AGITATION Lorazepam (Ativan) 1 mg PO Q4H PRN PRN PRN Reason: ANXIETY/AGITATION Last Admin: 01/16/19 04:51 Dose: 1 mg Documented by: [facility] Admin: 01/16/19 08:38 Dose: 1,000 mg Documented by: Non-Formulary Medication (Memantine Hcl/Donepezil Hcl) 1 capsule PO DAILY [facility] Ondansetron HCl (Zofran) 4 mg IV Q8H PRN PRN PRN Reason: NAUSEA/VOMITING [facility] Pravastatin Sodium (Pravachol) 40 mg PO QHS [facility] Last Admin: 01/15/19 20:18 Dose: 40 mg Documented by: Sodium Chloride () 10 - 40 ml IV UD PRN PRN Reason: SALINE FLUSH Trazodone HCl (Desyrel) 100 mg PO QHS [facility] Last Admin: 01/15/19 20:18 Dose: 100 mg Documented by: Medical Necessity - Tobacco Use Smoking Status: Former smoker Assessment/Plan All Active Problems Forehead laceration (Acute) Closed head injury (Acute) Periorbital hematoma of left eye (Acute) Left periorbital and orbital contusion (Acute) This is a 73 years old female patient presented to the emergency room because of mechanical fall, found to have closed head injury, forehead laceration, left periorbital hematoma as well as left subconjunctival hemorrhage. #1 closed head injury/forehead laceration: Due to mechanical fall. CT scan abdomen showed no intracerebral bleed, revealed soft tissue hematoma of the left orbit. CT scan cervical spine showed no acute fractures. CT scan abdomen showed no acute intra-abdominal pathology. Her vital signs are stable. No focal deficit on physical exam. Patient was seen by PT OT and recommended placement to nursing home facility. #2 left periorbital hematoma/left subconjunctival hemorrhage: Traumatic due to mechanical fall. Patient was not on any anticoagulants. She does have significant left subconjunctival hemorrhage but she has been able to see with her left eye. I spoke with Dr. Steele at [facility], discussed the case with him and he stated that there is no indication for acute treatment this time and he will see the patient in his office as outpatient in the next couple of days after discharge. #3 type 2 diabetes mellitus: She is on metformin, plan to start Accu-Cheks q. before meals at bedtime, insulin sliding scale. #4 COPD: Denies any worsening shortness of breath. Pulse ox has been around 95% on 3 L. Chest x-ray showed no acute findings. Plan: Start DuoNeb every 6 hours, albuterol as needed, incentive spirometer. #5 hypertension: Blood pressure stable, she is only on Lasix. #6 anxiety and depression: Continue Ativan, trazodone. #7 Alzheimer's dementia: Continue memantine/donepezil. #8 DVT prophylaxis: Subcu heparin. This note was generated with [employer] dictation software. It may contain incorrect words, spelling, and punctuation that were not noted in checking the note before signing. Code Visit OBSV E&M: 23007 Subsequent observation care L2
--- NOTE | 2019-01-16 14:22 | CASEMGMT ---
Addendum entered by Rosalind Siddiqi 01/16/19 15:04: SW received call from Sakshi at [facility] stating she is able to accept pt and will submit for pre-cert. Plan: [facility] pending pre-cert Original Note: Social Work Note SW received referral for SNF placement. Pt's first choice for SNF is [facility] and second choice is [facility]. SW placed a call to Sakshi at [facility] and left her a message regarding referral. SW faxed referral. Plan: [facility] pending acceptance and pre-cert Rosalind Siddiqi MOSAIC LAYER, BI SOLUTIONS ARCHITECT
[2019-01-16] MEDS: Insulin Lispro 100 UNIT/ML INSULN.PEN SC (16:32)
[2019-01-16 17:21] LABS: Bedside Glucose 157 mg/dL (70-110)
--- NOTE | 2019-01-16 17:52 | NURSING ---
came out to desk asking what was given to his to calm her down. This RN reported that the MAR indicated 1mg of ativan PO was given this morning. The was very appreciative and said keep it up
[2019-01-16] MEDS: Ipratropium/Albuterol Sulfate 3 ML AMPUL.NEB INHALATION (19:18)
[2019-01-16] MEDS: Pravastatin 40 MG Tablet PO (21:22)
[2019-01-16] MEDS: traZODone 100 MG Tablet PO (21:22)
[2019-01-16] MEDS: Donepezil HCl 10 MG Tablet PO (21:42)
[2019-01-16] MEDS: Memantine Hydrochloride 10 MG Tablet PO (21:42)
[2019-01-16 22:31] LABS: Bedside Glucose 117 mg/dL (70-110)
[2019-01-17] VITALS (7 sets, daily range): BP systolic 102–117; BP diastolic 61–72; PULSE 71–99; RESP 16–20; TEMP 36.8–37.1; O2SAT 80–97
[2019-01-17] MEDS: Nystatin Powder 15gm Bottle 1 APPLIC TOPICAL ×2 (00:21→09:36)
[2019-01-17 06:46] LABS: Bedside Glucose 142 mg/dL (70-110)
[2019-01-17] MEDS: DULoxetine Hcl 60 MG Capsule PO (08:27)
[2019-01-17] MEDS: Memantine Hydrochloride 10 MG Tablet PO (08:27)
[2019-01-17] MEDS: metFORMIN HCl 1,000 MG Tablet 1000 MG PO (08:28)
[2019-01-17] MEDS: HYDROcodone Bitartrate/Apap 5/325 Tablet PO ×2 (08:32→14:23)
[2019-01-17] MEDS: Heparin Injection (Vial) 5,000 UNIT/ML VIAL 5000 UNIT SC (09:35)
[2019-01-17] MEDS: Furosemide 40 MG Tablet PO (09:36)
--- NOTE | 2019-01-17 10:23 | PCM.PROGNOTE ---
Patient Problems: Active and Suspected Problems Forehead laceration (Acute) Closed head injury (Acute) Periorbital hematoma of left eye (Acute) Left periorbital and orbital contusion (Acute) Subjective: Chief complaint: Follow-up after admission for mechanical fall, forehead laceration, closed head injury, left periorbital hematoma and subconjunctival hemorrhage. Patient seen and examined. No acute events overnight. She has no specific complaints apart from mild headache. She is still able to see in her left eye. Her vital signs are stable. - Physical Exam Vitals/I&O's: Vital Signs Temp Pulse Resp BP Pulse Ox 98.7 F 90 18 115/62 80 01/17/19 08:18 01/17/19 09:15 01/17/19 08:18 01/17/19 08:18 01/17/19 09:41 Oxygen Flow Rate (L/min) 3 Oxygen Delivery Method Room Air Weight: 240 lb Body Mass Index (BMI) 47.1 Intake and Output for Last 24 Hours 01/15/19 01/16/19 01/17/19 23:59 23:59 23:59 Intake Total 1492.5 / 1492.5 740 / 740 Balance 1492.5 / 1492.5 740 / 740 General: Alert, Oriented x3, Cooperative, No apparent distress HEENT: PERRLA, EOMI, Normocephalic, - - Traumatic, left periorbital hematoma. Oral: Moist Mucosa, No Gingival or Mucosal Lesions/ Ulcerations Neck: Supple, No JVD, Negative Carotid Bruits, Trachea Midline, Thyroid Normal Size and Texture Lungs: Clear to auscultation, Normal air movement, No rhonchi, No wheeze, No rales, Diminished Cardiovascular: Regular rate, Regular Rhythm, Normal S1, Normal S2, PMI Normal Abdomen: Bowel Sounds Present, Soft, Non Tender, Non-Distended, No Hepato-splenomegaly Extremities: No clubbing, No cyanosis, No edema Skin: No rashes, No breakdown Lymphatic: No Cervical, Supraclavicular, or Inguinal Adenopathy Neurological: Cranial nerves II-XII grossly intact, Neuro grossly intact Psych/Mental Status: Normal Affect, Appropriate Laboratory Results 01/16/19 16:28: POC Glucose 157 H 01/16/19 21:26: POC Glucose 117 H 01/17/19 06:16: POC Glucose 142 H Current Medications Hydrocodone Bitart/Acetaminophen ([place] 5mg-325mg) 1 tablet PO Q6H PRN PRN PRN Reason: Pain Score 4-10/10 Last Admin: 01/17/19 08:32 Dose: 1 tablet Documented by: Albuterol Sulfate (Ventolin Aerosols) 2.5 mg INHALATION Q4H PRN PRN PRN Reason: Shortness of breath, wheezing Albuterol/Ipratropium (Duoneb) 3 ml INHALATION Q6H.RT [facility] Last Admin: 01/17/19 07:28 Dose: Not Given Documented by: Donepezil HCl (Aricept) 10 mg PO QHS [facility] Last Admin: 01/16/19 21:42 Dose: 10 mg Documented by: Duloxetine HCl (Cymbalta) 60 mg PO BID [facility] Last Admin: 01/17/19 08:27 Dose: 60 mg Documented by: Furosemide (Lasix) 40 mg PO DAILY [facility] Last Admin: 01/17/19 09:36 Dose: 40 mg Documented by: Heparin Sodium (Porcine) (Heparin Na) 5,000 unit SC Q12 [facility] Last Admin: 01/17/19 09:35 Dose: 5,000 unit Documented by: Insulin Human Lispro (Humalog Kwikpen (Bkc)) 0 unit SC ACHS [facility]; Protocol Last Admin: 01/17/19 06:31 Dose: Not Given Documented by: Lorazepam (Ativan) 1 mg IV Q4H PRN PRN PRN Reason: ANXIETY/AGITATION Lorazepam (Ativan) 1 mg PO Q4H PRN PRN PRN Reason: ANXIETY/AGITATION Last Admin: 01/16/19 04:51 Dose: 1 mg Documented by: Memantine (Namenda) 10 mg PO BID [facility] Last Admin: 01/17/19 08:27 Dose: 10 mg Documented by: [facility] ([facility]) [facility] Last Admin: 01/17/19 08:28 Dose: 1,000 mg Documented by: Nystatin (Mycostatin Powder) 1 applic TOPICAL BID [facility]; Protocol Last Admin: 01/17/19 09:36 Dose: 1 applicatio Documented by: Ondansetron HCl (Zofran) 4 mg IV Q8H PRN PRN PRN Reason: NAUSEA/VOMITING Potassium Chloride (K-Dur) 20 meq PO BIDCM [facility] Last Admin: 01/17/19 08:27 Dose: 20 meq Documented by: Pravastatin Sodium (Pravachol) 40 mg PO QHS [facility] Last Admin: 01/16/19 21:22 Dose: 40 mg Documented by: Sodium Chloride () 10 - 40 ml IV UD PRN PRN Reason: SALINE FLUSH Trazodone HCl (Desyrel) 100 mg PO QHS [facility] Last Admin: 01/16/19 21:22 Dose: 100 mg Documented by: Medical Necessity - Tobacco Use Smoking Status: Former smoker Tobacco Use: Cigarettes Assessment/Plan All Active Problems Forehead laceration (Acute) Closed head injury (Acute) Periorbital hematoma of left eye (Acute) Left periorbital and orbital contusion (Acute) This is a 73 years old female patient presented to the emergency room because of mechanical fall, found to have closed head injury, forehead laceration, left periorbital hematoma as well as left subconjunctival hemorrhage. #1 closed head injury/forehead laceration: Due to mechanical fall. CT scan brain showed no intracerebral bleed, revealed soft tissue hematoma of the left orbit. CT scan cervical spine showed no acute fractures. CT scan abdomen showed no acute intra-abdominal pathology. Her vital signs are stable. Awaiting placement to [facility] facility. #2 left periorbital hematoma/left subconjunctival hemorrhage: Traumatic due to mechanical fall. Patient still able to see by her left eye, intact extraocular muscles. I spoke with Dr. Steele at [facility], discussed the case with him and he stated that there is no indication for acute treatment this time and he will see the patient in his office as outpatient in the next couple of days after discharge. Plan: Start Maxitrol eyedrops, follow-up with ophthalmology as outpatient. #3 type 2 diabetes mellitus: She is on metformin, blood sugar stable, continue insulin sliding scale. #4 COPD: Denies any worsening shortness of breath. Chest x-ray showed no acute findings. Continue DuoNeb every 6 hours, albuterol as needed, incentive spirometer. #5 hypertension: Blood pressure stable, she is only on Lasix. #6 anxiety and depression: Continue Ativan, trazodone. #7 Alzheimer's dementia: Continue memantine/donepezil. #8 DVT prophylaxis: Subcu heparin. This note was generated with XipLinkation software. It may contain incorrect words, spelling, and punctuation that were not noted in checking the note before signing. Code Visit OBSV E&M: 44978 Subsequent observation care L2
--- NOTE | 2019-01-17 10:53 | PCM.TXEXTCAR ---
- Diet 01/15/19 17:27 Diet: Calorie Controlled Food consistency:: Regular Liquid Consistency:: Regular/Thin Is pt able to select menu?: No How many daily calories?: 1800 calorie - Wound(s) above L eyebrow Wound Type: Laceration forehead Wound Type: Abrasion left elbow Wound Type: Abrasion - Suggestions for Active Care Change Position every (hours): 3 Hours to sit in a chair: 2 Times a day to sit in chair: 3 - Therapies Weight Bearing: Weight bearing as tolerated Physical Therapy: Eval and Treat Occupational Therapy: Eval and Treat - Allergies/Procedures Done in Hospital Allergies/Adverse Reactions: Allergies No Known Allergies Allergy (Verified 01/15/19 09:37) - Type of Care/Length of Stay Estimated LOS: Convalescent Care Less Than 30 days Type of Care Needed: Skilled Rehab Potential: Fair Prognosis: Fair - Additional Orders/Day of Discharge H&P will serve as current which was dated: 01/15/19 Day of Discharge: 01/17/19 - Follow Up Care Primary Care Physician: Stanley Page Chi, MD [Primary Care Provider] - Please follow up with your Primary Care Physician in: 1-2 weeks. Please Follow Up With: Chele Steele MD When: as scheduled this coming week.
--- NOTE | 2019-01-17 11:12 | CASEMGMT ---
Social Work Note CESAR faxed updated clinicals to [facility]. CESAR placed a call to pt's Des and updated him that [facility] is able to accept pt pending pre-cert. Des states understanding. Plan: [facility] pending pre-cert Rosalind Siddiqi HANDKERCHIEF CUTTER, REGISTERED NURSE MIDWIFE
[2019-01-17 11:31] LABS: Bedside Glucose 127 mg/dL (70-110)
[2019-01-17] MEDS: Neomycin/Polymyxin/Dexameth 5ML OPTH.BTL 2 DRP LEFT EYE ×2 (12:14→14:13)
[2019-01-17] MEDS: Ipratropium/Albuterol Sulfate 3 ML AMPUL.NEB INHALATION (13:48)
--- NOTE | 2019-01-17 14:10 | CASEMGMT ---
Social Work Note CESAR received call from Sakshi with [facility] stating pre-cert has been obtained and pt is able to discharge today. Physician had already completed discharge and discharge paperwork. CESAR faxed completed discharge paperwork to [facility] including transfer to extended care facility, signed medication list and any scripts. Original in SNF folder and copy on pt's chart. CESAR completed PAS/RR in HENS. Original in SNF folder and copy on pt's chart. CESAR placed a call to [facility] and arranged transportation via cot for 6:30pm. SW in to update pt, RN and pt's present in room. SW updated pt's Des that pre-cert has been obtained and pt can discharge to [facility] today. Des asked if he is able to transport pt. CESAR updated Des that he is able to transport pt if he wants to. Des confirms that he would like to transport pt and can transport pt in about an hour. RN present in room and heard conversation. CESAR placed a call to Sakshi at [facility] and updated her that pt's will be transporting pt in about an hour. Sakshi states understanding. CESAR placed a call to [facility] and cancelled transportation. Plan: [facility] skilled today with pt's transporting via private vehicle Rosalind Siddiqi WELL DIGGER, WINE MASTER
--- NOTE | 2019-01-17 15:09 | CHAPLAIN ---
Type of Pastoral Visit _x__ Initial Visit ___ Follow-up Visit ___ On-call Visit ___ General Patient Visit ___ Spiritual Assessment ___ Family Conference ___ Bereavement ___ Rapid Response ___ Code Blue ___ Other (describe below) Pastoral Care Referral From _x__ Patient ___ Family ___ Nurse ___ Physician ___ Assembler Faucets ___ Marine Surveyor ___ Other (describe below) Sacrament/Intervention _x__ Active listening ___ Anointing ___ Adventist ___ Bereavement ___ Communion ___ Bianca exploration ___ _x__ Life review _x__ Prayer ___ Reconciliation ___ Sacrament of Sick _x__ Supportive presence ___ Wedding ___ Other (describe below) Pastoral Comments
--- NOTE | 2019-01-17 15:31 | NURSING ---
Report called to Pily the receiving nurse.
--- NOTE | 2019-01-17 15:46 | DS.PCM_ITS ---
Discharge Date and Diagnosis Date of Admission: 01/15/19 Date of Discharge: 01/17/19 - Primary Discharge Diagnosis #1 closed head injury/forehead laceration. #2 mechanical fall. #3 left periorbital hematoma/left subconjunctival hemorrhage. - Secondary Discharge Diagnosis Chronic Problems Chronic neck pain (Chronic) Morbid obesity (Chronic) HTN (hypertension) (Chronic) HLD (hyperlipidemia) (Chronic) COPD (chronic obstructive pulmonary disease) (Chronic) SARAH (obstructive sleep apnea) (Chronic) Diabetes mellitus, type II (Chronic) Anxiety and depression (Chronic) Alzheimer's dementia (Chronic) Hospital Course and Treatment Imaging Results: Clinical Impression(s) from Imaging Studies Abdomen/Pelvis CT 01/15/19 09:57 IMPRESSION: Stable examination. No acute abnormality is seen. Electronically Signed: Jose Montenegro, at 12:27 EST , Service support , Brain CT 01/15/19 09:57 IMPRESSION: Soft tissue hematoma overlying the left orbital region. Electronically Signed: Jose Montenegro, at 12:31 EST , Service support , Cervical Spine CT 01/15/19 09:57 IMPRESSION: Multilevel degenerative changes, as described above. Electronically Signed: Jose Montenegro, at 12:34 EST , Service support , Chest X-Ray 01/15/19 09:57 IMPRESSION: No acute cardiopulmonary disease. Electronically Signed: Lashaun Villa MD at 7:49 EST , Service support , Facial/Sinus 01/15/19 09:57 IMPRESSION: Moderate sized left periorbital hematoma. Electronically Signed: Jose Montenegro, at 12:30 EST , Service support , Operations: None Procedures: None Summary of Care Provided: Patient seen and examined on the day of discharge and appeared to be stable to be discharged to [facility] facility. She is able to see on her left eye and she has been having good visual field with blurry vision. Her vital signs are stable. The patient is a 73 year old F patient presented to the emergency department because of mechanical fall and she was found to have closed head injury, forehead laceration, left periorbital hematoma and left subconjunctival hemorrhage. CT scan brain done on admission revealed soft tissue hematoma overlying the left orbital region, there was no evidence of intracerebral bleed or skull fractures. CT scan cervical spine revealed multilevel degenerative changes without acute fractures or dislocations. CT scan of the facial bones without contrast revealed moderate sized left gluteal hematoma, no fractures. CT scan abdomen and pelvis without contrast showed no acute intra-abdominal pathology. Chest x-ray showed no acute findings. Routine blood work was unremarkable. Urinalysis was clean and showed no evidence of acute cystitis. Patient was found to have left subconjunctival hemorrhage but she able to see by her left eye with eye movements. I spoke to Dr. Steele at [facility] [place] and discussed the case with him and he stated that there is no indication for urgent treatment and he will see the patient this coming week as outpatient. Patient was started on Maxitrol eyedrops which is a combination of antibiotics and steroids. Patient was evaluated by PT OT and recommended placement to [facility] facility. Patient discharged to [facility] facility in a stable medical condition, continued on her previous home medications without any changes, started on Maxitrol eyedrops, plan to follow-up with ophthalmology this coming week, recommended follow-up with PCP in 1 to 2 weeks. - Physical Exam Vitals/I&O's: Vital Signs Temp Pulse Resp BP Pulse Ox 98.2 F 93 16 102/72 92 01/17/19 14:15 01/17/19 14:15 01/17/19 14:15 01/17/19 14:15 01/17/19 14:15 Oxygen Flow Rate (L/min) 3 Oxygen Delivery Method Room Air Weight: 240 lb Body Mass Index (BMI) 47.1 Intake and Output for Last 24 Hours 11/13/19 11/14/19 11/15/19 23:59 23:59 23:59 Intake Total 1492.5 / 1492.5 740 / 740 Balance 1492.5 / 1492.5 740 / 740 General: Alert, Oriented x3, Cooperative, No apparent distress HEENT: PERRLA, EOMI, Normocephalic, - - Atraumatic, left periorbital hematoma. Oral: Moist Mucosa, No Gingival or Mucosal Lesions/ Ulcerations Neck: Supple, No JVD, Negative Carotid Bruits, Trachea Midline, Thyroid Normal Size and Texture Lungs: No rhonchi, No wheeze, No rales, Diminished Cardiovascular: Regular rate, Regular Rhythm, Normal S1, Normal S2, PMI Normal Abdomen: Bowel Sounds Present, Soft, Non Tender, Non-Distended, No Hepato- splenomegaly, Obese Extremities: No clubbing, No cyanosis, No edema Skin: No rashes, No breakdown Lymphatic: No Cervical, Supraclavicular, or Inguinal Adenopathy Neurological: Cranial nerves II-XII grossly intact, Neuro grossly intact Psych/Mental Status: Normal Affect, Appropriate Laboratory Results 01/16/19 16:28: POC Glucose 157 H 01/16/19 21:26: POC Glucose 117 H 01/17/19 06:16: POC Glucose 142 H 01/17/19 11:25: POC Glucose 127 H Home Medications: Medications to take at Discharge Duloxetine HCl 60 mg PO BID 03/28/16 Furosemide 40 mg PO DAILY 03/28/16 Meclizine HCl [Antivert] 25 mg PO Q6H PRN PRN 03/28/16 Memantine HCl/Donepezil HCl [Namzaric 28 mg-10 mg Capsule] 1 capsule PO DAILY 03/28/16 Trazodone HCl 100 mg PO QHS 03/28/16 Colchicine 0.6 mg PO DAILY 07/26/17 Potassium Chloride [K-Dur] 20 meq PO BID 07/26/17 Pravastatin Sodium 40 mg PO QHS 07/26/17 metFORMIN HCl [Glucophage] 1,000 mg PO BID 07/26/17 Multivit-Min/Iron/Folic/Lutein [Centrum Silver Women Tablet] 1 tablet PO DAILY 10/09/17 Neomycin/Polymyxin B/Dexametha [Maxitrol Eye Drops] 2 drp LEFT EYE Q4H #2 01/17/19 Following Prescrptions Were Given to Patient: Neomycin/Polymyxin B/Dexametha [Maxitrol Eye Drops] 2 drp LEFT EYE Q4H #2 Prescription Printed Primary Care Physician: Stanley Page Chi, MD [Primary Care Provider] - Please follow up with your Primary Care Physician in: 1-2 weeks. Please Follow Up With: Chele Steeel MD When: Sunday Disposition: [facility] facility Minutes spent on discharge:: 26 Patient Condition:: Stable Medical Necessity - Tobacco Use Smoking Status: Former smoker Tobacco Use: Cigarettes Meaningful Use Info Meaningful Use Diagnoses (Choose all that apply): None applicable Code Visit OBSV E&M: 50191 Observation care discharge
== END 2019-01-17 15:25 | disposition skilled nursing facility (03) ==
LOC: ED 13:20 → MS3 17:11
PROVIDERS: Admitting Provider Internal Medicine; Emergency Provider Emergency Medicine; Family Provider Family Medicine Geriatric Medicine; PCP Family Medicine Geriatric Medicine; Referring Provider Internal Medicine; Visit Provider Hospitalist
DX: S01.81XA Laceration without foreign body of other part of head, initial encounter (principal); W19.XXXA Unspecified fall, initial encounter; Y93.89 Activity, other specified; Y92.002 Bathroom of unspecified non-institutional (private) residence as the place of occurrence of the external cause; F02.80 Dementia in other diseases classified elsewhere, unspecified severity, without behavioral disturbance, psychotic disturbance, mood disturbance, and anxiety; G30.9 Alzheimer's disease, unspecified; I10 Essential (primary) hypertension; H11.32 Conjunctival hemorrhage, left eye; E11.9 Type 2 diabetes mellitus without complications; F32.9 Major depressive disorder, single episode, unspecified; F41.9 Anxiety disorder, unspecified; J44.9 Chronic obstructive pulmonary disease, unspecified; G47.33 Obstructive sleep apnea (adult) (pediatric); E78.5 Hyperlipidemia, unspecified; E66.01 Morbid (severe) obesity due to excess calories; G89.29 Other chronic pain; Z68.42 Body mass index [BMI] 45.0-49.9, adult; Z87.891 Personal history of nicotine dependence; Z71.3 Dietary counseling and surveillance; Z79.899 Other long term (current) drug therapy; Z79.84 Long term (current) use of oral hypoglycemic drugs
CPT/HCPCS: 12013; 70450; 70486; 71045; 72125; 74176; 80053; 81001; 82962; 83605; 83690; 84484; 85025; 93005; 94640; 96361; 96372; 96374; 96375; 97116; 97162; 97166; 97530; 97535; 99218; 99251; 99285; J7030; A4216; G0378; G0463; J2405

== ENCOUNTER → 2023-10-30 | Outpatient (CLI) | payer MEDICARE, SELFPAY ==
--- NOTE | 2023-10-30 07:30 | PET_ITS ---
EXAMINATION: FDG-Brain INDICATIONS: A 78-year-old female with a history of cognitive impairment presenting for initial staging examination. COMPARISON EXAMINATION: None available. TECHNIQUE: Following the intravenous administration of 12.3 mCi of F-18 deoxyglucose via the left wrist, multiplanar image acquisitions of the brain obtained at 60 minutes post radiopharmaceutical administration dated 10/30/23 via coregistration reveal: SERUM GLUCOSE LEVEL: 115 mg/dl. HEIGHT: inches. WEIGHT: lbs. FINDINGS: 1. Qualitative, visual analysis demonstrates asymmetric decreased glucose metabolism noted throughout the left cerebral hemisphere to include the left frontal, temporal, parietal, and occipital lobes. There is relative preservation of glucose metabolism noted in the remaining cerebral cortical structures, as well as basal ganglia and cerebellar hemispheres. 2. Quantitative analysis utilizing [employer] software demonstrates decreased glucose metabolism identified in the bilateral cerebral cortex with the most significant frontal lobe production noted in the left orbital frontal cortex with a Z score of -5.19. Decreased metabolism is noted in the left occipital cortex with a Z score of -7.54. The left precuneus demonstrates a Z score of -6.73 and the left inferior temporal cortex manifesting a Z score of -6.64. PET/PET Brain Metabolic Eval IMPRESSION: 1. There is both quantitative and qualitative scintigraphic evidence of altered glucose metabolism noted throughout the left cerebral hemisphere. On quantitative analysis, right hemispheric alterations in glucose concentration are also defined. Findings above likely represent diffuse neuronal dysfunction attributed to dementia, Alzheimer type. (Dayanna and Abby, Molecular Imaging and Biology 4:239, 2004). Electronic Signature Ridge Molina D.O. Electronically Signed: Ridge Molina DO at 7:58 EDT ,
== END | disposition home or self-care (01) ==
PROVIDERS: PCP Family Medicine Geriatric Medicine; Referring Provider Nurse Practitioner Adult Health; Visit Provider Nurse Practitioner Adult Health
DX: F03.90 Unspecified dementia, unspecified severity, without behavioral disturbance, psychotic disturbance, mood disturbance, and anxiety (principal)
CPT/HCPCS: 78608; A9552